=== PATIENT | female | born 1935 | race Caucasian/White ===

== ENCOUNTER 2016-07-09 15:28 | Outpatient (CLI) | payer MEDICARE, OTHER | END 2016-07-09 15:29 | disposition home or self-care (01) | DX: I82.811 Embolism and thrombosis of superficial veins of right lower extremity (principal) ==

== ENCOUNTER 2016-07-27 13:46 | Outpatient (CLI) | payer MEDICARE, OTHER | END 2016-07-27 13:47 | disposition home or self-care (01) | DX: I48.91 Unspecified atrial fibrillation (principal); Z79.01 Long term (current) use of anticoagulants; Z51.81 Encounter for therapeutic drug level monitoring; I82.401 Acute embolism and thrombosis of unspecified deep veins of right lower extremity ==

== ENCOUNTER 2016-07-30 10:34 | Outpatient (CLI) | payer MEDICARE, OTHER | END 2016-07-30 10:35 | disposition home or self-care (01) | DX: I48.91 Unspecified atrial fibrillation (principal); Z79.01 Long term (current) use of anticoagulants; Z51.81 Encounter for therapeutic drug level monitoring; I82.401 Acute embolism and thrombosis of unspecified deep veins of right lower extremity ==

== ENCOUNTER 2016-08-10 15:17 | Outpatient (CLI) | payer MEDICARE, OTHER | END 2016-08-10 15:18 | disposition home or self-care (01) | DX: I48.91 Unspecified atrial fibrillation (principal); I82.401 Acute embolism and thrombosis of unspecified deep veins of right lower extremity; Z51.81 Encounter for therapeutic drug level monitoring; Z79.01 Long term (current) use of anticoagulants ==

== ENCOUNTER 2016-08-17 15:30 | Outpatient (CLI) | payer MEDICARE, OTHER | END 2016-08-17 15:31 | disposition home or self-care (01) | LOC: LAB.F 15:30 | PROVIDERS: ATTEND Internal Medicine Cardiovascular Disease | DX: I48.91 Unspecified atrial fibrillation (principal); I82.401 Acute embolism and thrombosis of unspecified deep veins of right lower extremity; Z51.81 Encounter for therapeutic drug level monitoring; Z79.01 Long term (current) use of anticoagulants | CPT/HCPCS: 85610 ==

== ENCOUNTER 2016-09-04 14:20 | Outpatient (CLI) | payer MEDICARE, OTHER | END 2016-09-04 14:21 | disposition home or self-care (01) | LOC: LAB.F 14:20 | PROVIDERS: ATTEND Internal Medicine Cardiovascular Disease | DX: I48.91 Unspecified atrial fibrillation (principal); I82.401 Acute embolism and thrombosis of unspecified deep veins of right lower extremity; Z51.81 Encounter for therapeutic drug level monitoring; Z79.01 Long term (current) use of anticoagulants | CPT/HCPCS: 85610 ==

== ENCOUNTER 2016-10-04 13:42 | Outpatient (CLI) | payer MEDICARE, OTHER | END 2016-10-04 13:43 | disposition home or self-care (01) | LOC: LAB.F 13:42 | PROVIDERS: ATTEND Internal Medicine Cardiovascular Disease | DX: I48.91 Unspecified atrial fibrillation (principal); I82.401 Acute embolism and thrombosis of unspecified deep veins of right lower extremity; Z51.81 Encounter for therapeutic drug level monitoring; Z79.01 Long term (current) use of anticoagulants | CPT/HCPCS: 85610 ==

== ENCOUNTER 2016-10-11 08:00 | Outpatient (CLI) | payer MEDICARE, OTHER | END 2016-10-11 08:01 | LOC: LAB.F 08:00 | PROVIDERS: ATTEND Internal Medicine Cardiovascular Disease | DX: I48.91 Unspecified atrial fibrillation (principal); I82.401 Acute embolism and thrombosis of unspecified deep veins of right lower extremity | CPT/HCPCS: 85610 ==

== ENCOUNTER 2016-10-25 14:20 | Outpatient (CLI) | payer MEDICARE, OTHER | END 2016-10-25 14:21 | disposition home or self-care (01) | LOC: LAB.F 14:20 | PROVIDERS: ATTEND Internal Medicine Cardiovascular Disease | DX: I48.91 Unspecified atrial fibrillation (principal); I82.401 Acute embolism and thrombosis of unspecified deep veins of right lower extremity; Z51.81 Encounter for therapeutic drug level monitoring; Z79.01 Long term (current) use of anticoagulants | CPT/HCPCS: 85610 ==

== ENCOUNTER 2016-11-15 14:09 | Outpatient (CLI) | payer MEDICARE, OTHER | END 2016-11-15 14:10 | disposition home or self-care (01) | LOC: LAB.F 14:09 | PROVIDERS: ATTEND Internal Medicine Cardiovascular Disease | DX: I48.91 Unspecified atrial fibrillation (principal); I82.401 Acute embolism and thrombosis of unspecified deep veins of right lower extremity; Z79.01 Long term (current) use of anticoagulants; Z51.81 Encounter for therapeutic drug level monitoring | CPT/HCPCS: 85610 ==

== ENCOUNTER → 2016-11-29 | Outpatient (CLI) | payer MEDICARE, OTHER | LOC: LAB.F 08:00 | PROVIDERS: ATTEND Internal Medicine Cardiovascular Disease | DX: I48.91 Unspecified atrial fibrillation (principal); I82.401 Acute embolism and thrombosis of unspecified deep veins of right lower extremity; Z51.81 Encounter for therapeutic drug level monitoring; Z79.01 Long term (current) use of anticoagulants | CPT/HCPCS: 85610 ==

== ENCOUNTER 2016-12-13 13:19 | Outpatient (CLI) | payer MEDICARE, OTHER | END 2016-12-13 13:20 | disposition home or self-care (01) | LOC: LAB.F 13:19 | PROVIDERS: ATTEND Internal Medicine Cardiovascular Disease | DX: I48.91 Unspecified atrial fibrillation (principal); I82.401 Acute embolism and thrombosis of unspecified deep veins of right lower extremity; Z79.01 Long term (current) use of anticoagulants; Z51.81 Encounter for therapeutic drug level monitoring | CPT/HCPCS: 85610 ==

== ENCOUNTER 2016-12-27 13:41 | Outpatient (CLI) | payer MEDICARE, OTHER | END 2016-12-27 13:42 | disposition home or self-care (01) | LOC: LAB.F 13:41 | PROVIDERS: ATTEND Internal Medicine Cardiovascular Disease | DX: I48.91 Unspecified atrial fibrillation (principal); Z79.01 Long term (current) use of anticoagulants; I82.401 Acute embolism and thrombosis of unspecified deep veins of right lower extremity; Z51.81 Encounter for therapeutic drug level monitoring | CPT/HCPCS: 85610 ==

== ENCOUNTER 2017-02-14 14:13 | Outpatient (CLI) | payer MEDICARE, OTHER | END 2017-02-14 14:14 | disposition home or self-care (01) | LOC: LAB.F 14:13 | PROVIDERS: ATTEND Internal Medicine Cardiovascular Disease | DX: I48.91 Unspecified atrial fibrillation (principal); Z79.01 Long term (current) use of anticoagulants; Z51.81 Encounter for therapeutic drug level monitoring; I82.401 Acute embolism and thrombosis of unspecified deep veins of right lower extremity | CPT/HCPCS: 85610 ==

== ENCOUNTER 2017-03-18 08:00 | Outpatient (CLI) | payer MEDICARE, OTHER | END 2017-03-18 08:01 | disposition home or self-care (01) | LOC: LAB.F 08:00 | PROVIDERS: ATTEND Internal Medicine Cardiovascular Disease | DX: I48.91 Unspecified atrial fibrillation (principal); I82.401 Acute embolism and thrombosis of unspecified deep veins of right lower extremity; Z79.01 Long term (current) use of anticoagulants; Z51.81 Encounter for therapeutic drug level monitoring | CPT/HCPCS: 85610 ==

== ENCOUNTER 2017-04-18 12:31 | Outpatient (CLI) | payer MEDICARE, OTHER | END 2017-04-18 12:32 | disposition home or self-care (01) | LOC: LAB.F 12:31 | PROVIDERS: ATTEND Internal Medicine Cardiovascular Disease | DX: I48.91 Unspecified atrial fibrillation (principal); Z79.01 Long term (current) use of anticoagulants; Z51.81 Encounter for therapeutic drug level monitoring | CPT/HCPCS: 85610 ==

== ENCOUNTER 2017-06-18 13:27 | Outpatient (CLI) | payer MEDICARE, OTHER | END 2017-06-18 13:28 | disposition home or self-care (01) | LOC: LAB.F 13:27 | PROVIDERS: ATTEND Internal Medicine Cardiovascular Disease | DX: I48.91 Unspecified atrial fibrillation (principal); Z51.81 Encounter for therapeutic drug level monitoring; Z79.01 Long term (current) use of anticoagulants | CPT/HCPCS: 85610 ==

== ENCOUNTER 2017-08-15 11:19 | Outpatient (CLI) | payer MEDICARE, OTHER | END 2017-08-15 11:20 | disposition home or self-care (01) | LOC: LAB.F 11:19 | PROVIDERS: ATTEND Internal Medicine Cardiovascular Disease | DX: I48.91 Unspecified atrial fibrillation (principal); Z51.81 Encounter for therapeutic drug level monitoring; Z79.01 Long term (current) use of anticoagulants | CPT/HCPCS: 85610 ==

== ENCOUNTER 2017-09-13 11:25 | Outpatient (CLI) | payer MEDICARE, OTHER | END 2017-09-13 11:26 | disposition home or self-care (01) | LOC: LAB.F 11:25 | PROVIDERS: ATTEND Internal Medicine Cardiovascular Disease | DX: I48.91 Unspecified atrial fibrillation (principal); Z51.81 Encounter for therapeutic drug level monitoring; Z79.01 Long term (current) use of anticoagulants | CPT/HCPCS: 85610 ==

== ENCOUNTER 2017-10-14 14:25 | Outpatient (CLI) | payer MEDICARE, OTHER | END 2017-10-14 14:26 | disposition home or self-care (01) | LOC: LAB.F 14:25 | PROVIDERS: ATTEND Internal Medicine Cardiovascular Disease | DX: I48.91 Unspecified atrial fibrillation (principal); Z79.01 Long term (current) use of anticoagulants; Z51.81 Encounter for therapeutic drug level monitoring | CPT/HCPCS: 85610 ==

== ENCOUNTER 2017-11-13 14:47 | Outpatient (CLI) | payer MEDICARE, OTHER | END 2017-11-13 14:48 | disposition home or self-care (01) | LOC: LAB.F 14:47 | PROVIDERS: ATTEND Internal Medicine Cardiovascular Disease | DX: I48.91 Unspecified atrial fibrillation (principal); Z79.01 Long term (current) use of anticoagulants; Z51.81 Encounter for therapeutic drug level monitoring | CPT/HCPCS: 85610 ==

== ENCOUNTER 2017-12-16 13:35 | Outpatient (CLI) | payer MEDICARE, OTHER | END 2017-12-16 13:36 | disposition home or self-care (01) | LOC: LAB.F 13:35 | PROVIDERS: ATTEND Internal Medicine Cardiovascular Disease | DX: I48.91 Unspecified atrial fibrillation (principal); Z79.01 Long term (current) use of anticoagulants; Z51.81 Encounter for therapeutic drug level monitoring | CPT/HCPCS: 85610 ==

== ENCOUNTER 2018-01-28 11:55 | Outpatient (CLI) | payer MEDICARE, OTHER | END 2018-01-28 11:56 | disposition home or self-care (01) | LOC: LAB.F 11:55 | PROVIDERS: ATTEND Internal Medicine | DX: I48.91 Unspecified atrial fibrillation (principal); Z51.81 Encounter for therapeutic drug level monitoring; Z79.01 Long term (current) use of anticoagulants | CPT/HCPCS: 85610 ==

== ENCOUNTER 2018-02-11 13:10 | Outpatient (CLI) | payer MEDICARE, OTHER | END 2018-02-11 13:11 | disposition home or self-care (01) | LOC: LAB.F 13:10 | PROVIDERS: ATTEND Internal Medicine Cardiovascular Disease | DX: I48.91 Unspecified atrial fibrillation (principal); Z51.81 Encounter for therapeutic drug level monitoring; Z79.01 Long term (current) use of anticoagulants | CPT/HCPCS: 85610 ==

== ENCOUNTER 2018-02-25 14:17 | Outpatient (CLI) | payer MEDICARE, OTHER | END 2018-02-25 14:18 | disposition home or self-care (01) | LOC: LAB.F 14:17 | PROVIDERS: ATTEND Internal Medicine Cardiovascular Disease | DX: I48.91 Unspecified atrial fibrillation (principal); Z79.01 Long term (current) use of anticoagulants; Z51.81 Encounter for therapeutic drug level monitoring | CPT/HCPCS: 85610 ==

== ENCOUNTER 2018-04-09 14:48 | Outpatient (CLI) | payer MEDICARE, OTHER ==
[2018-04-09 17:55] LABS: CALCIUM 8.9 mg/dL (8.5-10.3); CREATININE 0.8 mg/dL (0.4-1.0)
== END 2018-04-09 14:49 | disposition home or self-care (01) ==
LOC: LAB.F 14:48
PROVIDERS: ATTEND Internal Medicine Cardiovascular Disease
DX: I10 Essential (primary) hypertension (principal); I50.22 Chronic systolic (congestive) heart failure
CPT/HCPCS: 36415; 80048

== ENCOUNTER 2018-04-24 12:00 | Outpatient (CLI) | payer MEDICARE, OTHER | END 2018-04-24 23:59 | disposition home or self-care (01) | LOC: LAB.F 12:00 | PROVIDERS: ATTEND Internal Medicine | DX: I48.91 Unspecified atrial fibrillation (principal); Z79.01 Long term (current) use of anticoagulants; Z51.81 Encounter for therapeutic drug level monitoring | CPT/HCPCS: 85610 ==

== ENCOUNTER 2018-05-27 14:58 | Outpatient (CLI) | payer MEDICARE, OTHER | END 2018-05-27 14:59 | disposition home or self-care (01) | LOC: LAB.F 14:58 | PROVIDERS: ATTEND Internal Medicine Cardiovascular Disease | DX: I48.91 Unspecified atrial fibrillation (principal); Z79.01 Long term (current) use of anticoagulants; Z51.81 Encounter for therapeutic drug level monitoring | CPT/HCPCS: 85610 ==

== ENCOUNTER 2018-06-25 14:15 | Outpatient (CLI) | payer MEDICARE, OTHER | END 2018-06-25 14:16 | disposition home or self-care (01) | LOC: LAB.F 14:15 | PROVIDERS: ATTEND Internal Medicine Cardiovascular Disease | DX: I48.91 Unspecified atrial fibrillation (principal); Z51.81 Encounter for therapeutic drug level monitoring; Z79.01 Long term (current) use of anticoagulants | CPT/HCPCS: 85610 ==

== ENCOUNTER 2018-07-31 12:00 | Outpatient (CLI) | payer MEDICARE, OTHER | END 2018-07-31 23:59 | disposition home or self-care (01) | LOC: LAB.F 12:00 | PROVIDERS: ATTEND Internal Medicine Cardiovascular Disease | DX: I48.91 Unspecified atrial fibrillation (principal); Z51.81 Encounter for therapeutic drug level monitoring; Z79.01 Long term (current) use of anticoagulants | CPT/HCPCS: 85610 ==

== ENCOUNTER 2018-09-04 14:57 | Outpatient (CLI) | payer MEDICARE, OTHER ==
[2018-09-04 17:27] LABS: INR 1.8 (0.8-1.2); PT - PROTHROMBIN TIME 20.4 secs (9.9-12.6)
== END 2018-09-04 14:58 | disposition home or self-care (01) ==
LOC: LAB.F 14:57
PROVIDERS: ATTEND Physician Assistant
DX: Z79.01 Long term (current) use of anticoagulants (principal)
CPT/HCPCS: 36415; 85610

== ENCOUNTER 2018-09-11 11:51 | Outpatient (CLI) | payer MEDICARE, OTHER ==
[2018-09-11 17:38] LABS: INR 1.9 (0.8-1.2); PT - PROTHROMBIN TIME 21.1 secs (9.9-12.6)
== END 2018-09-11 11:52 | disposition home or self-care (01) ==
LOC: LAB.F 11:51
PROVIDERS: ATTEND Physician Assistant
DX: Z79.01 Long term (current) use of anticoagulants (principal)
CPT/HCPCS: 36415; 85610

== ENCOUNTER 2018-09-23 15:22 | Outpatient (CLI) | payer MEDICARE, OTHER | END 2018-09-23 15:23 | disposition home or self-care (01) | LOC: LAB.F 15:22 | PROVIDERS: ATTEND Physician Assistant | DX: I48.91 Unspecified atrial fibrillation (principal) | CPT/HCPCS: 85610 ==

== ENCOUNTER 2018-11-26 15:04 | Outpatient (CLI) | payer MEDICARE, OTHER ==
--- NOTE | 2018-11-26 16:08 | Ultrasound Report ---
Reason: PAIN OF LEFT CALF Procedure Date: 11/26/2018 Accession Number: [id number] / [id number] Procedure: US - Duplex Ext Veins Left CPT Code: FULL RESULT: EXAM: LEFT LOWER EXTREMITY VENOUS ULTRASOUND EXAM DATE: 11/26/2018 03:10 PM. CLINICAL HISTORY: Pain of left calf. COMPARISON: DUPLEX EXT VEINS RIGHT 07/09/2016. DUPLEX EXT VEINS BILATERAL 02/11/2016. TECHNIQUE: Real-time sonographic vascular imaging was performed by the awning finisher through the lower extremity utilizing both color-flow and Doppler spectral analysis. Multiple medical collections representative static images were saved for review. FINDINGS: Common Femoral Vein (CFV): Normal. CFV-GSV Junction: Normal. Profunda Femoral Vein (PFV): Normal. Femoral Vein (FV) Prox: Normal. Femoral Vein (FV) Mid: Normal. Femoral Vein (FV) Dist: Normal. Popliteal Vein: Normal. Posterior Tibial Veins: Normal. Peroneal Veins: Normal. Other: Subcutaneous edema is confirmed in the medial subcutaneous soft tissues. IMPRESSION: Medial lower extremity subcutaneous edema. Otherwise no evidence for deep venous thrombosis. [facility] The call report notification system was initiated by Dr. Reggie Davis at 04:07 PM on 11/26/2018. The above call report findings were discussed with Natalia Rowell by Dr. Reggie Davis at 04:15 PM on 11/26/2018.
== END 2018-11-26 15:05 | disposition home or self-care (01) ==
LOC: DI 15:04
PROVIDERS: ATTEND Nurse Practitioner Family
DX: M79.662 Pain in left lower leg (principal); R60.0 Localized edema

== ENCOUNTER 2018-12-10 13:00 | Outpatient (CLI) | payer MEDICARE, OTHER | END 2018-12-10 13:01 | disposition home or self-care (01) | LOC: LAB.S 13:00 | PROVIDERS: ATTEND Physician Assistant | DX: I48.91 Unspecified atrial fibrillation (principal); Z79.01 Long term (current) use of anticoagulants | CPT/HCPCS: 85610 ==

== ENCOUNTER 2019-01-19 13:49 | Outpatient (CLI) | payer MEDICARE, OTHER | END 2019-01-19 13:50 | disposition home or self-care (01) | LOC: LAB.S 13:49 | PROVIDERS: ATTEND Physician Assistant | DX: Z79.01 Long term (current) use of anticoagulants (principal); I48.91 Unspecified atrial fibrillation | CPT/HCPCS: 85610 ==

== ENCOUNTER 2019-02-05 11:56 | Outpatient (CLI) | payer MEDICARE, OTHER | END 2019-02-05 11:57 | disposition home or self-care (01) | LOC: LAB.S 11:56 | PROVIDERS: ATTEND Physician Assistant | DX: Z79.01 Long term (current) use of anticoagulants (principal); I48.91 Unspecified atrial fibrillation | CPT/HCPCS: 85610 ==

== ENCOUNTER 2019-03-20 13:14 | Outpatient (CLI) | payer MEDICARE, OTHER | END 2019-03-20 13:15 | disposition home or self-care (01) | LOC: LAB.S 13:14 | PROVIDERS: ATTEND Physician Assistant | DX: Z79.01 Long term (current) use of anticoagulants (principal); I48.91 Unspecified atrial fibrillation | CPT/HCPCS: 85610 ==

== ENCOUNTER 2019-04-27 11:38 | Outpatient (CLI) | payer MEDICARE, OTHER | END 2019-04-27 11:39 | disposition home or self-care (01) | LOC: LAB.S 11:38 | PROVIDERS: ATTEND Physician Assistant | DX: Z79.01 Long term (current) use of anticoagulants (principal); I48.91 Unspecified atrial fibrillation | CPT/HCPCS: 85610 ==

== ENCOUNTER 2019-05-27 14:14 | Outpatient (CLI) | payer MEDICARE, OTHER | END 2019-05-27 14:15 | disposition home or self-care (01) | LOC: LAB.S 14:14 | PROVIDERS: ATTEND Physician Assistant | DX: Z79.01 Long term (current) use of anticoagulants (principal); I48.91 Unspecified atrial fibrillation | CPT/HCPCS: 85610 ==

== ENCOUNTER 2019-06-25 14:27 | Outpatient (CLI) | payer MEDICARE, OTHER | END 2019-06-25 14:28 | disposition home or self-care (01) | LOC: LAB.S 14:27 | PROVIDERS: ATTEND Physician Assistant | DX: I48.91 Unspecified atrial fibrillation (principal); Z79.01 Long term (current) use of anticoagulants | CPT/HCPCS: 85610 ==

== ENCOUNTER 2019-08-28 11:38 | Outpatient (CLI) | payer MEDICARE, OTHER | END 2019-08-28 11:39 | disposition home or self-care (01) | LOC: LAB 11:38 | PROVIDERS: ATTEND Physician Assistant | DX: I48.91 Unspecified atrial fibrillation (principal); Z79.01 Long term (current) use of anticoagulants | CPT/HCPCS: 85610 ==

== ENCOUNTER 2019-09-16 12:14 | Outpatient (CLI) | payer MEDICARE, OTHER | END 2019-09-16 12:15 | disposition home or self-care (01) | LOC: LAB.S 12:14 | PROVIDERS: ATTEND Physician Assistant | DX: I48.91 Unspecified atrial fibrillation (principal); Z79.01 Long term (current) use of anticoagulants | CPT/HCPCS: 85610 ==

== ENCOUNTER 2019-10-19 15:41 | Outpatient (CLI) | payer MEDICARE, OTHER | END 2019-10-19 15:42 | disposition home or self-care (01) | LOC: LAB.S 15:41 | PROVIDERS: ATTEND Physician Assistant | DX: I48.91 Unspecified atrial fibrillation (principal); Z79.01 Long term (current) use of anticoagulants | CPT/HCPCS: 85610 ==

== ENCOUNTER 2019-11-04 11:57 | Outpatient (CLI) | payer MEDICARE, OTHER | END 2019-11-04 11:58 | disposition home or self-care (01) | LOC: LAB.S 11:57 | PROVIDERS: ATTEND Physician Assistant | DX: I48.91 Unspecified atrial fibrillation (principal); Z79.01 Long term (current) use of anticoagulants | CPT/HCPCS: 85610 ==

== ENCOUNTER 2019-12-25 11:35 | Outpatient (CLI) | payer MEDICARE, OTHER | END 2019-12-25 11:36 | disposition home or self-care (01) | LOC: LAB.S 11:35 | PROVIDERS: ATTEND Physician Assistant | DX: I48.91 Unspecified atrial fibrillation (principal); Z79.01 Long term (current) use of anticoagulants | CPT/HCPCS: 85610 ==

== ENCOUNTER 2020-01-21 14:11 | Outpatient (CLI) | payer MEDICARE, OTHER | END 2020-01-21 14:12 | disposition home or self-care (01) | LOC: LAB.S 14:11 | PROVIDERS: ATTEND Physician Assistant | DX: I48.91 Unspecified atrial fibrillation (principal); Z79.01 Long term (current) use of anticoagulants | CPT/HCPCS: 85610 ==

== ENCOUNTER 2020-02-02 11:22 | Outpatient (CLI) | payer MEDICARE, OTHER | END 2020-02-02 11:23 | disposition home or self-care (01) | LOC: LAB.S 11:22 | PROVIDERS: ATTEND Physician Assistant | DX: I48.91 Unspecified atrial fibrillation (principal); Z79.01 Long term (current) use of anticoagulants | CPT/HCPCS: 85610 ==

== ENCOUNTER 2020-03-09 12:45 | Outpatient (CLI) | payer MEDICARE, OTHER | END 2020-03-09 12:46 | disposition home or self-care (01) | LOC: LAB.S 12:45 | PROVIDERS: ATTEND Physician Assistant | DX: Z79.01 Long term (current) use of anticoagulants (principal); I48.91 Unspecified atrial fibrillation | CPT/HCPCS: 85610 ==

== ENCOUNTER 2020-03-25 12:25 | Outpatient (CLI) | payer MEDICARE, OTHER | END 2020-03-25 12:26 | disposition home or self-care (01) | LOC: LAB.S 12:25 | PROVIDERS: ATTEND Physician Assistant | DX: Z79.01 Long term (current) use of anticoagulants (principal); I48.91 Unspecified atrial fibrillation | CPT/HCPCS: 85610 ==

== ENCOUNTER 2020-04-28 12:15 | Outpatient (CLI) | payer MEDICARE, OTHER | END 2020-04-28 12:16 | disposition home or self-care (01) | LOC: LAB.S 12:15 | PROVIDERS: ATTEND Physician Assistant | DX: I48.91 Unspecified atrial fibrillation (principal); Z79.01 Long term (current) use of anticoagulants | CPT/HCPCS: 85610 ==

== ENCOUNTER 2020-05-30 11:28 | Outpatient (CLI) | payer MEDICARE, OTHER | END 2020-05-30 11:29 | disposition home or self-care (01) | LOC: LAB.S 11:28 | PROVIDERS: ATTEND Physician Assistant | DX: Z79.01 Long term (current) use of anticoagulants (principal); I48.91 Unspecified atrial fibrillation | CPT/HCPCS: 85610 ==

== ENCOUNTER 2021-04-11 11:54 | Outpatient (CLI) | payer MEDICARE, OTHER | END 2021-04-11 11:55 | disposition home or self-care (01) | LOC: LAB.S 11:54 | PROVIDERS: ATTEND Physician Assistant | DX: Z79.01 Long term (current) use of anticoagulants (principal); I48.91 Unspecified atrial fibrillation | CPT/HCPCS: 36416; 85610 ==

== ENCOUNTER 2021-05-27 11:32 | Emergency (ER) | payer MEDICARE, OTHER ==
--- NOTE | 2021-05-27 11:57 | ED Physician Documentation ---
PD HPI HEAD INJURY - Stated complaint Stated Complaint: WRIST PX - Chief complaint Chief Complaint: Trauma Hd/Nk - History obtained from History obtained from: Patient - History of Present Illness Mechanism of head injury: Fell Where head injury occurred: Home Timing - onset: Enter time (1800), Last night Location of injury: Right, Front Quality of pain: Pain Associated symptoms: Other (injury to the right wrist). No: LOC, AMS, Amnesia, Nausea / vomiting, Neck pain, Paresthesias, Seizures, Ear drainage, Nasal drainage Symptoms improve with: Rest Symptoms worsen with: Palpation, Movement Contributing factors: Anticoagulated Similar symptoms before: Has not had sx before Recently seen: Not recently seen - Additional information Additional information: Previously well 85-year-old female on Coumadin with a history of atrial fibrillation and a history of CLL as well as an aortic aneurysm has had a fall in her home last night when she tripped over the leg of a rocking chair. She fell forward striking the right sabianist. She did not have loss of consciousness and she denies any neck pain she denies any dizziness lightheadedness numbness tingling or weakness. She injured her right wrist when this occurred and this is her main complaint. She complains of pain to the dorsal aspect of the wrist with a lot of swelling. She denies any pain to her neck she denies any difficulty with dizziness lightheadedness confusion or nausea associated with her head injury. Review of Systems Constitutional: denies: Fever, Chills, Myalgias Eyes: denies: Decreased vision Ears: denies: Ear pain Nose: denies: Rhinorrhea / runny nose, Congestion Throat: denies: Sore throat Cardiac: denies: Chest pain / pressure, Palpitations Respiratory: denies: Dyspnea, Cough GI: denies: Abdominal Pain, Nausea, Vomiting, Constipation, Diarrhea : denies: Dysuria, Frequency Skin: denies: Rash Musculoskeletal: reports: Extremity pain, Joint pain, Extremity swelling, Joint swelling. denies: Neck pain, Back pain Neurologic: denies: Generalized weakness, Focal weakness, Numbness PD PAST MEDICAL HISTORY - Past Medical History Cardiovascular: Hypertension, Atrial fibrillation, Valve disorder, Other Respiratory: Shortness of breath Endocrine/Autoimmune: None GI: None ARC AND GAS WELDER: None : None HEENT: Glaucoma Psych: None Musculoskeletal: Osteoporosis Derm: None - Past Surgical History Past Surgical History: Yes General: Bowel surgery, Colonoscopy /ARC AND GAS WELDER: Hysterectomy Cardiovascular: Valve replacement HEENT: Cataracts, Detached retina repair - Present Medications Home Medications: Ambulatory Orders Medication Instructions Recorded Confirmed Digoxin 0.125 mg PO DAILY 02/08/13 05/27/21 Furosemide 40 mg PO BID 02/08/13 05/27/21 Metoprolol Succinate 100 mg PO BID 02/11/16 05/27/21 Potassium Chloride [Micro-K] 10 meq PO BID 02/11/16 05/27/21 Warfarin [Coumadin] 5 mg PO DAILY 01/13/18 05/27/21 Losartan Potassium [Cozaar] 100 mg PO DAILY 05/27/21 05/27/21 - Allergies Allergies/Adverse Reactions: Allergies Allergy/AdvReac Type Severity Reaction Status Date / Time No Known Drug Allergies Allergy Verified 05/27/21 11:46 - Social History Does the pt smoke?: No Smoking Status: Never smoker Does the pt drink ETOH?: No Does the pt have substance abuse?: No - Immunizations Immunizations are current?: Yes - POLST Patient has POLST: No PD ED PE NORMAL - Vitals Vital signs reviewed: Yes (hypertensive ) - General General: Alert and oriented X 3, No acute distress, Well developed/nourished, Other (happy go charlie lady in no distress pleasant.) - HEENT HEENT: Other (Nice older lady with ecchymosis to the right timmy-orbital tissues without laceration or evidence of entrapment. The left Pupil is large status post surgery. Right is normally reactive.) - Neck Neck: Supple, no meningeal sign, No bony TTP - Cardiac Cardiac: Other (irregularly irregular rate and rhythm with 2/6 holosystolic murmer. ) - Respiratory Respiratory: No respiratory distress, Clear bilaterally - Abdomen Abdomen: Soft, Non tender - Back Back: No CVA TTP, No spinal TTP - Derm Derm: Normal color, Warm and dry, No rash - Extremities Extremities: Other (There is fracture deformity to the right dorsal wrist with swelling point tenderness and ecchymosis. 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 No significant intracranial abnormality is seen. Age-appropriate brain parenchymal volume loss and chronic small vessel ischemic change can be seen.), EMP read indepedently, See rad report wrist Radiology: Prelim report reviewed (Impression: No displaced fractures are seen on these plain films. If there is snuffbox tenderness (or other clinical concern for a fracture not seen in these pictures) please consider a dedicated CT study for further evaluation. The generalized degenerative changes are seen, which are worst involv), EMP read indepedently, See rad report PD MEDICAL DECISION MAKING - ED course Complexity details: reviewed results, re-evaluated patient, considered differential, d/w patient ED course: [id number] female on Coumadin for atrial fibrillation on her home last night tripping and she has injured her forehead with some ecchymosis in the periorbital tissues. She has no evidence of intracranial hemorrhage on CT examination of the head. She also has injured her right wrist and is unable to open a door even with the splint on. 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 She is placed into a volar splint I have asked her to follow-up with orthopedics. Departure - Departure Disposition: 01 Home, Self Care Clinical Impression: Concussion Qualifiers: Encounter type: initial encounter Loss of consciousness presence/duration: without LOC Qualified Code(s): S06.0X0A - Concussion without loss of consciousness, initial encounter Right wrist sprain Qualifiers: Encounter type: initial encounter Qualified Code(s): S63.501A - Unspecified sprain of right wrist, initial encounter Condition: Stable Instructions: ED Concussion, ED Sprain Wrist Follow-Up: Marlen Prescott ARNP [Primary Care Provider] - Justin Villanueva MD [Provider Admit Priv/Credential] - Comments: Erin, today your CT of your head does not show any bleeding. There are abnormalities to the wrist x-ray to suggest a bad sprain and follow up with the orthopedic doctor is recommended. Discharge Date/Time: 05/27/21 13:17
--- NOTE | 2021-05-27 12:22 | CT Report ---
PROCEDURE: HEAD WO INDICATIONS: coumadin, head injury TECHNIQUE: Noncontrast 4.5 mm thick angled axial sections acquired from the foramen magnum to the vertex. For r adiation dose reduction, the following was used: automated exposure control, adjustment of mA and/or kV according to patient size. COMPARISON: None. FINDINGS: Image quality: Excellent. CSF spaces: Basal cisterns are patent. No extra-axial fluid collections. Ventricles are normal in size and shape. Brain: No midline shift. No intracranial masses or hemorrhage. Urrutia-white matter interface is norm al. Age-appropriate brain parenchymal volume loss and chronic small vessel ischemic change can be se en. Mild symmetric calcification can be seen involving the basal ganglia, which is considered to be normal for age. Skull and face: Calvarium and visualized facial bones are intact, without suspicious lesions. Appar ent postoperative change can be seen along the lateral aspect of the right lobe, as on series 7 image 18. Sinuses: Visualized sinuses and mastoids are clear. IMPRESSION: No intracranial hemorrhage is seen. No significant intracranial abnormality is seen. Age-appropriate brain parenchymal volume loss and chronic small vessel ischemic change can be seen. Reviewed by: Quinn Fisher MD on 05/27/2021 11:21 AM [facility] Approved by: Quinn Fisher MD on 05/27/2021 11:21 AM [facility] Station ID: [id number]
--- NOTE | 2021-05-27 12:31 | XRAY Report ---
PROCEDURE: Wrist 4 View RT INDICATIONS: fall pain to the dorsal aspect of wrist. TECHNIQUE: 4 views of the wrist were acquired. COMPARISON: None FINDINGS: Bones: No acute appearing fractures or dislocations. Remote appearing deformity can be seen of the d istal ulna, which is likely related to remote fracture. There is mild widening of the scapholunate in terface. Degenerative changes are seen, which are worst involving the first carpometacarpal joint. No suspicio us bony lesions. Scaphoid view: No scaphoid fractures are seen. Soft tissues: Mild generalized soft tissue swelling is seen. IMPRESSION: No displaced fractures are seen on these plain films. If there is snuffbox tenderness (or other clinical concern for a fracture not seen on these images) p lease consider a dedicated CT study for further evaluation. Generalized degenerative changes are seen, which are worst involving the first carpometacarpal joint. There is mild scapholunate widening. A scapholunate ligament tear is suspected. Reviewed by: Quinn Fisher MD on 05/27/2021 11:29 AM [facility] Approved by: Quinn Fisher MD on 05/27/2021 11:29 AM [facility] Station ID: [id number]
[2021-05-27 13:07] VITALS: BP 145/66
== END 2021-05-27 13:17 | disposition home or self-care (01) ==
LOC: ED 11:32
DX: S06.0X0A Concussion without loss of consciousness, initial encounter (principal); S63.501A Unspecified sprain of right wrist, initial encounter; W01.0XXA Fall on same level from slipping, tripping and stumbling without subsequent striking against object, initial encounter; Y92.009 Unspecified place in unspecified non-institutional (private) residence as the place of occurrence of the external cause; Z79.01 Long term (current) use of anticoagulants; I48.91 Unspecified atrial fibrillation; I10 Essential (primary) hypertension; Z95.2 Presence of prosthetic heart valve
CPT/HCPCS: 29125; 36415; 99282; 99284

== ENCOUNTER 2023-08-12 12:44 | Outpatient (CLI) | payer MEDICARE, OTHER ==
[2023-08-12 14:43] LABS: BASOPHILS % (AUTO) 0.4 %; EOSINOPHILS % (AUTO) 1.1 %; HCT - HEMATOCRIT 35.1 % (37.0-47.0); HGB - HEMOGLOBIN 11.1 g/dL (12.0-16.0); MEAN CORPUSCULAR HEMOGLOBIN 33.2 pg (27.0-31.0); MEAN CORPUSCULAR HGB CONC 31.6 g/dL (32.0-36.0); MEAN CORPUSCULAR VOLUME 105.1 fL (81.0-99.0); MEAN PLATELET VOLUME 10.2 fL (7.9-10.8); MONOCYTES % (AUTO) 5.1 %; NEUTROPHILS % (AUTO) 36.2 %; PLT - PLATELET COUNT 134 10^3/uL (130-450); RED BLOOD COUNT 3.34 10^6/uL (4.20-5.40); RED CELL DISTRIBUTION WIDTH 14.6 % (12.0-15.0); WHITE BLOOD COUNT 9.5 x10^3/uL (4.8-10.8)
[2023-08-12 14:51] LABS: BAND NEUTROPHILS % (MANUAL) 0 %
[2023-08-12 15:04] LABS: ALBUMIN 4.1 g/dL (3.2-5.5); ALBUMIN/GLOBULIN RATIO 1.5 (1.0-2.2); BILIRUBIN,TOTAL 0.7 mg/dL (0.2-1.0); CALCIUM 9.7 mg/dL (8.5-10.3); CREATININE 1.8 mg/dL (0.6-1.3); POTASSIUM 4.2 mmol/L (3.5-4.5); TOTAL PROTEIN 6.8 g/dL (6.4-8.9)
[2023-08-12 17:02] LABS: ABNORMAL LYMPHS % (MANUAL) 13 %; BASOPHILS # (MANUAL) 0.1 10^3/uL (0-0.1); BASOPHILS % (MANUAL) 1 %; EOSINOPHILS # (MANUAL) 0.2 10^3/uL (0-0.7); LYMPHOCYTES # (MANUAL) 5.9 10^3/uL (1.5-3.5); LYMPHOCYTES % (MANUAL) 49 %; MONOCYTES # (MANUAL) 0.2 10^3/uL (0.0-1.0); MYELOCYTES % (MANUAL) 2 %; NEUTROPHILS # (MANUAL) 2.9 10^3/uL (1.5-6.6)
[2023-08-12 17:07] LABS: DIFFERENTIAL COMMENT MANUAL DIFFERENTIAL; PLATELET ESTIMATE, MANUAL NORMAL (130-450,000) (NORMAL); PLATELET MORPHOLOGY NORMAL APPEARANCE (NORMAL)
== END 2023-08-12 12:45 | disposition home or self-care (01) ==
LOC: LAB.S 12:44
PROVIDERS: ATTEND Nurse Practitioner
DX: R60.0 Localized edema (principal)
CPT/HCPCS: 36415; 80053; 83880; 85025

== ENCOUNTER 2023-11-22 16:30 | Outpatient (CLI) | payer MEDICARE, OTHER | END 2023-11-22 16:31 | disposition critical access hospital (66) | LOC: EMS 16:30 | DX: M54.50 Low back pain, unspecified (principal); W18.39XA Other fall on same level, initial encounter; Y93.89 Activity, other specified; Y92.008 Other place in unspecified non-institutional (private) residence as the place of occurrence of the external cause | CPT/HCPCS: A0425; A0427 ==

== ENCOUNTER 2023-11-22 16:54 | Emergency (ER) | payer MEDICARE, OTHER ==
--- NOTE | 2023-11-22 17:01 | ED Physician Documentation ---
History of Present Illness - Stated complaint Stated Complaint: GLF - History obtained from History obtained from: Patient - Additonal information Additional information: Patient is a 88-year-old female presenting to the emergency department from home after a fall at home. Patient was carrying wood outside when she tripped and fell. Patient does not recall hitting her head or losing consciousness however patient is on warfarin. She notes persistent back pain and was unable to get back up. Patient has chronic history of thoracic back pain and wears a brace when doing heavy lifting however patient has no history of lumbar back pain. She notes pain is to her lower back with left sided radiation. She has no numbness or tingling in her legs. She received 50 mcgs of fentanyl prior to arrival. PD PAST MEDICAL HISTORY - Present Medications Home Medications: Ambulatory Orders Medication Instructions Recorded Confirmed Warfarin [Coumadin] 5 mg PO DAILY 01/13/18 11/22/23 Losartan Potassium [Cozaar] 100 mg PO DAILY 05/27/21 11/22/23 carvediloL [Coreg] 25 mg PO DAILY 06/11/22 11/22/23 HYDROcod/ACETAM 5/325 [[place] 5/325] 1 - 2 tab PO Q6H PRN #15 tablet 11/22/23 Torsemide 20 mg PO DAILY 11/22/23 11/22/23 - Allergies Allergies/Adverse Reactions: Allergies Allergy/AdvReac Type Severity Reaction Status Date / Time No Known Drug Allergies Allergy Unverified 11/22/23 17:12 PD ED PE NORMAL - Vitals Vital signs reviewed: Yes - General General: Alert and oriented X 3 - HEENT HEENT: Atraumatic - Neck Neck: C-Spine cleared by NEXUS criteria - Cardiac Cardiac: RRR, Other (Irregular heart rhythm on palpation.) - Respiratory Respiratory: No respiratory distress, Clear bilaterally - Abdomen Abdomen: Normal bowel sounds - Back Back: No CVA TTP, Other (Reproducible thoracic spinous process tenderness and lumbar spinous process tenderness on palpation. No obvious step-off no obvious swelling or bruising appreciated. No rib tenderness on examination.) - Derm Derm: Other - Extremities Extremities: No deformity - Neuro Neuro: Alert and oriented X 3, No motor deficit, No sensory deficit, Other (Patient intact sensation and strength bilaterally lower extremities.) Eye Opening: Spontaneous Motor: Obeys Commands Verbal: Oriented GCS Score: 15 Results - Vitals Vitals: Vital Signs - 24 hr 11/22/23 11/22/23 11/22/23 17:04 19:12 21:35 Temperature 35.6 C L Heart Rate 60 78 83 Respiratory 17 14 21 Rate Blood Pressure 152/77 H 155/71 H 152/94 H O2 Saturation 93 100 96 If not protocol 2 : Oxygen Flow, liters/minute Oxygen O2 Source Nasal cannula - EKG (time done) 1717 EKG releavant findings:: EKG personally interpreted by author of this note. Relevant findings are: Rate: Rate (enter#), Gabino, Tachy, Other Rhythm: Atrial fibrillation Fleming: LAD QRS: Poor R wave progression Ischemia: Normal ST segments Compare to prior EKG: Unchanged from prior EKG, Other (There appears to be T wave inversion in lateral leads and anterior leads. Compared with EKG in 2016 no acute changes.) Computer interpretation: Agree with computer - Labs Labs: Laboratory Tests 11/22/23 11/22/23 11/22/23 17:06 17:06 17:06 WBC 8.0 RBC 3.13 L Hgb 10.2 L Hct 32.4 L MCV 103.5 H MCH 32.6 H MCHC 31.5 L RDW 13.8 Plt Count 116 L MPV 10.0 Neut # (Auto) 3.8 Lymph # (Auto) 3.7 H [place] # (Auto) 0.4 Eos # (Auto) 0.1 Baso # (Auto) 0.0 Absolute Nucleated RBC 0.00 Nucleated RBC % 0.0 PT 24.5 H INR 2.4 H Sodium 137 Potassium 4.6 H Chloride 101 Carbon Dioxide 30 Anion Gap 6.0 BUN 53 H Creatinine 1.6 H Estimated GFR (MDRD) 30 L Glucose 125 H Calcium 9.2 Total Bilirubin 0.6 AST 22 ALT 12 Alkaline Phosphatase 35 L Total Protein 6.2 L Albumin 3.7 Globulin 2.5 Albumin/Globulin Ratio 1.5 - Rads (name of study) CT head Relevant Findings:: EMP independent interpretation of test CT thoracic and lumbar spine Relevant Findings:: EMP independent interpretation of test, Other PD Medical Decision Making - ED course Complexity details: reviewed old records, reviewed results, re-evaluated patient ED course: Patient is an 88-year-old female who presents to the emergency department after a fall at home. Patient tripped after carrying wood when taking down a bunch. Patient denies losing consciousness she denies hitting her head. Patient is on warfarin. 1720: Patient became nauseous and lightheaded. Patient's reading on pulse ox went down to 20 bpm. Reevaluated patient she is feeling much better we will give a small dose of Zofran here in emergency department. Patient also given ice packs to cool her off as she was diaphoretic when she came in concerns for possible heat exhaustion. Patient EKG obtained shortly after shows atrial fibrillation with abnormal ischemia in diffuse leads. This is unchanged from prior EKG in 08/2015. CT of head obtained given patient is on warfarin and concern for fall with patient unable to get up concern for possible injury to head. Additionally lumbar spinous process tenderness on examination and thoracic spinous process tenderness on examination will obtain CT scan of thoracic and lumbar spine. Patient C-spine cleared with NEXUS criteria here in the ED. Basic labs obtained here given patient is on blood thinners and concern for possible head bleed. INR is 2.4 this appears stable with history of atrial fibrillation. Creatinine is 1.6. This is not significantly off patient's baseline. Hemoglobin is 10.1 additionally this is similar to patient's baseline. Patient CT findings here in the emergency department were concerning for lumbar fractures with fracture to transverse process L1-L4 chronic fracture to T12 and unstable fracture to T8 of thoracic process. Patient continues to have no focal neurodeficit. [facility] was called due to significant fractures to spine. Discussed case with Dr. Morrell at [facility] he notes patient as long as she can walk there is no acute intervention needed at this time. Patient's CT spine was returned negative no signs of fracture. Patient able to walk here in emergency department. Patient feels safe to go home at this time. Patient instructed to follow-up with orthopedics as Dr. Morrell recommended in 2 to 3 weeks. She will follow-up with him for spine surgery. She understands and is agreeable with this plan. Patient instructed to watch for numbness tingling or worsening pain in her legs. Or any weakness. Patient agreeable with this plan she has a walker at home does not need one here. Patient able to walk out of emergency department. Departure - Departure Disposition: 01 Home, Self Care Clinical Impression: Thoracic spine fracture, Lumbar transverse process fracture Condition: Fair Instructions: ED Sprain Thoracic Spine Follow-Up: Andrés Morrell MD [Physician No Access] - Prescriptions: HYDROcod/ACETAM 5/325 [[place] 5/325] 1 - 2 tab PO Q6H PRN #15 tablet PRN Reason: Pain Comments: I am prescribing a short course of narcotic pain medication for you. These are potentially dangerous and addictive medications that should be used carefully. These medications may constipate you. Take an jhsr-aho-bgaxpjf stool softener (docusate) twice daily with plenty of water while taking these medications. If you go 24 hours without a bowel movement, take czhl-gjc-hliictw miralax, per package instructions. Do not drink or drive while taking these medications. If you received narcotic or sedating medications while in the emergency department, do not drive for 24 hours. Store this medication in a safe, secure place and out of reach of children. It is a violation of federal law to give or sell this medication to another person or to use in a manner other than prescribed. The ED will not refill narcotic prescriptions, including prescriptions lost or stolen. To dispose of unwanted medications: 1. [facility] provides a drop box for medication in pill form only (no liquids) 8:00 am to 4:30 p.m. Saturday-Saturday in the lobby of the [facility], [address] [place] [address]. Empty pills into ziplock bag before disposal. Call [phone] for information. 2.[employer] is a free service available to all [facility] residents. Go to [email or web address]/[email or web address]/ Note that many narcotic pain relievers also contain Tylenol/acetaminophen. Please ensure that your total dose of acetaminophen from all sources does not exceed 3 g (3000 mg) per day. You were seen here in the emergency department you need to follow-up with orthopedics in the outpatient setting I have given you the phone number in 2 to 3 weeks you need to follow-up. Your symptoms of low back pain were given pain medications please read narcotic pain medication agreement above. Additionally please watch for any numbness tingling weakness loss of sensation to your lower legs this is a sign of worsening fracture and you need to return to admit emergency department immediately.
[2023-11-22 17:14] LABS: BASOPHILS % (AUTO) 0.5 %; EOSINOPHILS # (AUTO) 0.1 10^3/uL (0.0-0.7); EOSINOPHILS % (AUTO) 0.9 %; HCT - HEMATOCRIT 32.4 % (37.0-47.0); HGB - HEMOGLOBIN 10.2 g/dL (12.0-16.0); LYMPHOCYTES # (AUTO) 3.7 10^3/uL (1.5-3.5); LYMPHOCYTES % (AUTO) 45.7 %; MEAN CORPUSCULAR HEMOGLOBIN 32.6 pg (27.0-31.0); MEAN CORPUSCULAR HGB CONC 31.5 g/dL (32.0-36.0); MEAN CORPUSCULAR VOLUME 103.5 fL (81.0-99.0); MONOCYTES # (AUTO) 0.4 10^3/uL (0.0-1.0); NEUTROPHILS # (AUTO) 3.8 10^3/uL (1.5-6.6); NEUTROPHILS % (AUTO) 47.5 %; PLT - PLATELET COUNT 116 10^3/uL (130-450); RED BLOOD COUNT 3.13 10^6/uL (4.20-5.40); RED CELL DISTRIBUTION WIDTH 13.8 % (12.0-15.0)
[2023-11-22 17:27] LABS: ALBUMIN 3.7 g/dL (3.2-5.5); ALBUMIN/GLOBULIN RATIO 1.5 (1.0-2.2); BILIRUBIN,TOTAL 0.6 mg/dL (0.2-1.0); CALCIUM 9.2 mg/dL (8.5-10.3); CREATININE 1.6 mg/dL (0.6-1.3); POTASSIUM 4.6 mmol/L (3.5-4.5); TOTAL PROTEIN 6.2 g/dL (6.4-8.9)
[2023-11-22 17:37] LABS: INR 2.4 (0.8-1.2); PT - PROTHROMBIN TIME 24.5 secs (9.9-12.6)
[2023-11-22] MEDS: MORPHINE 2 MG/ML CARPUJECT IVP STA (18:21)
[2023-11-22] MEDS: ONDANSETRON 4 MG/2 ML VIAL IVP STA (18:21)
--- NOTE | 2023-11-22 18:50 | CT Report ---
PROCEDURE: Head WO INDICATIONS: fall on warfarin TECHNIQUE: Noncontrast 4.5 mm thick angled axial sections acquired from the foramen magnum to the vertex. For r adiation dose reduction, the following was used: automated exposure control, adjustment of mA and/or kV according to patient size. COMPARISON: 05/27/2021 FINDINGS: Image quality: Excellent. CSF spaces: Basal cisterns are patent. No extra-axial fluid collections. Ventricles are normal in size and shape. Brain: No midline shift. No intracranial masses or hemorrhage. Urrutia-white matter interface is norm al. Cerebral cortical atrophy and mild periventricular hypodensity in the white matter, age-appropri ate. Heavy atherosclerotic calcification of the intracranial ICAs. Skull and face: Calvarium and visualized facial bones are intact, without suspicious lesions. Sinuses: Visualized sinuses and mastoids are clear. IMPRESSION: No CT evidence of acute intracranial trauma. No significant soft tissue injury or underlying fracture. Age-appropriate brain changes. Reviewed by: Archana Marrero MD on 11/22/2023 6:49 PM PDT Approved by: Archana Marrero MD on 11/22/2023 6:49 PM PDT Station ID: [id number]
--- NOTE | 2023-11-22 19:23 | CT Report ---
PROCEDURE: Thoracic Spine WO INDICATIONS: thoracic pain after fall TECHNIQUE: Noncontrast 3 mm thick sections acquired through the region of interest in the thoracic spine. Sagit na and coronal reformats were then constructed. For radiation dose reduction, the following was used : automated exposure control, adjustment of mA and/or kV according to patient size. COMPARISON: CTA of the chest 01/10/2018 and FINDINGS: Image quality: Excellent. Bones: There is a diffuse, moderate compression fracture of T8 which appears acute. No significant re tropulsion of fracture fragments into the central canal. There are oblique horizontally oriented frac tures through the facets at this level, best seen on sagittal images 13/39 and 13/. There is a righ t-sided minimally displaced transverse process fracture of L1. There is a severe L1 wedge compression fracture which is chronic. There is diffusely kyphotic curvature of the thoracic spine but no sublux ation of vertebral bodies. Soft tissues: The visible lung crook demonstrate dependent atelectatic changes and right lung base g ranuloma. Minimal paraspinal soft tissue swelling at the fracture level of T8. The heart is diffusely enlarged and there are valvuloplasty changes. There is a descending thoracic aortic stent in place. IMPRESSION: Acute moderate compression fracture of T8 with nondisplaced fractures of posterior elements. This is considered unstable fracture. Chronic, unchanged severe anterior compression fracture of L1. Reviewed by: Archana Marrero MD on 11/22/2023 7:22 PM PDT Approved by: Archana Marrero MD on 11/22/2023 7:22 PM PDT Station ID: [id number]
--- NOTE | 2023-11-22 19:32 | CT Report ---
PROCEDURE: Lumbar Spine WO INDICATIONS: lumbar back pain TECHNIQUE: Noncontrast 3 mm thick sections acquired from the T12 level to the sacrum. Sagittal and coronal refo rmats were constructed. For radiation dose reduction, the following was used: automated exposure co ntrol, adjustment of mA and/or kV according to patient size. COMPARISON: CTA of chest abdomen and pelvis 01/07/2017 FINDINGS: Image quality: Excellent. Bones: Chronic, stable T12 compression fracture and. Moderate dextroscoliosis and with mild rightward subluxation of L3-4 . Trace retrolisthesis L3-4 and L4-5. Severe disc height loss and L3-4 and L4-5 with vacuum phenomenon seen in the left aspect of several disc spaces. No acute vertebral body height loss. There is a mildly displaced transverse process fracture on the right at L1. Moderately displaced weinstein sverse process fractures on the right at L2 and, L3, and minimally at L4. Soft tissues: No retroperitoneal masses or hematomas. Visualized aorta is heavily atherosclerotic a nd tortuous. Upper abdominal aortic stent in place. IMPRESSION: Acute right-sided transverse process fractures from L1 through L4. No acute vertebral body fractures. Reviewed by: Archana Marrero MD on 11/22/2023 7:30 PM PDT Approved by: Archana Marrero MD on 11/22/2023 7:30 PM PDT Station ID: [id number]
--- NOTE | 2023-11-22 21:08 | CT Report ---
PROCEDURE: Cervical Spine WO INDICATIONS: evaluate for fracture of neck. Fall. Pain. TECHNIQUE: Noncontrast 3 mm thick sections acquired from the skull base to the T4 level. Sagittal and coronal r eformats were then constructed. For radiation dose reduction, the following was used: automated exp osure control, adjustment of mA and/or kV according to patient size. COMPARISON: None. FINDINGS: Image quality: Suboptimal due to patient positioning. Bones: No fractures or dislocations. Visualized superior ribs are intact. Mild to moderate multilev el degenerative disc disease and diffuse facet arthrosis. Soft tissues: Prevertebral soft tissues are normal in thickness. No paravertebral hematomas. No ap ical pneumothoraces. IMPRESSION: No acute, displaced fracture or traumatic subluxation. Reviewed by: Caleb Naqvi MD on 11/22/2023 9:06 PM PDT Approved by: Caleb Naqvi MD on 11/22/2023 9:06 PM PDT Station ID: [id number]
[2023-11-22 22:53] VITALS: BP 159/74; O2SAT 98
== END 2023-11-22 22:49 | disposition home or self-care (01) ==
LOC: EDSEX → EDUNIT# → ED 16:54
DX: S32.019A Unspecified fracture of first lumbar vertebra, initial encounter for closed fracture (principal); S32.029A Unspecified fracture of second lumbar vertebra, initial encounter for closed fracture; S32.039A Unspecified fracture of third lumbar vertebra, initial encounter for closed fracture; S32.049A Unspecified fracture of fourth lumbar vertebra, initial encounter for closed fracture; S22.060A Wedge compression fracture of T7-T8 vertebra, initial encounter for closed fracture; W01.0XXA Fall on same level from slipping, tripping and stumbling without subsequent striking against object, initial encounter; Y93.89 Activity, other specified; Y92.008 Other place in unspecified non-institutional (private) residence as the place of occurrence of the external cause; I48.91 Unspecified atrial fibrillation; Z79.01 Long term (current) use of anticoagulants; R42 Dizziness and giddiness; R11.0 Nausea; R61 Generalized hyperhidrosis
CPT/HCPCS: 36415; 80053; 85025; 85610; 93005; 96374; 99284

== ENCOUNTER 2024-03-09 11:49 | Inpatient (IN) ==
--- NOTE | 2024-03-09 13:38 | ED Physician Documentation ---
History of Present Illness Stated complaint Stated Complaint: BILAT LEG SWELLING, REDNESS, PX Chief complaint Chief Complaint: Ext Problem History obtained from History obtained from: Patient and Family History of Present Illness Timing: Prior to arrival Additonal information Additional information: Patient is an 88-year-old female brought in by her friend for worsening leg swelling and pain. Patient is on warfarin for history of atrial fibrillation as well as digoxin and torsemide. Patient is currently on her second course of antibiotics. She believes this is Keflex. She was seen here on the for unilateral right leg swelling ultrasound was negative and she was discharged home with cellulitis. Patient notes that is now spreading to her left leg with significant swelling. She suspects possibly a 10 pound weight gain. She denies any orthopnea associate with her symptoms. She has been compliant with her medications but has not seen any increase. No fevers chills associated with her symptoms. No nausea vomiting numbness or tingling. She has been wrapping her right leg but not her left leg at this time she does not have dressings for her legs. Meds/Allgy Home Medications Ambulatory Orders Medication Instructions Recorded Confirmed warfarin 5 mg tablet (Jantoven) 5 mg PO DAILY 01/13/18 03/09/24 losartan 100 mg tablet (Cozaar) 100 mg PO DAILY 05/27/21 03/09/24 carvedilol 25 mg tablet (Coreg) 25 mg PO BID 06/11/22 03/09/24 torsemide 20 mg tablet 40 mg PO BID 11/22/23 03/09/24 cephalexin 500 mg capsule 500 mg PO TID 7 days #21 caps 02/19/24 03/09/24 digoxin 125 mcg (0.125 mg) tablet 0.125 mg PO DAILY 03/09/24 03/09/24 doxycycline hyclate 100 mg capsule 100 mg PO BID 03/09/24 03/09/24 latanoprost 0.005 % eye drops 1 drp ophthalmic (eye) QPM 03/09/24 03/09/24 spironolactone 25 mg tablet 25 mg PO Q OTHER DAY 03/09/24 03/09/24 Allergies Allergies Allergy/AdvReac Type Severity Reaction Status Date / Time No Known Drug Allergies Allergy Unverified 02/19/24 12:14 [facility] Social History Social History Smoking Status: Never smoker Do you dip or chew tobacco?: No Relationship: Level: Independent Home Mobility Equipment: Cane Do you feel safe in your home environment?: Yes Suffered physical, verbal, emotional, or financial abuse?: No History of Abuse: No POLST Patient has POLST: No Exam Constitutional normal general appearance HENMT normocephalic and head/scalp atraumatic Eyes PERRL and EOMs intact bilaterally Chest inspection of chest normal Respiratory breath sounds equal bilaterally and normal respiratory effort Cardiovascular Systolic murmur on auscultation with no gallop irregular rhythm noted Genitourinary no CVA tenderness Extremities normal to inspection Psychiatry mental status grossly normal and oriented x3 Skin skin color normal Mild redness and warmth to lower legs. No significant lesions no signs of trauma no weeping from wounds. Results Vitals Vitals: Vital Signs - 24 hr 03/09/24 11:55 03/09/24 13:00 03/09/24 15:00 Temperature 37 C Temperature Source Temporal Artery Scan Pulse Rate 69 72 Respiratory Rate 16 16 16 Blood Pressure 99/45 L 117/54 L 110/58 L O2 Saturation 98 96 O2 Source Room air Room air Room air Pain Intensity 1 2 Oxygen O2 Source Room air Labs Labs: Laboratory Tests 03/09/24 13:34 WBC 6.8 RBC 2.93 L Hgb 9.4 L Hct 30.3 L MCV 103.4 H MCH 32.1 H MCHC 31.0 L RDW 14.3 Plt Count 187 MPV 8.9 Neut # (Auto) 4.0 Lymph # (Auto) 2.2 [place] # (Auto) 0.5 Eos # (Auto) 0.0 Baso # (Auto) 0.0 Absolute Nucleated RBC 0.00 Nucleated RBC % 0.0 PT 30.4 H INR 3.0 H Sodium 137 Potassium 4.0 Chloride 95 L Carbon Dioxide 36 H Anion Gap 6.0 BUN 76 H Creatinine 1.7 H Estimated GFR (MDRD) 28 L Glucose 93 Calcium 9.5 Total Bilirubin 0.7 AST 16 ALT 11 Alkaline Phosphatase 39 L Total Creatine Kinase 179 B-Natriuretic Peptide 402 H Total Protein 6.1 L Albumin 3.1 L Globulin 3.0 Albumin/Globulin Ratio 1.0 PD Medical Decision Making ED course ED course: Patient is an 88-year-old female presenting to the emergency department with bilateral leg swelling she was notably having worsening leg swelling on her right leg here about 2 weeks ago this appears to have progressed. She denies any significant orthopnea but has had 10 pound weight gain. She has significant 3+ pitting edema on exam soft blood pressures here in the ED but no tachycardia and no signs of hypoxia. Labs here in the emergency department show no significant leukocytosis she does appear to be anemic which appears to be slowly progressively worsening for over multiple months no acute changes in hemoglobin. CKD stage IV with worsening kidney function compared to labs obtained on 02/18. However does not meet CUBA status. BNP in the 300s chest x-ray shows no significant fluid overload but there is significant cardiomegaly. Discussed case with hospitalist Dr. Jamal Kessler Patient excepted per hospitalist for CHF exasperation and lower leg swelling. Patient would prefer to go home but was agreeable to admission at this time. Discharge Plan Discharge Patient Disposition: [facility] DC/Xfer Condition: Good Clinical Impression: CHF exacerbation Interventions: ED Admission Assessment Last Done: 03/09/24 16:05
[2024-03-09 13:44] LABS: BASOPHILS % (AUTO) 0.4 %; EOSINOPHILS % (AUTO) 0.6 %; HCT - HEMATOCRIT 30.3 % (37.0-47.0); HGB - HEMOGLOBIN 9.4 g/dL (12.0-16.0); LYMPHOCYTES # (AUTO) 2.2 10^3/uL (1.5-3.5); LYMPHOCYTES % (AUTO) 32.3 %; MEAN CORPUSCULAR HEMOGLOBIN 32.1 pg (27.0-31.0); MEAN CORPUSCULAR VOLUME 103.4 fL (81.0-99.0); MEAN PLATELET VOLUME 8.9 fL (7.9-10.8); MONOCYTES # (AUTO) 0.5 10^3/uL (0.0-1.0); MONOCYTES % (AUTO) 6.8 %; NEUTROPHILS % (AUTO) 59.3 %; PLT - PLATELET COUNT 187 10^3/uL (130-450); RED BLOOD COUNT 2.93 10^6/uL (4.20-5.40); RED CELL DISTRIBUTION WIDTH 14.3 % (12.0-15.0); WHITE BLOOD COUNT 6.8 x10^3/uL (4.8-10.8)
[2024-03-09 14:03] LABS: ALBUMIN 3.1 g/dL (3.2-5.5); BILIRUBIN,TOTAL 0.7 mg/dL (0.2-1.0); CALCIUM 9.5 mg/dL (8.5-10.3); CREATININE 1.7 mg/dL (0.6-1.3); TOTAL PROTEIN 6.1 g/dL (6.4-8.9)
--- NOTE | 2024-03-09 14:14 | XRAY Report ---
PROCEDURE: XR Chest 2V INDICATIONS: concern for chf exacerbation TECHNIQUE: 2 views of the chest were acquired. COMPARISON: CT angiogram of chest dated 01/10/2018. FINDINGS: Surgical changes and devices: Median sternotomy wires and prosthetic heart valve are seen. The ascen ding thoracic aortic stent graft is also noted.. Lungs and pleura: No pleural effusions or pneumothorax. There is hyperinflation. No focal infiltrate . Mediastinum: Mediastinal contours appear normal. Heart size is enlarged. Bones and chest wall: No suspicious bony lesions. Overlying soft tissues appear unremarkable. IMPRESSION: COPD and cardiomegaly. No acute cardiopulmonary pathology. Reviewed by: Jonh Chapin MD on 03/09/2024 2:12 PM PST Approved by: Jonh Chapin MD on 03/09/2024 2:12 PM PST Station ID: [id number]
[2024-03-09 14:20] LABS: PT - PROTHROMBIN TIME 30.4 secs (9.9-12.6)
[2024-03-09] MEDS ORDERED: ACETAMINOPHEN 325 MG TABLET PO PRN (15:25)
--- NOTE | 2024-03-09 15:59 | HISTORY & PHYSICAL EXAMINATION ---
Chief Complaint Chief Complaint Chief Complaint: Leg edema, Cellulitis History of Present Illness History of Present Illness HPI Comment/Other: This is a 88-year-old femalewith a past medical hx of atrial fibrillation, rate controlled, on coumadin, chronic bilateral lymph edema, recent multiple vertebral process fracture and cellulitis who presented to ER with a complaint of increased bilateral lower extremity swelling and redness on her left lower extremity. Patient states that she had about a 10 pound weight gain which she contributes to the increased swelling of her left lower extremities. She also mentions that she had been on oral medication of her cellulitis on the left. Patient denies shortness of breath, nausea or vomiting. She states she is still walking with her cane around her house. She states that she is keeping her legs elevated when laying down. Patient states that she is compliant with her medication. She sees a import clerk in [place] for her atrial fibrillation. At times patient is confused, she is a poor historian. 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 UPon review of her chart she was seen by an oncologist in November 2023. Labs indicate slightly elevated BNP of 400, slightly elevated creatinine. On examination patient has 2+ lower extremity pitting edema. Chest x-ray indicates cardiomegaly, no acute cardiopulmonary pathology Patient is DNR Meds/Allgy Home Medications Ambulatory Orders Medication Instructions Recorded Confirmed warfarin 5 mg tablet (Jantoven) 5 mg PO DAILY 01/13/18 03/09/24 losartan 100 mg tablet (Cozaar) 100 mg PO DAILY 05/27/21 03/09/24 carvedilol 25 mg tablet (Coreg) 25 mg PO BID 06/11/22 03/09/24 torsemide 20 mg tablet 40 mg PO BID 11/22/23 03/09/24 cephalexin 500 mg capsule 500 mg PO TID 7 days #21 caps 02/19/24 03/09/24 digoxin 125 mcg (0.125 mg) tablet 0.125 mg PO DAILY 03/09/24 03/09/24 doxycycline hyclate 100 mg capsule 100 mg PO BID 03/09/24 03/09/24 latanoprost 0.005 % eye drops 1 drp ophthalmic (eye) QPM 03/09/24 03/09/24 spironolactone 25 mg tablet 25 mg PO Q OTHER DAY 03/09/24 03/09/24 Allergies Allergies Allergy/AdvReac Type Severity Reaction Status Date / Time No Known Drug Allergies Allergy Unverified 02/19/24 12:14 [facility] Social History Social History Smoking Status: Never smoker Do you dip or chew tobacco?: No Relationship: Do you feel safe in your home environment?: Yes Suffered physical, verbal, emotional, or financial abuse?: No History of Abuse: No POLST Patient has POLST: No Review of Systems Status of ROS: 10 or more systems reviewed and unremarkable except as noted in history and below Exam Constitutional normal general appearance and no apparent distress HENMT normocephalic Eyes PERRL and EOMs intact bilaterally Neck/C-Spine visual inspection normal and trachea midline Lymph Chronic lymphedema noted on bilateral lower extremities Chest inspection of chest normal Respiratory breath sounds equal bilaterally and normal respiratory effort Cardiovascular Atrial fibrillation, Heart rate controlled Gastrointestinal abdomen normal to inspection and abdomen soft to palpation Extremities full ROM 2+ pitting edema bilaterally of the lower extremities, redness of left calf 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 Failed on outpatient p.o. antibiotics. Start clindamycin IV.. (2) Lymphedema: Plan: Patient has chronic bilateral lymphedema. However, Per patient that has Worsened over the last few weeks. Patient States that she has a 10 pound weight gain. On examination patient has a 2+ pitting edema. Patient is on P.o. torsemide At home Elevate patient's legs while laying down. Start albumin Q6 and IV Lasix 40 mg Q8 Monitor urine output. And daily weights (3) Atrial fibrillation: Plan: Heart rate is well-controlled with carvedilol, patient on warfarin. Continue warfarin dosed by pharmacy, continue patient carvedilol. Monitor heart rate. (4) CHF (congestive heart failure), NYHA class I: Plan: Patient has a slightly elevated BNP of 400. She sees a import clerk in [place]. On chest x-ray. Cardiomegaly. Start Lasix, obtain echo. (5) CUBA (acute kidney injury): Plan: Most likely secondary to acute lymphatic congestions based on her worsening of her chronic lymp edema Monitor urine output, avoid nephrotoxic drugs. Start patient on p.o. potassium due to her high dose of Lasix during this hospital stay (6) Hypercoagulability due to atrial fibrillation: Plan: Patient is on 5 mg of warfarin for atrial fibrillation. On admission patient's INR was 3.0. Pharmacy to dose warfarin. Lab Results Lab results reviewed: Yes 03/09/24 13:34 03/09/24 13:34 Diagnostic Imaging Results Diagnostic Imaging Results: positive Final report reviewed EKG Results EKG Interpreted Independently: Yes
--- NOTE | 2024-03-09 16:15 | PHARMACY PROGRESS NOTE ---
Best Possible Medication History Admit Date and Time: 03/09/24 1524 Home Medications Medication Instructions Recorded Confirmed Type warfarin 5 mg tablet (Jantoven) 5 mg PO DAILY 01/13/18 03/09/24 History losartan 100 mg tablet (Cozaar) 100 mg PO DAILY 05/27/21 03/09/24 History carvedilol 25 mg tablet (Coreg) 25 mg PO BID 06/11/22 03/09/24 History torsemide 20 mg tablet 40 mg PO BID 11/22/23 03/09/24 History cephalexin 500 mg capsule 500 mg PO TID 7 days #21 caps 02/19/24 03/09/24 Rx digoxin 125 mcg (0.125 mg) tablet 0.125 mg PO DAILY 03/09/24 03/09/24 History doxycycline hyclate 100 mg capsule 100 mg PO BID 03/09/24 03/09/24 History latanoprost 0.005 % eye drops 1 drp ophthalmic (eye) QPM 03/09/24 03/09/24 History spironolactone 25 mg tablet 25 mg PO Q OTHER DAY 03/09/24 03/09/24 History Processed by: Pharmacy Medications reviewed in ED?: Yes Medication History completed: Yes Patient Interview: Completed Secondary Source(s): Physician records (Called patient's primary care facility for warfarin dosing. last INR check was in December of 2023 and patient was to follow up in 2 weeks per their records. no follow up documented. at the time warfarin dosin.5mg fridays, 5mg all other days) and Insurance records [facility] Statement: As the person ultimately responsible for medication therapy, providers are able to order a medication from an existing home medication list in [facility] via the "Reconcile Routine" prior to Confirmation of that medication by client application support specialist. Such practice is discouraged except when the physician, in their clinical judgment, deems that a medical need exists for a medication without regard to previous use.
[2024-03-09] MEDS: SODIUM CHLORIDE FLUSH 0.9% 10 ML SYRINGE IVP SCH (16:36)
[2024-03-09] MEDS: CLINDAMYCIN 600 MG/50 ML 50 ML IV SCH (16:36)
[2024-03-09] MEDS: SODIUM CHLORIDE FLUSH 0.9% 10 ML SYRINGE IVP PRN (17:03)
[2024-03-09] MEDS: ALBUMIN 25% 12.5 GM/50 ML VIAL IV SCH ×2 (17:03→23:35)
[2024-03-09] MEDS: FUROSEMIDE 40 MG/4 ML VIAL IVP SCH (18:05)
[2024-03-09] MEDS: LATANOPROST 0.005% OPHTH DROPS EACHEYE SCH (21:58)
[2024-03-10 05:50] LABS: BASOPHILS % (AUTO) 0.5 %; EOSINOPHILS # (AUTO) 0.1 10^3/uL (0.0-0.7); EOSINOPHILS % (AUTO) 1.2 %; HCT - HEMATOCRIT 24.5 % (37.0-47.0); HGB - HEMOGLOBIN 7.8 g/dL (12.0-16.0); LYMPHOCYTES # (AUTO) 2.1 10^3/uL (1.5-3.5); LYMPHOCYTES % (AUTO) 36.7 %; MEAN CORPUSCULAR HGB CONC 31.8 g/dL (32.0-36.0); MEAN CORPUSCULAR VOLUME 100.4 fL (81.0-99.0); MONOCYTES # (AUTO) 0.4 10^3/uL (0.0-1.0); MONOCYTES % (AUTO) 6.9 %; NEUTROPHILS # (AUTO) 3.1 10^3/uL (1.5-6.6); NEUTROPHILS % (AUTO) 54.2 %; PLT - PLATELET COUNT 150 10^3/uL (130-450); RED BLOOD COUNT 2.44 10^6/uL (4.20-5.40); RED CELL DISTRIBUTION WIDTH 14.1 % (12.0-15.0); WHITE BLOOD COUNT 5.8 x10^3/uL (4.8-10.8)
[2024-03-10 06:02] LABS: INR 2.8 (0.8-1.2); PT - PROTHROMBIN TIME 28.6 secs (9.9-12.6)
[2024-03-10 06:07] LABS: CALCIUM 8.9 mg/dL (8.5-10.3); CREATININE 1.5 mg/dL (0.6-1.3); POTASSIUM 3.6 mmol/L (3.5-4.5)
[2024-03-10] MEDS: carvediloL 12.5 MG TABLET PO SCH (08:19)
[2024-03-10] MEDS: DIGOXIN 125 MCG TABLET PO SCH (08:19)
--- NOTE | 2024-03-10 12:47 | PROVIDER PROGRESS NOTE ---
Subjective Subjective Subjective: Patient 88-year-old female with history of atrial fibrillation on Coumadin, chronic bilateral lower extremity lymphedema who presents with bilateral lower extremity swelling, as well as redness of her left lower extremity. Today, she is feeling much better. She states her pain in her legs has improved. She states that the redness that was present is also gone. She states she has been urinating a lot. She has no fevers, chills. She lives with her partner at home. She ambulates with a walker. Current Medications Current Medications Current Medications: Current Medications Generic Name Dose Route Start Last Admin Trade Name Freq PRN Reason Stop Dose Admin Acetaminophen 650 mg 03/09/24 15:25 Acetaminophen 325 Mg Tablet PO Q4HR PRN Pain 1 to 4, or Fever Carvedilol 25 mg 03/10/24 09:00 03/10/24 08:19 Carvedilol 12.5 Mg Tablet PO 25 mg DAILY TORIBIO Administration Digoxin 125 mcg 03/10/24 09:00 03/10/24 08:19 Digoxin 125 Mcg Tablet PO 125 mcg DAILY TORIBIO Administration Furosemide 40 mg 03/10/24 14:00 Furosemide 40 Mg/4 Ml Vial IVP 03/11/24 06:01 BIDDIURETIC TORIBIO Clindamycin Phosphate 50 mls @ 100 mls/hr 03/09/24 16:00 03/10/24 06:17 Cleocin 600 Mg/50 Ml IV Infused Q8HR TORIBIO Infusion Latanoprost 1 drops 03/09/24 21:00 03/09/24 21:58 Latanoprost 0.005% Ophth Drops EACHEYE 1 drops QPM TORIBIO Administration Sodium Chloride 10 ml 03/09/24 15:25 03/09/24 18:05 Sodium Chloride Flush 0.9% 10 Ml Syringe IVP 10 ml PRN PRN Administration NEEDED PER PROVIDER ORDERS Sodium Chloride 10 ml 03/09/24 17:00 03/09/24 23:36 Sodium Chloride Flush 0.9% 10 Ml Syringe IVP 10 ml 0100,0900,1700 TORIBIO Administration Objective Vital Signs/Intake & Output Reviewed Vital Signs: Yes Vital Signs: Vital Signs x48h Temp Pulse Pulse Resp BP Pulse Ox 03/10/24 08:00 98.1 F 83 16 122/57 L 94 03/10/24 06:00 97.9 F 70 16 112/51 L 93 Intake & Output: Intake & Output 03/08/24 03/09/24 03/10/24 03/11/24 05:59 05:59 05:59 05:59 Intake Total 640 / 640 460 / 460 Output Total 1200 / 1200 2100 / 2100 Balance -560 / -560 -1640 / -1640 Weight (kg) 59 kg Objective General Appearance: positive No acute distress and Alert; negative Anxious Eyes Bilateral: positive Normal inspection, PERRL and EOMI ENT: positive ENT inspection nml, Pharynx nml and No signs of dehydration Neck: positive Nml inspection, Thyroid nml and No JVD Respiratory: positive Chest non-tender, No respiratory distress and Breath sounds nml; negative Wheezes, Rales or Rhonchi Cardiovascular: positive Regular rate & rhythm, No murmur and No gallop; negative Systolic murmur Abdomen: positive Non-tender, No organomegaly, Nml bowel sounds and No distention; negative Guarding, Hepatomegaly or Splenomegaly Back: positive Nml inspection; negative CVA tenderness (R) or CVA tenderness (L) Skin: positive Warm, Dry and Skin rash (Bilateral lower extremity erythema, L>R; tender to touch) Extremities: positive Non-tender and Full ROM Neurologic/Psychiatric: positive Oriented x3, Motor nml and Mood/affect nml Lab Results 03/10/24 05:25 03/10/24 05:25 Other Labs: Lab Results x24hrs 03/10/24 03/09/24 Range/Units 05:25 13:34 WBC 5.8 6.8 (4.8-10.8) x10^3/uL RBC 2.44 L 2.93 L (4.20-5.40) 10^6/uL Hgb 7.8 L 9.4 L (12.0-16.0) g/dL Hct 24.5 L 30.3 L (37.0-47.0) % MCV 100.4 H 103.4 H (81.0-99.0) fL MCH 32.0 H 32.1 H (27.0-31.0) pg MCHC 31.8 L 31.0 L (32.0-36.0) g/dL RDW 14.1 14.3 (12.0-15.0) % Plt Count 150 187 (130-450) 10^3/uL MPV 9.0 8.9 (7.9-10.8) fL Neut # (Auto) 3.1 4.0 (1.5-6.6) 10^3/uL Lymph # (Auto) 2.1 2.2 (1.5-3.5) 10^3/uL [place] # (Auto) 0.4 0.5 (0.0-1.0) 10^3/uL Eos # (Auto) 0.1 0.0 (0.0-0.7) 10^3/uL Baso # (Auto) 0.0 0.0 (0.0-0.1) 10^3/uL Absolute Nucleated RBC 0.00 0.00 x10^3/uL Nucleated RBC % 0.0 0.0 /100WBC PT 28.6 H 30.4 H (9.9-12.6) secs INR 2.8 H 3.0 H (0.8-1.2) Sodium 137 137 (135-145) mmol/L Potassium 3.6 4.0 (3.5-4.5) mmol/L Chloride 96 L 95 L (101-111) mmol/L Carbon Dioxide 35 H 36 H (21-32) mmol/L Anion Gap 6.0 6.0 (6-13) BUN 74 H 76 H (6-20) mg/dL Creatinine 1.5 H 1.7 H (0.6-1.3) mg/dL Estimated GFR (MDRD) 33 L 28 L (>89) Glucose 90 93 (74-104) mg/dL Calcium 8.9 9.5 (8.5-10.3) mg/dL Total Bilirubin 0.7 (0.2-1.0) mg/dL AST 16 (10-42) IU/L ALT 11 (10-60) IU/L Alkaline Phosphatase 39 L (42-121) IU/L Total Creatine Kinase 179 (30-223) IU/L B-Natriuretic Peptide 402 H (5-100) pg/mL Total Protein 6.1 L (6.4-8.9) g/dL Albumin 3.1 L (3.2-5.5) g/dL Globulin 3.0 (2.1-4.2) g/dL Albumin/Globulin Ratio 1.0 (1.0-2.2) Diagnostic Imaging Diagnostic Imaging Results: positive Final report reviewed Assessment/Plan Problem List (1) Cellulitis: Impression: Patient was on outpatient antibiotics; medication history shows prescription for cephalexin 500 mg 3 times daily, prescribed on 02/18. Apparently, this did not help with her redness and swelling of her left lower extremity. Continue clindamycin inpatient. Will require one more day of IV antibiotics then will discharge home on orals. Qualifiers: Laterality: left Site of cellulitis: extremity Site of cellulitis of extremity: lower extremity Qualified Code(s): L03.116 - Cellulitis of left lower limb (2) Lymphedema: Impression: Patient with 10 pound weight gain despite using oral Lasix at home. Continue IV diuresis. She put out 3.3 L yesterday. Continue IV Lasix 40 mg twice daily. Yesterday, she received this every 8 hours with albumin. Albumin stopped today. (3) Atrial fibrillation: Impression: Continue patient's home Coreg, digoxin. Continue Coumadin. Pharmacy consult for management. Qualifiers: Atrial fibrillation type: unspecified chronic Qualified Code(s): I48.20 - Chronic atrial fibrillation, unspecified (4) CHF (congestive heart failure), NYHA class I: Impression: Continue Lasix. Echo ordered, pending. Qualifiers: Congestive heart failure chronicity: acute on chronic Congestive heart failure type: combined Qualified Code(s): I50.43 - Acute on chronic combined systolic (congestive) and diastolic (congestive) heart failure (5) CUBA (acute kidney injury): Impression: Patient's baseline around 1.1-1.3. Creatinine 1.5 today. Continue IV Lasix, continue to monitor. (6) Hypercoagulability due to atrial fibrillation: Impression: Continue Coumadin dosing by pharmacy. Qualifiers: Atrial fibrillation type: unspecified chronic Qualified Code(s): D68.69 - Other thrombophilia; I48.20 - Chronic atrial fibrillation, unspecified
[2024-03-10] MEDS: FUROSEMIDE 40 MG/4 ML VIAL IVP SCH (14:04)
--- NOTE | 2024-03-10 15:03 | PT Plan of Care ---
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 Admitted with BLE cellulitis and edema. Pt lives in [place] with partner "Yessenia" and reports she is indep at baseline, occasional cane use and climbs full flight of stairs daily. Has walker at home if needed. Upon PT eval, pt is hypotensive but not orthostatic. Denies significant symptoms aside from fatigue. Transfers with CGA and amb w/ FWW and CGA x20' to bathroom. Gait with reduced toe clearance and meir, otherwise fairly normal gait pattern. Pt will benefit from skilled PT in acute setting to improve activity tolerance and increased ambulation distance. When medically clear, PT rec dc home with HHPT/OT and increased assistance from Yessenia. PATIENT/FAMILY GOALS Patient/Family Goals: "Be relieved of the dizziness and neck pain." GOALS Improve sit to stand to:: Independent Improve sit to supine to:: Independent Improve gait ability to:: Ind Advance Assistive Device to:: Front Wheeled Walker Increase distance walked to (in feet):: 100 PLAN Frequency: 1-2x/day Duration: Until goals are met DISCHARGE RECOMMENDATIONS Discharge Location: Previous Living Situation Support/Services Needed: Home Health P.T. DC Equipment Recommended: Front wheeled walker Other Discharge Equipment: has FWW at home Transport Needs at Discharge: Personal vehicle
[2024-03-11 06:15] LABS: BASOPHILS % (AUTO) 0.5 %; EOSINOPHILS # (AUTO) 0.1 10^3/uL (0.0-0.7); EOSINOPHILS % (AUTO) 1.7 %; HCT - HEMATOCRIT 25.8 % (37.0-47.0); HGB - HEMOGLOBIN 8.1 g/dL (12.0-16.0); LYMPHOCYTES # (AUTO) 2.3 10^3/uL (1.5-3.5); MEAN CORPUSCULAR HEMOGLOBIN 32.1 pg (27.0-31.0); MEAN CORPUSCULAR HGB CONC 31.4 g/dL (32.0-36.0); MEAN CORPUSCULAR VOLUME 102.4 fL (81.0-99.0); MONOCYTES # (AUTO) 0.5 10^3/uL (0.0-1.0); MONOCYTES % (AUTO) 7.9 %; NEUTROPHILS # (AUTO) 3.1 10^3/uL (1.5-6.6); NEUTROPHILS % (AUTO) 51.2 %; PLT - PLATELET COUNT 159 10^3/uL (130-450); RED BLOOD COUNT 2.52 10^6/uL (4.20-5.40); RED CELL DISTRIBUTION WIDTH 14.5 % (12.0-15.0); WHITE BLOOD COUNT 6.1 x10^3/uL (4.8-10.8)
[2024-03-11 06:29] LABS: CALCIUM 8.6 mg/dL (8.5-10.3); CREATININE 1.4 mg/dL (0.6-1.3); POTASSIUM 3.5 mmol/L (3.5-4.5)
[2024-03-11 08:18] VITALS: O2SAT 93
--- NOTE | 2024-03-11 09:11 | Discharge Summary ---
"Discharge Summary Admit Date: 03/09/24 Discharge Date: 03/11/24 Discharging Provider: Dr. Godinez Discharge Facility Name: Home with home health DIAGNOSES Admission Diagnoses: Cellulitis Lymphedema Atrial fibrillation Congestive heart failure Acute kidney injury Hypercoagulability due to atrial fibrillation Discharge Diagnoses with Status of Each Condition: Cellulitispatient was on cephalexin 500 mg 3 times a day, prescribed on 02/18. Despite this, she had increased swelling and redness of her left lower extremity. Received clindamycin while she was inpatient. Ultrasound was also done, and it showed no DVTs. Did show some mild nonspecific soft tissue edema. She received 3 days of clindamycin, will send her home with 4 more days of amoxicillin and doxycycline. Chronic lymphedemashe initially received Lasix 3 times daily with albumin. This was switched to IV Lasix twice daily. Decrease in swelling of bilateral lower extremities. Will send her home with 7 days of oral Lasix 40 daily. Advised to follow-up with primary care physician in the outpatient setting. Congestive heart failure, with reduced ejection fractionecho was completed, did show EF of 35 to 40%. Continue Lasix on discharge. Also continue Coreg. Advised to follow-up with her arcade technician, patient demonstrated understanding. Atrial fibrillationcontinue patient's home digoxin and Coumadin. Acute kidney injuryimproved with IV diuresis. Continue oral Lasix. Hypercoagulability due to atrial fibrillationcontinue Coumadin dosing, follow- up outpatient for close monitoring. HPI History of Present Illness: Per Dr. Wagner: This is a 88-year-old femalewith a past medical hx of atrial fibrillation, rate controlled, on coumadin, chronic bilateral lymph edema, recent multiple vertebral process fracture and cellulitis who presented to ER with a complaint of increased bilateral lower extremity swelling and redness on her left lower extremity. Patient states that she had about a 10 pound weight gain which she contributes to the increased swelling of her left lower extremities. She also mentions that she had been on oral medication of her cellulitis on the left. Patient denies shortness of breath, nausea or vomiting. She states she is still walking with her cane around her house. She states that she is keeping her legs elevated when laying down. Patient states that she is compliant with her medication. She sees a arcade technician in [place] for her atrial fibrillation. At times patient is confused, she is a poor historian. 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 UPon review of her chart she was seen by an oncologist in November 2023. Labs indicate slightly elevated BNP of 400, slightly elevated creatinine. On examination patient has 2+ lower extremity pitting edema. Chest x-ray indicates cardiomegaly, no acute cardiopulmonary pathology Patient is DNR CONSULTS | PROCEDURES Consultations: Physical therapy, Occupational Therapy, social work Procedures: Echocardiogram, chest x-ray HOSPITAL COURSE Hospital Course: Patient is a 88-year-old female with a history of congestive heart failure with now reduced ejection fraction of 35 to 40%, chronic lymphedema who presented with lower extremity swelling and redness, left greater than right. Ultrasound was reviewed on admission, which was done in 03/01, and it showed no DVTs. Patient has been compliant with her warfarin, which she takes for atrial fibrillation. She was given a prescription for cephalexin in the outpatient setting, and despite that, she still had some redness in her left lower extremity. As such, she was started on IV clindamycin when admitted here. She was also started on IV Lasix for her increased swelling. Her lower extremity swelling decreased, as well as her redness. She was transitioned to oral Lasix. On discharge, she will complete 4 more days of oral antibiotics to complete a 7-day course. While she was here, physical therapy and Occupational Therapy also saw her, and they recommended home physical therapy. As such, she was deemed stable for discharge home. ALLERGIES Allergies Allergy/AdvReac Type Severity Reaction Status Date / Time No Known Drug Allergies Allergy Unverified 02/19/24 12:14 MEDICATIONS Ambulatory Orders Medication Instructions Recorded Confirmed warfarin 5 mg tablet (Jantoven) 5 mg PO DAILY 01/13/18 03/09/24 losartan 100 mg tablet (Cozaar) 100 mg PO DAILY 05/27/21 03/09/24 carvedilol 25 mg tablet (Coreg) 25 mg PO BID 06/11/22 03/09/24 torsemide 20 mg tablet 40 mg PO BID 11/22/23 03/09/24 digoxin 125 mcg (0.125 mg) tablet 0.125 mg PO DAILY 03/09/24 03/09/24 latanoprost 0.005 % eye drops 1 drp ophthalmic (eye) QPM 12/02/24 12/02/24 spironolactone 25 mg tablet 25 mg PO Q OTHER DAY 03/09/24 03/09/24 amoxicillin 875 mg tablet 875 mg PO BID 4 days #8 tabs 03/11/24 doxycycline hyclate 100 mg capsule 100 mg PO BID 4 days #8 caps 03/11/24 PHYSICAL EXAM AT DISCHARGE General Appearance: positive No acute distress and Alert; negative Anxious Eyes Bilateral: positive Normal inspection, PERRL and EOMI ENT: positive ENT inspection nml, Pharynx nml and No signs of dehydration Neck: positive Nml inspection, Thyroid nml and No JVD Respiratory: positive Chest non-tender, No respiratory distress and Breath sounds nml; negative Wheezes, Rales or Rhonchi Cardiovascular: positive No murmur, No gallop and Irregularly irregular; negative Tachycardia or Diastolic murmur Peripheral Pulses: positive 2+ Abdomen: positive Non-tender, No organomegaly and No distention; negative Guarding, Hepatomegaly or Splenomegaly Back: positive Nml inspection; negative CVA tenderness (R) or CVA tenderness (L) Skin: positive Color nml and Skin rash (decreased erythema of bilateral lower extremities ) Extremities: positive Non-tender, Full ROM and Pedal edema (minimal, trace, improving) Neurologic/Psychiatric: positive Oriented x3 and Mood/affect nml; negative Facial droop or Slurred/abnml speech LABS 03/11/24 05:54 03/11/24 05:54 DIAGNOSTIC IMAGING Diagnostic Imaging Results: Final report reviewed QUALITY (Female Hip Fx Only) Was patient sent home on osteoporosis medication?: No FOLLOW UP Follow Up: Follow up with primary care physician - see if need for more Lasix. TIME SPENT Time Spent in Discharge (Minutes): 30 Discharge Plan Discharge Patient Disposition: 06 Home Health Service Condition: Good Prescriptions: New amoxicillin 875 mg tablet 875 mg PO BID 4 Days Qty: 8 0RF doxycycline hyclate 100 mg capsule 100 mg PO BID 4 Days Qty: 8 0RF Continued warfarin [Jantoven] 5 MG tablet 5 mg PO DAILY Rx Instructions: 2.5mg fridays, 5mg all other days, last INR check in December of 2023 per her primary care facility carvedilol [Coreg] 25 MG tablet 25 mg PO BID torsemide 20 MG tablet 40 mg PO BID Patient Comments: TAKE 1 TABLET BY MOUTH ONCE DAILY (DIURETIC) Rx Instructions: for 15 days starting 02/25 latanoprost 0.005 % drops 1 drp ophthalmic (eye) QPM Patient Comments: INSTILL 1 DROP INTO EACH EYE IN THE EVENING spironolactone 25 mg tablet 25 mg PO Q OTHER DAY Patient Comments: TAKE 1 TABLET BY MOUTH EVERY OTHER DAY. PLEASE COMPLETE THE LABS THAT YOUR PROVIDER HAS ORDERED. digoxin 125 mcg (0.125 mg) tablet 0.125 mg PO DAILY Patient Comments: TAKE 1 TABLET BY MOUTH ONCE DAILY (PLEASE HAVE LABS DONE. THANK YOU!) Held losartan [Cozaar] 100 MG tablet 100 mg PO DAILY Hold Instructions: Resume on 03/18/24. Please hold until you see your PCP and they recheck your kidney levels, and give you the clear to start it again. Discontinued cephalexin 500 mg capsule 500 mg PO TID 7 Days Qty: 21 0RF doxycycline hyclate 100 mg capsule 100 mg PO BID Patient Comments: take 1 capsule by mouth twice a day for 10 days Activity Restrictions: Activity as Tolerated Diet: Cardiac Health Concerns: You came in because you noticed that your legs, especially her left leg was swollen and red. You did see your primary care doctor and were given oral antibiotics. Despite taking these, he still had some redness in that area. We started you on IV antibiotics which he responded well to. Additionally, we gave you a water pill through your IV to get rid of some excessive fluid that builds up due to your chronic lymphedema and your chronic heart failure. Your legs look a lot less swollen now, and you have lost a lot of your water weight since being here. When you get home, please restart your spironolactone and torsemide as prescribed. Additionally, he will need 4 more days of oral antibiotics, which I have sent to your [facility] pharmacy. It is important that you follow-up with your primary care physician as soon as they can fit you in, so they can recheck your INR and make sure it is within the therapeutic range, and so they can recheck your kidney levels, and let you know when it is okay for you to restart your losartan. Continue to elevate your legs when able. Make sure you complete your antibiotic course, even if your legs continue to look better. We are glad you are feeling better, thank you for allowing us to take care of you. Print Language: Chinese Patient Instructions: Cellulitis Dc, Diuretics Dc Follow-up Care: Marlen Prescott ARNP [Primary Care Provider] -"
[2024-03-11] MEDS: WARFARIN 5 MG TABLET PO ONE (10:16)
[2024-03-11] MEDS: FUROSEMIDE 40 MG TABLET PO SCH (10:16)
== END 2024-03-11 12:30 | disposition home health service (06) | DRG 602 ==
LOC: MS2 11:49 → ED 11:49 → MS2 16:00 → SUATTDRO 03-10 10:40
PROVIDERS: ADMIT Internal Medicine; ATTEND Internal Medicine
DX: D68.59 Other primary thrombophilia; I50.9 Heart failure, unspecified; Z79.01 Long term (current) use of anticoagulants; R63.5 Abnormal weight gain; I89.0 Lymphedema, not elsewhere classified; N17.9 Acute kidney failure, unspecified; I48.91 Unspecified atrial fibrillation; I48.20 Chronic atrial fibrillation, unspecified; I50.43 Acute on chronic combined systolic (congestive) and diastolic (congestive) heart failure; L03.116 Cellulitis of left lower limb; Z66 Do not resuscitate

== ENCOUNTER 2024-05-03 02:41 | Inpatient (IN) ==
--- NOTE | 2024-05-03 03:24 | ED Physician Documentation ---
History of Present Illness Stated complaint Stated Complaint: BILAT LEG SWELLING Chief complaint Chief Complaint: Cardiac History obtained from History obtained from: Patient and EMS History of Present Illness Timing: Other (2 months) Additonal information Additional information: Erin Del Rio is an 88-year-old female with lower extremity edema and congestive heart failure that presents to the emergency department today with marked swelling of both lower extremities that has not improved on her current doses of torsemide and spironolactone. She was admitted into the hospital 6 weeks ago with cellulitis and lower extremity edema and she was diuresed with oral and IV Lasix. She is currently taking torsemide, spironolactone, warfarin and carvedilol. Today she was having a hard time getting up off of the commode and fell against her partner. She is elected come to the hospital for evaluation and treatment. Gantt Coma Scale Assess Eye opening: Spontaneous Verbal response: Oriented Motor response: Obeys Commands Total score: 15 Review of Systems The patient denies any fever chills cough or shortness of breath. She does have swelling of her lower extremities and weakness. She has been taken off of her Coumadin 2 days ago. Meds/Allgy Home Medications Ambulatory Orders Medication Instructions Recorded Confirmed carvedilol 25 mg tablet (Coreg) 25 mg PO BID 06/11/22 05/03/24 torsemide 20 mg tablet 40 mg PO BID 11/22/23 05/03/24 digoxin 125 mcg (0.125 mg) tablet 0.125 mg PO DAILY 03/09/24 05/03/24 latanoprost 0.005 % eye drops 1 drp ophthalmic (eye) QPM 03/09/24 05/03/24 spironolactone 25 mg tablet 25 mg PO Q OTHER DAY 03/09/24 05/03/24 calcium carbonate 600 mg PO DAILY 05/03/24 05/03/24 dorzolamide 2 % eye drops 1 drp ophthalmic (eye) BID 05/03/24 05/03/24 multivitamin 1 tab PO DAILY 05/03/24 05/03/24 potassium chloride 10 mEq 10 meq PO DAILY 05/03/24 05/03/24 capsule,extended release Allergies Allergies Allergy/AdvReac Type Severity Reaction Status Date / Time No Known Drug Allergies Allergy Verified 05/03/24 03:21 [facility] Social History Social History Smoking Status: Never smoker Do you dip or chew tobacco?: No Relationship: Level: Independent Home Mobility Equipment: Cane Do you feel safe in your home environment?: Yes Suffered physical, verbal, emotional, or financial abuse?: No History of Abuse: No POLST Patient has POLST: No Exam Exam Pleasant 88-year-old female sitting supine in a gurney without distress blood pressure is 143/67 pulse is 82 respirations 18 and O2 saturation 97%. She does not appear to be struggling for breath. Constitutional normal general appearance and no apparent distress HENMT normocephalic and head/scalp atraumatic Eyes PERRL and EOMs intact bilaterally Respiratory breath sounds equal bilaterally, normal respiratory effort and auscultation abnormal (fine crackles in the right base ) Cardiovascular normal heart rate noted, rhythm abnormal (irregular) and no murmur Gastrointestinal abdomen normal to inspection, abdomen soft to palpation and nontender to palpation Extremities There is swelling to both lower extremities from the toes up to the hip. The swelling is pitting. 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 designer II-XII intact Psychiatry mental status grossly normal, oriented x3, thought process normal, cooperative, affect normal, psychomotor activity normal and memory normal Results Vitals Vitals: Vital Signs - 24 hr 05/03/24 02:51 05/03/24 03:03 05/03/24 04:00 Temperature 36.5 C Temperature Source Temporal Artery Scan Pulse Rate 93 82 Respiratory Rate 18 18 Blood Pressure 143/67 H 143/67 H O2 Saturation 94 97 O2 Source Room air Room air Room air Pain Intensity 0 4 4 05/03/24 04:26 05/03/24 06:51 05/03/24 08:29 Temperature 36.8 C Temperature Source Temporal Artery Scan Pulse Rate 85 85 77 Respiratory Rate 16 24 26 H Blood Pressure 150/85 H 144/54 H 144/54 H O2 Saturation 96 96 96 O2 Source Room air Room air Room air Pain Intensity 0 0 0 Oxygen O2 Source Room air Labs Labs: Laboratory Tests 05/03/24 05/03/24 05/03/24 03:20 04:50 05:03 WBC 10.1 RBC 2.83 L Hgb 9.4 L Hct 29.6 L MCV 104.6 H MCH 33.2 H MCHC 31.8 L RDW 15.6 H Plt Count 119 L MPV 10.3 Neut # (Auto) 7.8 H Lymph # (Auto) 2.1 Wilcox # (Auto) 0.2 Eos # (Auto) 0.0 Baso # (Auto) 0.0 Absolute Nucleated RBC 0.00 Nucleated RBC % 0.0 PT 79.6 H INR 8.4 H* Sodium 134 L Potassium 4.5 Chloride 97 L Carbon Dioxide 30 Anion Gap 7.0 BUN 62 H Creatinine 1.8 H Estimated GFR (MDRD) 27 L Glucose 118 H Calcium 8.8 Magnesium 2.2 Total Bilirubin 0.7 AST 52 H ALT 31 Alkaline Phosphatase 61 Troponin I High Sens 37.8 H* B-Natriuretic Peptide 541 H Total Protein 6.3 L Albumin 3.5 Globulin 2.8 Albumin/Globulin Ratio 1.3 Lipase 45 Urine Color YELLOW Urine Clarity CLEAR Urine pH 6.0 Ur Specific [place] 1.010 Urine Protein NEGATIVE Urine Glucose (UA) NEGATIVE Urine Ketones NEGATIVE Urine Occult Blood NEGATIVE Urine Nitrite NEGATIVE Urine Bilirubin NEGATIVE Urine Urobilinogen 0.2 (NORMAL) Ur Leukocyte Esterase NEGATIVE Ur Microscopic Review NOT INDICATED Urine Culture Comments NOT INDICATED Rads (name of study) chest: Relevant Findings:: Prelim report reviewed (Impression: Mild hazy left basilar atelectasis/infiltrate.) and EMP independent interpretation of test (Large heart aortic graft sternotomy wires does not look like failure possible infiltrate in left base) Procedures IVC sono (time) 0330: Bedside IVC sono: IVC measures (cm) (duplicated IVC each measures 1.73cm and are plethoric), High CVP and Fluid overload PD Medical Decision Making ED course Complexity details: reviewed old records, reviewed results, re-evaluated patient, considered differential and d/w patient Reviewed Lab Results: We reviewed a complete blood count showing a normal white blood cell count of 10.1 thousand hemoglobin and hematocrit were depressed at 9.4 and 29.6 similar to what the patient has had for the past 6 months. Platelets were low at 119,000 she has had platelets low previously in November. Her INR is markedly elevated at 8.4 and she has prior visits with INR under 3. Chemistries show a mildly depressed sodium at 134 BUN is elevated at 62 similar to what she has had previously creatinine elevated at 1.8 similar to prior AST mildly elevated at 52 remainder of the liver functions are normal high-sensitivity troponin mildly elevated at 37.8 and a BNP elevated at 541. These laboratory values are concerning for chronic illness kidney function is poor but has been poor for some time. Her markedly elevated INR is concerning especially when she tells me that she stopped taking this medicine 2 days ago at the insistence of her doctor. She does have a partner who helps her with her medications. She is uncertain why her INR is still high. ED course: 88-year-old female presents to the emergency department with massive swelling of both lower extremities. She has had previous similar presentation with less swelling and with erythema. At that time she was treated for cellulitis and diuresed with intravenous Lasix. She required hospitalization for 2 to 3 days. She is presenting today without evidence of cellulitis and without acute dyspnea. We are initially treating her aggressively with 100 mg of Lasix intravenously. She does have some diuresis associated with this but will likely need further diuresis with excessive fluid present. She feels improved. 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 At shift change beds are not available and there I believe the patient will need inpatient diuresis potentially for an extended period of time. At shift change her care is turned over to Dr. Ciro Calderón anticipating a bed becoming available. Discharge Plan Discharge Patient Disposition: 66 [facility] DC/Xfer Clinical Impression: Edema due to congestive heart failure, Pulmonary infiltrate in left lung on chest x-ray CHF (congestive heart failure) Qualifiers: Heart failure type: unspecified Heart failure chronicity: acute on chronic Qualified Code(s): I50.9 - Heart failure, unspecified Prescriptions: No Action carvedilol [Coreg] 25 MG tablet 25 mg PO BID torsemide 20 MG tablet 40 mg PO BID Patient Comments: TAKE 1 TABLET BY MOUTH ONCE DAILY (DIURETIC) Rx Instructions: for 15 days starting 02/25 latanoprost 0.005 % drops 1 drp ophthalmic (eye) QPM Patient Comments: INSTILL 1 DROP INTO EACH EYE IN THE EVENING spironolactone 25 mg tablet 25 mg PO Q OTHER DAY Patient Comments: TAKE 1 TABLET BY MOUTH EVERY OTHER DAY. PLEASE COMPLETE THE LABS THAT YOUR PROVIDER HAS ORDERED. digoxin 125 mcg (0.125 mg) tablet 0.125 mg PO DAILY Patient Comments: TAKE 1 TABLET BY MOUTH ONCE DAILY (PLEASE HAVE LABS DONE. THANK YOU!) calcium carbonate 600 mg calcium (1,500 mg) tablet 600 mg PO DAILY multivitamin Tablet 1 tab PO DAILY dorzolamide 2 % drops 1 drp ophthalmic (eye) BID Patient Comments: Instill into L eye potassium chloride 10 mEq capsule, extended release 10 meq PO DAILY Print Language: Kyrgyz Stand Alone Forms: PCP List
[2024-05-03 03:36] LABS: BASOPHILS % (AUTO) 0.1 %; HCT - HEMATOCRIT 29.6 % (37.0-47.0); HGB - HEMOGLOBIN 9.4 g/dL (12.0-16.0); LYMPHOCYTES # (AUTO) 2.1 10^3/uL (1.5-3.5); LYMPHOCYTES % (AUTO) 20.6 %; MEAN CORPUSCULAR HEMOGLOBIN 33.2 pg (27.0-31.0); MEAN CORPUSCULAR HGB CONC 31.8 g/dL (32.0-36.0); MEAN CORPUSCULAR VOLUME 104.6 fL (81.0-99.0); MEAN PLATELET VOLUME 10.3 fL (7.9-10.8); MONOCYTES # (AUTO) 0.2 10^3/uL (0.0-1.0); MONOCYTES % (AUTO) 1.5 %; NEUTROPHILS # (AUTO) 7.8 10^3/uL (1.5-6.6); NEUTROPHILS % (AUTO) 77.4 %; PLT - PLATELET COUNT 119 10^3/uL (130-450); RED BLOOD COUNT 2.83 10^6/uL (4.20-5.40); RED CELL DISTRIBUTION WIDTH 15.6 % (12.0-15.0); WHITE BLOOD COUNT 10.1 x10^3/uL (4.8-10.8)
[2024-05-03 03:51] LABS: MAGNESIUM 2.2 mg/dL (1.7-2.3)
[2024-05-03] MEDS: FUROSEMIDE 100 MG/10 ML VIAL IVP STA ×2 (03:52→09:39)
[2024-05-03 03:58] LABS: ALBUMIN 3.5 g/dL (3.2-5.5); ALBUMIN/GLOBULIN RATIO 1.3 (1.0-2.2); BILIRUBIN,TOTAL 0.7 mg/dL (0.2-1.0); CALCIUM 8.8 mg/dL (8.5-10.3); CREATININE 1.8 mg/dL (0.6-1.3); POTASSIUM 4.5 mmol/L (3.5-4.5); TOTAL PROTEIN 6.3 g/dL (6.4-8.9)
[2024-05-03 05:02] LABS: PT - PROTHROMBIN TIME 79.6 secs (9.9-12.6)
[2024-05-03 05:10] LABS: INR 8.4 (0.8-1.2)
[2024-05-03 05:16] LABS: BILIRUBIN,URINE NEGATIVE (NEGATIVE); GLUCOSE, URINE (UA) NEGATIVE (NEGATIVE); KETONES,URINE (UA) NEGATIVE (NEGATIVE); LEUKOCYTE ESTERASE, URINE NEGATIVE (NEGATIVE); NITRITE,URINE NEGATIVE (NEGATIVE); OCCULT BLOOD,URINE NEGATIVE (NEGATIVE); PROTEIN,URINE NEGATIVE (NEGATIVE); UROBILINOGEN,URINE 0.2 (NORMAL) E.U./dL (NORMAL)
[2024-05-03 05:17] LABS: CLARITY,URINE CLEAR (CLEAR)
[2024-05-03 09:51] LABS: MAGNESIUM 2.1 mg/dL (1.7-2.3)
[2024-05-03 09:56] LABS: CALCIUM 8.4 mg/dL (8.5-10.3); CREATININE 1.7 mg/dL (0.6-1.3); POTASSIUM 3.8 mmol/L (3.5-4.5)
--- NOTE | 2024-05-03 11:52 | XRAY Report ---
PROCEDURE: XR Chest 1V INDICATIONS: soa TECHNIQUE: One view of the chest was acquired. COMPARISON: 03/09/2024 FINDINGS: The patient is rotated to the right for this study. Surgical changes and devices: Sternotomy changes are noted. There is a descending thoracic aortic st ent seen. Lungs and pleura: An incomplete inspiratory result is noted, with low lung volumes and crowding of t he vascular markings. Minimal poorly defined opacity can be seen at the left lung base. No large pneu mothorax or large pleural effusion can be seen. Mediastinum: Mediastinal contours appear normal. Heart size is normal. Bones and chest wall: No suspicious bony lesions. Age-appropriate degenerative changes are seen. Overlying soft tissues appear unremarkable. IMPRESSION: Minimal opacity can be seen at the left lung base. Please consider mild atelectasis vers us infiltrate. Low lung volumes noted. Note: No significant discrepancy from the preliminary report. Reviewed by: Quinn Fisher MD on 05/03/2024 10:50 AM [facility] Approved by: Quinn Fisher MD on 05/03/2024 10:50 AM [facility] Station ID: [id number]
--- NOTE | 2024-05-03 14:44 | HISTORY & PHYSICAL EXAMINATION ---
Chief Complaint Chief Complaint Chief Complaint: Bilateral lower extremity edema History of Present Illness History of Present Illness HPI Comment/Other: This is a 88-year-old femalewith a past medical hx of atrial fibrillation, rate controlled, on coumadin, chronic bilateral lymph edema, recent multiple vertebral process fracture and cellulitis who presented to ER with a complaint of increased bilateral lower extremity swelling. Patient states that she had some weight gain which she contributes to the increased swelling of both of her lower extremities. Patient denies shortness of breath, nausea or vomiting. She states she is still walking with her cane around her house. She states that she is keeping her legs elevated when laying down. Patient states that she is compliant with her medication. She sees a steel finisher in [place] for her atrial fibrillation. She sees an oncologist for her CLL. Last visit per chart review she was seen by an oncologist in November 2023. Labs indicate slightly elevated BNP of 547, slightly elevated creatinine 1.7, baseline around 1.5, INR is highly elevated at 8.4 Last Echo in 03/31 indicates HFrEF of 35-40% On examination patient has 2+ lower extremity pitting edema. Chest x-ray indicates cardiomegaly, no acute cardiopulmonary pathology Patient is DNR Meds/Allgy Home Medications Ambulatory Orders Medication Instructions Recorded Confirmed carvedilol 25 mg tablet (Coreg) 25 mg PO BID 06/11/22 05/03/24 torsemide 20 mg tablet 40 mg PO BID 11/22/23 05/03/24 digoxin 125 mcg (0.125 mg) tablet 0.125 mg PO DAILY 03/09/24 05/03/24 latanoprost 0.005 % eye drops 1 drp ophthalmic (eye) QPM 03/09/24 05/03/24 spironolactone 25 mg tablet 25 mg PO Q OTHER DAY 03/09/24 05/03/24 calcium carbonate 600 mg PO DAILY 05/03/24 05/03/24 dorzolamide 2 % eye drops 1 drp ophthalmic (eye) BID 05/03/24 05/03/24 multivitamin 1 tab PO DAILY 05/03/24 05/03/24 potassium chloride 10 mEq 10 meq PO DAILY 05/03/24 05/03/24 capsule,extended release Allergies Allergies Allergy/AdvReac Type Severity Reaction Status Date / Time No Known Drug Allergies Allergy Verified 05/03/24 03:21 [facility] Social History Social History Smoking Status: Never smoker Do you dip or chew tobacco?: No Relationship: Level: Independent Home Mobility Equipment: Cane Do you feel safe in your home environment?: Yes Suffered physical, verbal, emotional, or financial abuse?: No History of Abuse: No POLST Patient has POLST: No Review of Systems Status of ROS: 10 or more systems reviewed and unremarkable except as noted in history and below Exam Constitutional normal general appearance and no apparent distress HENMT normocephalic and head/scalp atraumatic Eyes PERRL and EOMs intact bilaterally Neck/C-Spine visual inspection normal and trachea midline Chest inspection of chest normal and palpation of chest normal Respiratory breath sounds equal bilaterally and normal respiratory effort Cardiovascular Atrial fibrillation, rate controlled Gastrointestinal abdomen normal to inspection and abdomen soft to palpation Extremities normal to inspection 2+ edema bilaterally Neurology staff writer II-XII intact and no focal motor deficit noted Skin skin color normal and no rash Conclusion/Plan Problem List (1) Edema due to congestive heart failure: Plan: Patient has a long history of CHF with reduced EF of 35%. Start patient on Bumex 5 mg twice daily Monitor urine output Strict I's and O's Continue spironolactone (2) Supratherapeutic INR: Plan: Patient is on warfarin for atrial chronic atrial fibrillation today with INR at 8.4. No sign of active bleeding. Hold warfarin, Continue to monitor. (3) Chronic atrial fibrillation: Plan: Continue home medication for rate controlDiltiazem and digoxin. Lab Results 05/03/24 03:20 05/03/24 09:31 Diagnostic Imaging Results Diagnostic Imaging Results: positive Final report reviewed
[2024-05-03] MEDS ORDERED: SPIRONOLACTONE 25 MG TABLET PO SCH (15:00)
--- NOTE | 2024-05-03 15:24 | ED Physician Documentation ---
ED Addendum Addendum Addendum: The patient continued to be comfortable here in the emergency department. Subsequently hospital bed did become available after inpatient discharges. The patient has diuresed approximately 1800 mL of fluid and had been absorbed by pure wick. She is having good saturation and nonlabored breathing. Her feet are still quite edematous and so appear that they would be uncomfortable with walking. I talked with the hospitalist who would come and see the patient here in the ER for evaluation. Diagnosis: 1. Progressive dyspnea 2. Fluid overload/CHF 3. Use severe edema Disposition: The patient is placed in the hospital on the hospitalist team, OBS. Discharge Plan Discharge Patient Disposition: 66 [facility] DC/Xfer Clinical Impression: Edema due to congestive heart failure, Pulmonary infiltrate in left lung on chest x-ray CHF (congestive heart failure) Qualifiers: Heart failure type: unspecified Heart failure chronicity: acute on chronic Qualified Code(s): I50.9 - Heart failure, unspecified
[2024-05-03] MEDS ORDERED: SODIUM CHLORIDE FLUSH 0.9% 10 ML SYRINGE IVP PRN (15:26)
[2024-05-03] MEDS ORDERED: ACETAMINOPHEN 325 MG TABLET PO PRN (15:26)
[2024-05-03] MEDS ORDERED: ONDANSETRON 4 MG/2 ML VIAL IVP PRN (15:26)
--- NOTE | 2024-05-03 15:52 | PHARMACY PROGRESS NOTE ---
Best Possible Medication History Admit Date and Time: 05/03/24 [id number] Home Medications Medication Instructions Recorded Confirmed Type carvedilol 25 mg tablet (Coreg) 25 mg PO BID 06/11/22 05/03/24 History torsemide 20 mg tablet 40 mg PO BID 11/22/23 05/03/24 History digoxin 125 mcg (0.125 mg) tablet 0.125 mg PO DAILY 03/09/24 05/03/24 History latanoprost 0.005 % eye drops 1 drp ophthalmic (eye) QPM 03/09/24 05/03/24 History spironolactone 25 mg tablet 25 mg PO Q OTHER DAY 03/09/24 05/03/24 History calcium carbonate 600 mg PO DAILY 05/03/24 05/03/24 History dorzolamide 2 % eye drops 1 drp ophthalmic (eye) BID 05/03/24 05/03/24 History multivitamin 1 tab PO DAILY 05/03/24 05/03/24 History Processed by: Pharmacy Medications reviewed in ED?: No Medication History completed: Yes Patient Interview: Completed Secondary Source(s): Insurance records [facility] Statement: Pt interview with [facility] insurance records reviewed. As the person ultimately responsible for medication therapy, providers are able to order a medication from an existing home medication list in [facility] via the "Reconcile Routine" prior to Confirmation of that medication by customer support representative. Such practice is discouraged except when the physician, in their clinical judgment, deems that a medical need exists for a medication without regard to previous use.
[2024-05-03] MEDS: SODIUM CHLORIDE FLUSH 0.9% 10 ML SYRINGE IVP SCH (17:44)
[2024-05-03] MEDS: HEPARIN 5,000 UNIT/ML VIAL SUBQ SCH (21:53)
[2024-05-03] MEDS: LATANOPROST 0.005% OPHTH DROPS EACHEYE SCH (21:56)
[2024-05-03] MEDS: BUMETANIDE 1 MG/4 ML VIAL IVP SCH (21:58)
[2024-05-03] MEDS: carvediloL 12.5 MG TABLET PO SCH (22:03)
[2024-05-03] MEDS: DORZOLAMIDE 2% OPHTH DROPS EACHEYE SCH (23:08)
[2024-05-04 06:21] LABS: BASOPHILS % (AUTO) 0.1 %; EOSINOPHILS % (AUTO) 0.2 %; HCT - HEMATOCRIT 25.1 % (37.0-47.0); HGB - HEMOGLOBIN 8.1 g/dL (12.0-16.0); LYMPHOCYTES # (AUTO) 1.8 10^3/uL (1.5-3.5); LYMPHOCYTES % (AUTO) 21.9 %; MEAN CORPUSCULAR HEMOGLOBIN 33.3 pg (27.0-31.0); MEAN CORPUSCULAR HGB CONC 32.3 g/dL (32.0-36.0); MEAN CORPUSCULAR VOLUME 103.3 fL (81.0-99.0); MONOCYTES # (AUTO) 0.4 10^3/uL (0.0-1.0); MONOCYTES % (AUTO) 5.1 %; NEUTROPHILS # (AUTO) 5.9 10^3/uL (1.5-6.6); NEUTROPHILS % (AUTO) 72.3 %; PLT - PLATELET COUNT 96 10^3/uL (130-450); RED BLOOD COUNT 2.43 10^6/uL (4.20-5.40); RED CELL DISTRIBUTION WIDTH 15.6 % (12.0-15.0); WHITE BLOOD COUNT 8.2 x10^3/uL (4.8-10.8)
[2024-05-04 06:36] LABS: CALCIUM 7.8 mg/dL (8.5-10.3); CREATININE 1.5 mg/dL (0.6-1.3); POTASSIUM 3.4 mmol/L (3.5-4.5)
[2024-05-04 08:31] LABS: PT - PROTHROMBIN TIME 63.9 secs (9.9-12.6)
[2024-05-04 08:41] LABS: INR 6.7 (0.8-1.2)
[2024-05-04] MEDS: POTASSIUM CHLORIDE 10 MEQ CAPSULE PO SCH (10:17)
[2024-05-04] MEDS: CALCIUM CARBONATE CHEW 500 MG TABLET PO SCH (10:17)
[2024-05-04] MEDS: MULTIVITAMIN W/MINERALS TABLET PO SCH (10:17)
[2024-05-04] MEDS: DIGOXIN 125 MCG TABLET PO SCH (10:18)
--- NOTE | 2024-05-04 12:18 | PROVIDER PROGRESS NOTE ---
Subjective Prog Note Date Prog Note Date: 05/04/24 Prog Note Time: 12:10 Subjective Subjective: This is a 88-year-old femalewith a past medical hx of atrial fibrillation, rate controlled, on coumadin, chronic bilateral lymph edema, recent multiple vertebral process fracture and cellulitis who presented to ER with a complaint of increased bilateral lower extremity swelling. Patient states that she had some weight gain which she contributes to the increased swelling of both of her lower extremities. Patient denies shortness of breath, nausea or vomiting. She states she is still walking with her cane around her house. She states that she is keeping her legs elevated when laying down. Patient states that she is compliant with her medication. She sees a skull grinder in [place] for her atrial fibrillation. She sees an oncologist for her CLL. Last visit per chart review she was seen by an oncologist in November 2023. Labs indicate slightly elevated BNP of 547, slightly elevated creatinine 1.7, baseline around 1.5, INR is highly elevated at 8.4 Last Echo in 03/31 indicates HFrEF of 35-40% On examination patient has 2+ lower extremity pitting edema. Chest x-ray indicates cardiomegaly, no acute cardiopulmonary pathology Patient is DNR 05/04/2024: Patient feels that her Lower extremity edema has greatly improved. Patient with no complaints. Current Medications Current Medications Current Medications: Current Medications Generic Name Dose Route Start Last Admin Trade Name Freq PRN Reason Stop Dose Admin Acetaminophen 650 mg 05/03/24 15:26 Acetaminophen 325 Mg Tablet PO Q4HR PRN Pain 1 to 4, or Fever Bumetanide 1 mg 05/03/24 21:00 05/04/24 10:17 Bumetanide 1 Mg/4 Ml Vial IVP 1 mg BID TORIBIO Administration Calcium Carbonate/Glycine 500 mg 05/04/24 09:00 05/04/24 10:17 Calcium Carbonate Chew 500 Mg Tablet PO 500 mg DAILY TORIBIO Administration Carvedilol 25 mg 05/03/24 21:00 05/04/24 10:18 Carvedilol 12.5 Mg Tablet PO 25 mg BID TORIBIO Administration Digoxin 125 mcg 05/04/24 09:00 05/04/24 10:18 Digoxin 125 Mcg Tablet PO 125 mcg DAILY TORIBIO Administration Dorzolamide HCl 1 drops 05/03/24 21:00 05/04/24 10:17 Dorzolamide 2% Ophth Drops EACHEYE 1 drops BID TORIBIO Administration Latanoprost 1 drops 05/03/24 21:00 05/03/24 21:56 Latanoprost 0.005% Ophth Drops EACHEYE 1 applic QPM TORIBIO Administration Multivitamins/Minerals 1 tab 05/04/24 08:00 05/04/24 10:17 Multivitamin W/Minerals Tablet PO 1 tab DAILYWM TORIBIO Administration Ondansetron HCl 4 mg 05/03/24 15:26 Ondansetron 4 Mg/2 Ml Vial IVP Q6HR PRN Nausea / Vomiting Potassium Chloride 10 meq 05/04/24 09:00 05/04/24 10:17 Potassium Chloride 10 Meq Capsule PO 10 meq DAILY TORIBIO Administration Sodium Chloride 10 ml 05/03/24 15:26 Sodium Chloride Flush 0.9% 10 Ml Syringe IVP PRN PRN NEEDED PER PROVIDER ORDERS Sodium Chloride 10 ml 05/03/24 17:00 05/04/24 10:17 Sodium Chloride Flush 0.9% 10 Ml Syringe IVP 10 ml 0100,0900,1700 TORIBIO Administration Spironolactone 25 mg 05/03/24 15:00 Spironolactone 25 Mg Tablet PO Q OTHER DAY [facility] Objective Vital Signs/Intake & Output Reviewed Vital Signs: Yes Vital Signs: Vital Signs x48h Temp Pulse Resp BP Pulse Ox 05/04/24 12:01 36.5 C 61 18 104/40 L 97 05/04/24 07:35 36.9 C 73 18 107/55 L 94 05/04/24 04:44 36.8 C 85 18 115/55 L 94 Intake & Output: Intake & Output 05/01/24 05/02/24 05/03/24 05/04/24 23:59 23:59 23:59 23:59 Intake Total 720 / 720 720 / 720 Output Total 850 / 850 150 / 150 Balance -130 / -130 570 / 570 Weight (kg) 68 kg Objective General Appearance: positive No acute distress and Alert Eyes Bilateral: positive Normal inspection and PERRL ENT: positive ENT inspection nml and Pharynx nml Neck: positive Nml inspection and Trachea midline Respiratory: positive Chest non-tender and No respiratory distress Cardiovascular: positive Other (Chronic A-fib on anticoagulation) Abdomen: positive Non-tender and No organomegaly Skin: positive Color nml and No rash Extremities: positive Non-tender and Full ROM Neurologic/Psychiatric: positive Oriented x3 and CN's nml (2-12) Lab Results 05/04/24 05:31 05/04/24 05:31 Other Labs: Lab Results x24hrs 05/04/24 05/04/24 Range/Units 08:08 05:31 WBC 8.2 (4.8-10.8) x10^3/uL RBC 2.43 L (4.20-5.40) 10^6/uL Hgb 8.1 L (12.0-16.0) g/dL Hct 25.1 L (37.0-47.0) % MCV 103.3 H (81.0-99.0) fL MCH 33.3 H (27.0-31.0) pg MCHC 32.3 (32.0-36.0) g/dL RDW 15.6 H (12.0-15.0) % Plt Count 96 L (130-450) 10^3/uL MPV 10.0 (7.9-10.8) fL Neut # (Auto) 5.9 (1.5-6.6) 10^3/uL Lymph # (Auto) 1.8 (1.5-3.5) 10^3/uL [place] # (Auto) 0.4 (0.0-1.0) 10^3/uL Eos # (Auto) 0.0 (0.0-0.7) 10^3/uL Baso # (Auto) 0.0 (0.0-0.1) 10^3/uL Absolute Nucleated RBC 0.00 x10^3/uL Nucleated RBC % 0.0 /100WBC PT 63.9 H (9.9-12.6) secs INR 6.7 H* (0.8-1.2) Sodium 135 (135-145) mmol/L Potassium 3.4 L (3.5-4.5) mmol/L Chloride 99 L (101-111) mmol/L Carbon Dioxide 30 (21-32) mmol/L Anion Gap 6.0 (6-13) BUN 56 H (6-20) mg/dL Creatinine 1.5 H (0.6-1.3) mg/dL Estimated GFR (MDRD) 33 L (>89) Glucose 99 (74-104) mg/dL Calcium 7.8 L (8.5-10.3) mg/dL Troponin I High Sens 46.9 H* (2.3-14.8) ng/L Assessment/Plan Problem List (1) Edema due to congestive heart failure: Impression: Bilateral lower extremity edema has greatly improved. Continue Bumex IV 5 mg twice a day for 1 more day Then changed back to oral medication torsemide. (2) Supratherapeutic INR: Impression: Patient takes warfarin for due to your strong atrial fibrillation. On admission her INR was 8.4 today at 6.4. Pulmonary discussion with patient is not clear how often we will check her INR. Patient would be ideal candidate for a DOAC Should be evaluated by her PCP upon discharge. (3) Chronic atrial fibrillation: Impression: Atrial fibrillation, on anticoagulation Rate controlled with carvedilol. (4) Diastolic heart failure: Impression: 80 the echocardiogram done on 1224 indicates reduced EF of 35%. Continue Spironolactone and IV Bumex. Continue Torsemide Upon discharge. (5) Elevated troponin: Impression: Most likely demand ischemia. Continue to trend
[2024-05-05 05:42] LABS: BASOPHILS % (AUTO) 0.2 %; EOSINOPHILS # (AUTO) 0.1 10^3/uL (0.0-0.7); EOSINOPHILS % (AUTO) 1.1 %; HCT - HEMATOCRIT 25.4 % (37.0-47.0); HGB - HEMOGLOBIN 8.2 g/dL (12.0-16.0); MEAN CORPUSCULAR HEMOGLOBIN 33.9 pg (27.0-31.0); MEAN CORPUSCULAR HGB CONC 32.3 g/dL (32.0-36.0); MEAN PLATELET VOLUME 9.8 fL (7.9-10.8); MONOCYTES # (AUTO) 0.4 10^3/uL (0.0-1.0); MONOCYTES % (AUTO) 6.1 %; NEUTROPHILS # (AUTO) 3.7 10^3/uL (1.5-6.6); NEUTROPHILS % (AUTO) 60.3 %; PLT - PLATELET COUNT 98 10^3/uL (130-450); RED BLOOD COUNT 2.42 10^6/uL (4.20-5.40); RED CELL DISTRIBUTION WIDTH 15.2 % (12.0-15.0); WHITE BLOOD COUNT 6.2 x10^3/uL (4.8-10.8)
[2024-05-05 06:00] LABS: CALCIUM 7.7 mg/dL (8.5-10.3); CREATININE 1.4 mg/dL (0.6-1.3); POTASSIUM 3.7 mmol/L (3.5-4.5)
[2024-05-05 08:22] LABS: PT - PROTHROMBIN TIME 44.2 secs (9.9-12.6)
[2024-05-05 08:30] LABS: INR 4.5 (0.8-1.2)
[2024-05-05] MEDS: BUMETANIDE 1 MG/4 ML VIAL IVP SCH (11:37)
--- NOTE | 2024-05-05 13:55 | PROVIDER PROGRESS NOTE ---
Subjective Subjective Subjective: Patient is doing well overall. She states she has been urinating quite a bit. She feels like her leg swelling has gotten better. She has no pain in her legs. She denies any fevers or chills. She states that she does take her torsemide at home. She is not sure if she missed any doses. She endorses a low-salt diet. She also takes her Coumadin daily. She is unsure why she is on Coumadin and not Xarelto or Eliquis. She did provide me with the name of her chief medical officer, who I have left a message with for clarification. Her INR was supratherapeutic, and she states she was just taking one a day as prescribed. She has not noticed any active bleeding or bruising. Current Medications Current Medications Current Medications: Current Medications Generic Name Dose Route Start Last Admin Trade Name Freq PRN Reason Stop Dose Admin Acetaminophen 650 mg 05/03/24 15:26 Acetaminophen 325 Mg Tablet PO Q4HR PRN Pain 1 to 4, or Fever Bumetanide 1 mg 05/05/24 12:00 05/05/24 11:37 Bumetanide 1 Mg/4 Ml Vial IVP Not Given BID TORIBIO Calcium Carbonate/Glycine 500 mg 05/04/24 09:00 05/05/24 08:22 Calcium Carbonate Chew 500 Mg Tablet PO 500 mg DAILY TORIBIO Administration Carvedilol 25 mg 05/03/24 21:00 05/05/24 08:22 Carvedilol 12.5 Mg Tablet PO 25 mg BID TORIBIO Administration Digoxin 125 mcg 05/04/24 09:00 05/05/24 08:23 Digoxin 125 Mcg Tablet PO 125 mcg DAILY TORIBIO Administration Dorzolamide HCl 1 drops 05/03/24 21:00 05/05/24 08:23 Dorzolamide 2% Ophth Drops EACHEYE 1 drops BID TORIBIO Administration Latanoprost 1 drops 05/03/24 21:00 05/04/24 20:48 Latanoprost 0.005% Ophth Drops EACHEYE 1 applic QPM TORIBIO Administration Multivitamins/Minerals 1 tab 05/04/24 08:00 05/05/24 08:23 Multivitamin W/Minerals Tablet PO 1 tab DAILYWM TORIBIO Administration Ondansetron HCl 4 mg 05/03/24 15:26 Ondansetron 4 Mg/2 Ml Vial IVP Q6HR PRN Nausea / Vomiting Potassium Chloride 10 meq 05/04/24 09:00 05/05/24 08:22 Potassium Chloride 10 Meq Capsule PO 10 meq DAILY TORIBIO Administration Sodium Chloride 10 ml 05/03/24 15:26 Sodium Chloride Flush 0.9% 10 Ml Syringe IVP PRN PRN NEEDED PER PROVIDER ORDERS Sodium Chloride 10 ml 05/03/24 17:00 05/05/24 08:23 Sodium Chloride Flush 0.9% 10 Ml Syringe IVP 10 ml 0100,0900,1700 TORIBIO Administration Spironolactone 25 mg 05/03/24 15:00 Spironolactone 25 Mg Tablet PO Q OTHER DAY TORIBIO Objective Vital Signs/Intake & Output Reviewed Vital Signs: Yes Vital Signs: Vital Signs x48h Temp Pulse Resp BP Pulse Ox 05/05/24 07:50 97.7 F 71 18 128/53 L 95 Intake & Output: Intake & Output 05/02/24 05/03/24 05/04/24 05/05/24 23:59 23:59 23:59 23:59 Intake Total 720 / 720 1550 / 1550 1200 / 1200 Output Total 850 / 850 850 / 850 850 / 850 Balance -130 / -130 700 / 700 350 / 350 Weight (kg) 68 kg Objective General Appearance: positive No acute distress and Alert Eyes Bilateral: positive Normal inspection and PERRL ENT: positive ENT inspection nml and Pharynx nml Neck: positive Nml inspection and Trachea midline Respiratory: positive Chest non-tender and No respiratory distress Cardiovascular: positive No murmur, Irregularly irregular and Other (Chronic A- fib on anticoagulation); negative Tachycardia or Bradycardia Abdomen: positive Non-tender and No organomegaly Skin: positive Color nml and No rash Extremities: positive Non-tender, Full ROM and Pedal edema (trace edema in bilateral lower extremities) Neurologic/Psychiatric: positive Oriented x3 and CN's nml (2-12) Lab Results 05/05/24 05:14 05/05/24 05:14 Other Labs: Lab Results x24hrs 05/05/24 05/05/24 Range/Units 08:12 05:14 WBC 6.2 (4.8-10.8) x10^3/uL RBC 2.42 L (4.20-5.40) 10^6/uL Hgb 8.2 L (12.0-16.0) g/dL Hct 25.4 L (37.0-47.0) % MCV 105.0 H (81.0-99.0) fL MCH 33.9 H (27.0-31.0) pg MCHC 32.3 (32.0-36.0) g/dL RDW 15.2 H (12.0-15.0) % Plt Count 98 L (130-450) 10^3/uL MPV 9.8 (7.9-10.8) fL Neut # (Auto) 3.7 (1.5-6.6) 10^3/uL Lymph # (Auto) 2.0 (1.5-3.5) 10^3/uL [place] # (Auto) 0.4 (0.0-1.0) 10^3/uL Eos # (Auto) 0.1 (0.0-0.7) 10^3/uL Baso # (Auto) 0.0 (0.0-0.1) 10^3/uL Absolute Nucleated RBC 0.00 x10^3/uL Nucleated RBC % 0.0 /100WBC PT 44.2 H (9.9-12.6) secs INR 4.5 H* (0.8-1.2) Sodium 135 (135-145) mmol/L Potassium 3.7 (3.5-4.5) mmol/L Chloride 99 L (101-111) mmol/L Carbon Dioxide 31 (21-32) mmol/L Anion Gap 5.0 L (6-13) BUN 51 H (6-20) mg/dL Creatinine 1.4 H (0.6-1.3) mg/dL Estimated GFR (MDRD) 36 L (>89) Glucose 92 (74-104) mg/dL Calcium 7.7 L (8.5-10.3) mg/dL Diagnostic Imaging Diagnostic Imaging Results: positive Final report reviewed Assessment/Plan Problem List (1) Acute exacerbation of chronic heart failure: Impression: Continue IV Bumex 1 mg twice daily for one more day. Lower extremity edema continues to improve. Will continue home torsemide, 40mg twice daily, starting tomorrow. (2) Supratherapeutic INR: Impression: Patient takes Coumadin for atrial fibrillation. INR admission was 8.4, and it has improved to 4.5 today. Will discuss with cardiology why she is on Coumadin and not a DOAC. (3) Chronic atrial fibrillation: Impression: Patient does appear rate controlled at this time, takes Coreg 25 mg twice daily. Continue this at this time. (4) Elevated troponin: Impression: Troponin elevated, likely demand ischemia in setting of acute heart failure exacerbation. Downtrending. Patient with no active chest pain. (5) CHF (congestive heart failure), NYHA class I: Impression: On last admission, ECHO was completed. It did show moderate global hypokinesis, EF of 35 to 40%. She is on Coreg, renal lactone, torsemide. Would advise starting Jardiance in the outpatient setting. Advised to follow-up with her chief medical officer as well. Qualifiers: Congestive heart failure chronicity: acute on chronic Congestive heart failure type: combined Qualified Code(s): I50.43 - Acute on chronic combined systolic (congestive) and diastolic (congestive) heart failure
[2024-05-06 00:25] VITALS: O2SAT 93
[2024-05-06 05:46] LABS: BASOPHILS % (AUTO) 0.4 %; EOSINOPHILS # (AUTO) 0.1 10^3/uL (0.0-0.7); EOSINOPHILS % (AUTO) 1.8 %; HCT - HEMATOCRIT 26.7 % (37.0-47.0); HGB - HEMOGLOBIN 8.4 g/dL (12.0-16.0); LYMPHOCYTES % (AUTO) 36.4 %; MEAN CORPUSCULAR HEMOGLOBIN 32.9 pg (27.0-31.0); MEAN CORPUSCULAR HGB CONC 31.5 g/dL (32.0-36.0); MEAN CORPUSCULAR VOLUME 104.7 fL (81.0-99.0); MEAN PLATELET VOLUME 9.4 fL (7.9-10.8); MONOCYTES # (AUTO) 0.4 10^3/uL (0.0-1.0); MONOCYTES % (AUTO) 6.6 %; NEUTROPHILS % (AUTO) 54.4 %; PLT - PLATELET COUNT 104 10^3/uL (130-450); RED BLOOD COUNT 2.55 10^6/uL (4.20-5.40); WHITE BLOOD COUNT 5.5 x10^3/uL (4.8-10.8)
[2024-05-06 06:02] LABS: CALCIUM 7.8 mg/dL (8.5-10.3); CREATININE 1.2 mg/dL (0.6-1.3); POTASSIUM 3.8 mmol/L (3.5-4.5)
[2024-05-06 07:54] LABS: INR 2.7 (0.8-1.2); PT - PROTHROMBIN TIME 27.6 secs (9.9-12.6)
[2024-05-06 08:42] VITALS: BP 137/59; TEMP 98.1
--- NOTE | 2024-05-06 09:49 | Discharge Summary ---
"Discharge Summary Admit Date: 05/03/24 Discharge Date: 05/06/24 Discharging Provider: Dr. Radha Godinez Primary Care Provider: [facility] Code Status: Do Not Attempt Resuscitation Discharge Facility Name: Home with Home Health DIAGNOSES Admission Diagnoses: Cellulitis Lymphedema Atrial fibrillation Congestive heart failure Acute kidney injury Hypercoagulability due to atrial fibrillation Discharge Diagnoses with Status of Each Condition: Acute exacerbation of chronic heart failurecompleted IV diuresis with good urine output. Legs with significantly less edema. Continue home torsemide, 40 mg twice daily, starting today. Supratherapeutic INRpatient takes Coumadin for atrial fibrillation. Her pile driver operator was spoken with at the heart clinic in [place]. They stated that she was on Coumadin just for cost reasons. I did speak with [facility], and sent over Xarelto and Eliquis, and they were coming out to about $500 per month. As such, we decided to continue the Coumadin. We will set up a PCP appointment for her in 1 week to check her INR. She usually goes there for INR checks. I advised her to take 2.5 mg every other day, a significantly lower dose than she was previously taken. She was advised to follow-up on her INR in a week, and then continue make adjustments as necessary. Her partner gets Eliquis from [email or web address], and she was advised to follow-up on this route so she did not have to get frequent INR checks anymore. I also told her partner this, and they demonstrated understanding of the above plan. Chronic atrial fibrillationcontinue Coreg, Coumadin. Elevated troponindowntrending, likely demand ischemia in setting of acute heart failure exacerbation. No active chest pain during her whole stay. Congestive heart failurepatient has ejection fraction of 35 to 40%. She is on Coreg, spironolactone, torsemide. Would advise starting Jardiance in the outpatient setting if able. Advised to follow-up with a pile driver operator in the next few weeks as well. Patient demonstrated understanding. HPI History of Present Illness: Per Dr. Wagner: This is a 88-year-old femalewith a past medical hx of atrial fibrillation, rate controlled, on coumadin, chronic bilateral lymph edema, recent multiple vertebral process fracture and cellulitis who presented to ER with a complaint of increased bilateral lower extremity swelling and redness on her left lower extremity. Patient states that she had about a 10 pound weight gain which she contributes to the increased swelling of her left lower extremities. She also mentions that she had been on oral medication of her cellulitis on the left. Patient denies shortness of breath, nausea or vomiting. She states she is still walking with her cane around her house. She states that she is keeping her legs elevated when laying down. Patient states that she is compliant with her medication. She sees a pile driver operator in [place] for her atrial fibrillation. At times patient is confused, she is a poor historian. 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 UPon review of her chart she was seen by an oncologist in November 2023. Labs indicate slightly elevated BNP of 400, slightly elevated creatinine. On examination patient has 2+ lower extremity pitting edema. Chest x-ray indicates cardiomegaly, no acute cardiopulmonary pathology Patient is DNR CONSULTS | PROCEDURES Consultations: Social work Procedures: Chest x-ray/26mild atelectasis. HOSPITAL COURSE Hospital Course: Patient is a 88-year-old female with a history of heart failure with reduced ejection fraction of 35 to 40%, chronic atrial fibrillation on Coumadin due to cost issues, who presented with bilateral lower extremity swelling. She started on IV diuresis with Bumex 1 mg twice daily. She tolerated this well. We will switch her back to her oral torsemide. She was never in respiratory distress, nor did she have any chest pain. While she was here, I did speak with her pile driver operator about switching her from Coumadin to Eliquis or Xarelto. She did have a supratherapeutic INR, and she stated that she had some difficulty with monitoring her INR in the outpatient setting. Her pile driver operator did state it was a cost issue, and it was not covered by her insurance. I spoke with [facility], the pharmacy she uses, and they confirmed that it would be about $500 per month. As such, we will keep her on Coumadin for now. Advised her to do 2.5 mg every other day. I would also advised her to check her INR next week with her primary care physician. She will make any adjustments necessary. I told the above plan to her partner, Yessenia, as well. They both demonstrated understanding. We will resume her home health. Plan is for discharge home with home health. ALLERGIES Allergies Allergy/AdvReac Type Severity Reaction Status Date / Time No Known Drug Allergies Allergy Verified 05/03/24 03:21 MEDICATIONS Ambulatory Orders Medication Instructions Recorded Confirmed carvedilol 25 mg tablet (Coreg) 25 mg PO BID 06/11/22 05/03/24 torsemide 20 mg tablet 40 mg PO BID 11/22/23 05/03/24 digoxin 125 mcg (0.125 mg) tablet 0.125 mg PO DAILY 03/09/24 05/03/24 latanoprost 0.005 % eye drops 1 drp ophthalmic (eye) QPM 03/09/24 05/03/24 spironolactone 25 mg tablet 25 mg PO Q OTHER DAY 03/09/24 05/03/24 calcium carbonate 600 mg PO DAILY 05/03/24 05/03/24 dorzolamide 2 % eye drops 1 drp ophthalmic (eye) BID 05/03/24 05/03/24 multivitamin 1 tab PO DAILY 05/03/24 05/03/24 PHYSICAL EXAM AT DISCHARGE General Appearance: positive No acute distress and Alert; negative Anxious Eyes Bilateral: positive Normal inspection, PERRL and EOMI ENT: positive ENT inspection nml, Pharynx nml and No signs of dehydration Neck: positive Nml inspection, Thyroid nml, No JVD and Trachea midline Respiratory: positive Chest non-tender, No respiratory distress and Breath sounds nml; negative Wheezes, Rales or Rhonchi Cardiovascular: positive Irregularly irregular; negative No murmur, Tachycardia or Bradycardia Peripheral Pulses: positive 2+ Abdomen: positive Non-tender; negative Tenderness, Guarding, Rebound, Hepatomegaly or Splenomegaly Back: positive Nml inspection; negative CVA tenderness (R) or CVA tenderness (L) Skin: positive Color nml, No rash, Warm and Dry Extremities: positive Non-tender and Pedal edema (minimal bilaterally) Neurologic/Psychiatric: positive Oriented x3, Motor nml and Mood/affect nml LABS 05/06/24 05:29 05/06/24 05:29 DIAGNOSTIC IMAGING Diagnostic Imaging Results: Final report reviewed QUALITY (Female Hip Fx Only) Was patient sent home on osteoporosis medication?: No FOLLOW UP Follow Up: Follow-up with primary care physician in 1 week to recheck INR. Follow-up with pile driver operator in 1 to 2 weeks. TIME SPENT Time Spent in Discharge (Minutes): 40 Discharge Plan Discharge Patient Disposition: 06 Home Health Service Condition: Fair Prescriptions: Continued carvedilol [Coreg] 25 MG tablet 25 mg PO BID torsemide 20 MG tablet 40 mg PO BID Patient Comments: TAKE 1 TABLET BY MOUTH ONCE DAILY (DIURETIC) Rx Instructions: for 15 days starting 02/25 latanoprost 0.005 % drops 1 drp ophthalmic (eye) QPM Patient Comments: INSTILL 1 DROP INTO EACH EYE IN THE EVENING spironolactone 25 mg tablet 25 mg PO Q OTHER DAY Patient Comments: TAKE 1 TABLET BY MOUTH EVERY OTHER DAY. PLEASE COMPLETE THE LABS THAT YOUR PROVIDER HAS ORDERED. digoxin 125 mcg (0.125 mg) tablet 0.125 mg PO DAILY Patient Comments: TAKE 1 TABLET BY MOUTH ONCE DAILY (PLEASE HAVE LABS DONE. THANK YOU!) calcium carbonate 600 mg calcium (1,500 mg) tablet 600 mg PO DAILY multivitamin Tablet 1 tab PO DAILY dorzolamide 2 % drops 1 drp ophthalmic (eye) BID Patient Comments: Instill into L eye Activity Restrictions: Activity as Tolerated Diet: Cardiac Health Concerns: You came in because you were having swelling in your legs. We gave you an IV water pill, which helped with the swelling. I will discharge you home back on your normal torsemide 40 mg twice a day. While you you were here, we noticed that your INR was higher than it was supposed to be. I spoke with your pile driver operator about possibly switching you from Coumadin to Xarelto or Eliquis. The pharmacist confirmed that this would be over $500 a month. As such, we will keep you on your Coumadin. I want you to do a lower dose of 2.5 mg of Coumadin (half the tablet) Saturday, Saturday, Saturday, Saturday. I want you to recheck your INR with your primary care office in about a week. We are trying to set up this appointment for you. I would also encourage you to speak with your primary care physician about other avenues to get a medication like Eliquis or Xarelto covered. It will make it much easier for you. Follow-up with your primary care doctor as well as your pile driver operator in the next few weeks. We have made an appointment for you - Keesha Salinas, 05/14 @ 1300 w/1250 check in. Print Language: Cypriot Patient Instructions: Torsemide tablets, Heart Failure Diet Changes, Heart Failure Dc Stand Alone Forms: PCP List"
== END 2024-05-06 14:10 | disposition home health service (06) | DRG 292 ==
LOC: MS2 02:41 → ED 02:41 → MS2 16:29
PROVIDERS: ADMIT Internal Medicine; ATTEND Internal Medicine
DX: R79.1 Abnormal coagulation profile; I50.43 Acute on chronic combined systolic (congestive) and diastolic (congestive) heart failure; I50.9 Heart failure, unspecified; C91.10 Chronic lymphocytic leukemia of B-cell type not having achieved remission; R91.8 Other nonspecific abnormal finding of lung field; Z66 Do not resuscitate; I24.89 Other forms of acute ischemic heart disease; Z79.01 Long term (current) use of anticoagulants; I48.20 Chronic atrial fibrillation, unspecified

== ENCOUNTER 2024-05-24 14:53 | Inpatient (IN) ==
--- NOTE | 2024-05-24 15:00 | ED Physician Documentation ---
History of Present Illness Stated complaint Stated Complaint: WEAKNESS Chief complaint Chief Complaint: Ext Problem History obtained from History obtained from: Patient History of Present Illness Timing: Prior to arrival Additonal information Additional information: Patient is a 88 yo female Presenting to the emergency department with bilateral lower leg swelling generalized weakness. Symptoms have been going on for multiple months. She notes she has been in and out of the hospital secondary to CHF symptoms. She notes she has worsening lower leg swelling. She notes generalized weakness and difficulty walking. She notes she uses torsemide but is noncompliant with it. She is also on spironolactone for history of CHF and is unsure if she has been taking this 1. She has no cough no shortness of breath no chest pain associated with her symptoms. She denies any fevers or chills. She finished antibiotics for history of cellulitis earlier in April. She was last discharged from the hospital on 129. At that time she was found to have an elevated INR secondary to her warfarin use. Patient is unsure if she has been compliant with her INR in the past. She has a history of atrial fibrillation and takes digoxin as well at home. Meds/Allgy Home Medications Ambulatory Orders Medication Instructions Recorded Confirmed carvedilol 25 mg tablet (Coreg) 25 mg PO BID 06/11/22 05/03/24 torsemide 20 mg tablet 40 mg PO BID 11/22/23 05/03/24 digoxin 125 mcg (0.125 mg) tablet 0.125 mg PO DAILY 03/09/24 05/03/24 latanoprost 0.005 % eye drops 1 drp ophthalmic (eye) QPM 03/09/24 05/03/24 spironolactone 25 mg tablet 25 mg PO Q OTHER DAY 03/09/24 05/03/24 calcium carbonate 600 mg PO DAILY 05/03/24 05/03/24 dorzolamide 2 % eye drops 1 drp ophthalmic (eye) BID 05/03/24 05/03/24 multivitamin 1 tab PO DAILY 05/03/24 05/03/24 Allergies Allergies Allergy/AdvReac Type Severity Reaction Status Date / Time No Known Drug Allergies Allergy Verified 05/24/24 15:17 [facility] Medical History Medical History (Updated 05/24/24 @ 19:11 by Veronika Newell PA-C) Lymphedema Family History Family History Other Family history of cerebrovascular accident (CVA) in father Family history of sudden cardiac in mother Social History Social History Smoking Status: Never smoker Second hand tobacco smoke exposure: No Do you dip or chew tobacco?: No Do you vape?: No Relationship: Level: Assisted Home Mobility Equipment: Walker Do you feel safe in your home environment?: Yes Suffered physical, verbal, emotional, or financial abuse?: No History of Abuse: No Substance Use: denies use POLST Patient has POLST: No Exam Constitutional normal general appearance HENMT normocephalic, head/scalp atraumatic and hearing grossly normal bilaterally Eyes PERRL, EOMs intact bilaterally and conjunctivae normal Neck/C-Spine visual inspection normal Lymph no lymphadenopathy noted Chest inspection of chest normal Respiratory breath sounds equal bilaterally, normal respiratory effort and clear to auscultation bilaterally Cardiovascular normal heart rate noted, regular rhythm noted, no gallop and no rub Genitourinary no CVA tenderness Back/Pelvis spine normal to inspection Extremities Significant bilateral lower leg swelling with 4+ pitting edema appreciated. Patient's swelling extends above her knees to bilateral anterior thighs. No significant redness warmth to touch she does have some range of motion intact. Results Vitals Vitals: Vital Signs - 24 hr 05/24/24 14:53 05/24/24 18:43 Temperature 36.7 C Temperature Source Temporal Artery Scan Pulse Rate 47 L 57 L Respiratory Rate 15 18 Blood Pressure 101/47 L 134/45 H O2 Saturation 96 95 O2 Source Room air Room air Pain Intensity 0 0 Oxygen O2 Source Room air Labs Labs: Laboratory Tests 05/24/24 05/24/24 15:09 15:38 WBC 7.9 RBC 2.83 L Hgb 9.1 L Hct 29.4 L MCV 103.9 H MCH 32.2 H MCHC 31.0 L RDW 14.9 Plt Count 171 MPV 9.4 Neut # (Auto) 5.9 Lymph # (Auto) 1.7 [place] # (Auto) 0.2 Eos # (Auto) 0.0 Baso # (Auto) 0.0 Absolute Nucleated RBC 0.00 Nucleated RBC % 0.0 PT 33.7 H INR 3.3 H Sodium 131 L Potassium 4.4 Chloride 94 L Carbon Dioxide 30 Anion Gap 7.0 BUN 70 H Creatinine 2.0 H Estimated GFR (MDRD) 24 L Glucose 126 H Calcium 8.3 L Total Bilirubin 0.8 AST 25 ALT 13 Alkaline Phosphatase 55 Troponin I High Sens 48.4 H* B-Natriuretic Peptide 450 H Total Protein 6.3 L Albumin 2.9 L Globulin 3.4 Albumin/Globulin Ratio 0.9 L PD Medical Decision Making ED course Complexity details: reviewed old records and reviewed results ED course: Patient is an 88-year-old female presenting with significant lower leg swelling. Patient has been seen at our ER multiple times she has significant history of CHF she notes she has been noncompliant with her home medications unsure if she has been taking her diuretics but does admit she has been missing some me dications. She is unsure if she is still on warfarin or not. She has bilateral leg swelling with 4+ pain edema. Patient is slightly hypoxic on arrival to 87%. Patient improved without intervention here to 96% after she rested here in the ED. CBC shows no significant leukocytosis. Mild anemia but could be secondary to fluid overload. BNP elevated in the 450s and chest x-ray consistent with a cute CHF. Patient was given a dose of Bumex here in the ED after her blood pressure stabilized. CMP consistent with significant CUBA GFR in the 20s when her baseline is closer to the 40s. Patient takes torsemide and spironolactone at home but has been noncompliant. She was given a dose of IV Bumex and I did discuss with on-call hospitalist [place] nurse practitioner who is agreeable with admission at this time. Patient will be admitted to [facility] for acute CHF exacerbation. Discharge Plan Discharge Patient Disposition: [facility] DC/Xfer Condition: Stable Clinical Impression: CHF (congestive heart failure) Qualifiers: Heart failure type: unspecified Heart failure chronicity: acute on chronic Qualified Code(s): I50.9 - Heart failure, unspecified Prescriptions: No Action carvedilol [Coreg] 25 MG tablet 25 mg PO BID torsemide 20 MG tablet 40 mg PO BID Patient Comments: TAKE 1 TABLET BY MOUTH ONCE DAILY (DIURETIC) Rx Instructions: for 15 days starting 02/25 latanoprost 0.005 % drops 1 drp ophthalmic (eye) QPM Patient Comments: INSTILL 1 DROP INTO EACH EYE IN THE EVENING spironolactone 25 mg tablet 25 mg PO Q OTHER DAY Patient Comments: TAKE 1 TABLET BY MOUTH EVERY OTHER DAY. PLEASE COMPLETE THE LABS THAT YOUR PROVIDER HAS ORDERED. digoxin 125 mcg (0.125 mg) tablet 0.125 mg PO DAILY Patient Comments: TAKE 1 TABLET BY MOUTH ONCE DAILY (PLEASE HAVE LABS DONE. THANK YOU!) calcium carbonate 600 mg calcium (1,500 mg) tablet 600 mg PO DAILY multivitamin Tablet 1 tab PO DAILY dorzolamide 2 % drops 1 drp ophthalmic (eye) BID Patient Comments: Instill into L eye Print Language: Syriac
[2024-05-24 15:25] LABS: BASOPHILS % (AUTO) 0.3 %; EOSINOPHILS % (AUTO) 0.4 %; HCT - HEMATOCRIT 29.4 % (37.0-47.0); HGB - HEMOGLOBIN 9.1 g/dL (12.0-16.0); LYMPHOCYTES # (AUTO) 1.7 10^3/uL (1.5-3.5); LYMPHOCYTES % (AUTO) 21.2 %; MEAN CORPUSCULAR HEMOGLOBIN 32.2 pg (27.0-31.0); MEAN CORPUSCULAR VOLUME 103.9 fL (81.0-99.0); MEAN PLATELET VOLUME 9.4 fL (7.9-10.8); MONOCYTES # (AUTO) 0.2 10^3/uL (0.0-1.0); MONOCYTES % (AUTO) 2.9 %; NEUTROPHILS # (AUTO) 5.9 10^3/uL (1.5-6.6); NEUTROPHILS % (AUTO) 74.8 %; PLT - PLATELET COUNT 171 10^3/uL (130-450); RED BLOOD COUNT 2.83 10^6/uL (4.20-5.40); RED CELL DISTRIBUTION WIDTH 14.9 % (12.0-15.0); WHITE BLOOD COUNT 7.9 x10^3/uL (4.8-10.8)
[2024-05-24 15:43] LABS: ALBUMIN 2.9 g/dL (3.2-5.5); ALBUMIN/GLOBULIN RATIO 0.9 (1.0-2.2); BILIRUBIN,TOTAL 0.8 mg/dL (0.2-1.0); CALCIUM 8.3 mg/dL (8.5-10.3); POTASSIUM 4.4 mmol/L (3.5-4.5); TOTAL PROTEIN 6.3 g/dL (6.4-8.9)
--- NOTE | 2024-05-24 15:47 | XRAY Report ---
PROCEDURE: XR Chest 1V INDICATIONS: chf TECHNIQUE: One view of the chest was acquired. COMPARISON: 05/03/2024, 03/09/2024 FINDINGS: Surgical changes and devices: Sternotomy changes are noted. A descending thoracic aortic stent can be seen. Lungs and pleura: The lung volumes can be seen, which limit evaluation. There is blunting of the cos tophrenic angles. Generalized interstitial prominence can be seen. No large pneumothorax. Mediastinum: Mediastinal contours appear normal. Heart size is moderately enlarged. Bones and chest wall: No suspicious bony lesions. Age-appropriate degenerative changes are seen. O verlying soft tissues appear unremarkable. IMPRESSION: Moderate cardiomegaly, with interstitial prominence and bilateral pleural effusions. These imaging fi ndings are supportive of the clinical diagnosis of CHF. Postoperative and degenerative changes are seen. Reviewed by: Quinn Fisher MD on 05/24/2024 2:45 PM [place] Approved by: Quinn Fisher MD on 05/24/2024 2:45 PM [facility] Station ID: [id number]
[2024-05-24 15:57] LABS: INR 3.3 (0.8-1.2); PT - PROTHROMBIN TIME 33.7 secs (9.9-12.6)
[2024-05-24] MEDS: BUMETANIDE 1 MG/4 ML VIAL IVP STA (19:10)
--- NOTE | 2024-05-24 19:58 | HISTORY & PHYSICAL EXAMINATION ---
Chief Complaint Chief Complaint Chief Complaint: Generalized weakness History of Present Illness History Obtained From History obtained from: Patient interview History of Present Illness HPI Comment/Other: 88-year-old female H significant for CHF on torsemide and spironolactone at home. She has been in and out of the hospital for the past several months. She has history of medication noncompliance, is unsure if she is taking her spironolactone and torsemide. She has had difficulty walking and generalized weakness secondary to fluid overload. In the ER, she was noted to have an CUBA and a new requirement of 2 L O2. Her EGFR was 42 last month, now was 24. Hospitalist was contacted for observation for CHF exacerbation with reduction in kidney function Meds/Allgy Home Medications Ambulatory Orders Medication Instructions Recorded Confirmed carvedilol 25 mg tablet (Coreg) 25 mg PO BID 06/11/22 05/03/24 torsemide 20 mg tablet 40 mg PO BID 11/22/23 05/03/24 digoxin 125 mcg (0.125 mg) tablet 0.125 mg PO DAILY 03/09/24 05/03/24 latanoprost 0.005 % eye drops 1 drp ophthalmic (eye) QPM 03/09/24 05/03/24 spironolactone 25 mg tablet 25 mg PO Q OTHER DAY 03/09/24 05/03/24 calcium carbonate 600 mg PO DAILY 05/03/24 05/03/24 dorzolamide 2 % eye drops 1 drp ophthalmic (eye) BID 05/03/24 05/03/24 multivitamin 1 tab PO DAILY 05/03/24 05/03/24 Allergies Allergies Allergy/AdvReac Type Severity Reaction Status Date / Time No Known Drug Allergies Allergy Verified 05/24/24 15:17 [facility] Medical History Medical History (Updated 05/24/24 @ 20:23 by [place] Gautam DNP) Lymphedema Family History Family History Other Family history of cerebrovascular accident (CVA) in father Family history of sudden cardiac in mother Social History Social History Smoking Status: Never smoker Second hand tobacco smoke exposure: No Do you dip or chew tobacco?: No Do you vape?: No Relationship: Level: Assisted Home Mobility Equipment: Walker Do you feel safe in your home environment?: Yes Suffered physical, verbal, emotional, or financial abuse?: No History of Abuse: No Substance Use: denies use POLST Patient has POLST: No Review of Systems Status of ROS: 10 or more systems reviewed and unremarkable except as noted in history and below Cardiovascular Reports: edema and swelling of feet/ankles; Denies: chest pain, palpitations or shortness of breath with exertion Respiratory Denies: Shortness of breath Exam Constitutional normal general appearance and no apparent distress HENMT normocephalic and head/scalp atraumatic Eyes PERRL Neck/C-Spine visual inspection normal Lymph no lymphadenopathy noted Chest inspection of chest normal Respiratory breath sounds equal bilaterally Cardiovascular normal heart rate noted, regular rhythm noted, murmur noted and edema noted Gastrointestinal abdomen normal to inspection and abdomen soft to palpation Genitourinary no CVA tenderness Back/Pelvis spine normal to inspection Extremities normal to inspection Neurology GCS 15 Psychiatry oriented x3 Skin skin color normal Conclusion/Plan Problem List (1) Acute exacerbation of chronic heart failure: Plan: She meets observation criteria as she has increased oxygen needs and a reduction in her EGFR This exacerbation is likely secondary to medication noncompliance Orders: Intake and output Bumex IV push per ER provider I am restarting her home dose torsemide and spironolactone in the morning Trend troponin (2) Acute kidney injury superimposed on CKD: Plan: Likely secondary to heart failure exacerbation She received a dose of IV Bumex in the ER I have ordered BMP for a.m. Plan Placed in observation Lab Results Lab results reviewed: Yes 05/24/24 15:09 05/24/24 15:09 Core Measures Anticipated LOS I expect patient to be DC'd or transferred within 96 hours.: Yes DVT/VTE - Prophylaxis VTE/DVT Prophylaxis med ordered at admit?: Yes
[2024-05-24] MEDS ORDERED: ONDANSETRON ODT 4 MG TABLET TL PRN (20:59)
[2024-05-24] MEDS ORDERED: ONDANSETRON 4 MG/2 ML VIAL IVP PRN (20:59)
[2024-05-24] MEDS ORDERED: SODIUM CHLORIDE FLUSH 0.9% 10 ML SYRINGE IVP PRN (20:59)
[2024-05-24] MEDS ORDERED: SPIRONOLACTONE 25 MG TABLET PO SCH (20:59)
[2024-05-24] MEDS: carvediloL 12.5 MG TABLET PO SCH (21:26)
[2024-05-25] MEDS: SODIUM CHLORIDE FLUSH 0.9% 10 ML SYRINGE IVP SCH (02:16)
[2024-05-25 04:53] LABS: BASOPHILS % (AUTO) 0.2 %; EOSINOPHILS # (AUTO) 0.1 10^3/uL (0.0-0.7); EOSINOPHILS % (AUTO) 0.8 %; HCT - HEMATOCRIT 27.9 % (37.0-47.0); HGB - HEMOGLOBIN 8.6 g/dL (12.0-16.0); LYMPHOCYTES # (AUTO) 1.1 10^3/uL (1.5-3.5); LYMPHOCYTES % (AUTO) 17.5 %; MEAN CORPUSCULAR HEMOGLOBIN 32.5 pg (27.0-31.0); MEAN CORPUSCULAR HGB CONC 30.8 g/dL (32.0-36.0); MEAN CORPUSCULAR VOLUME 105.3 fL (81.0-99.0); MEAN PLATELET VOLUME 9.3 fL (7.9-10.8); MONOCYTES # (AUTO) 0.4 10^3/uL (0.0-1.0); MONOCYTES % (AUTO) 5.7 %; NEUTROPHILS # (AUTO) 4.6 10^3/uL (1.5-6.6); NEUTROPHILS % (AUTO) 75.1 %; PLT - PLATELET COUNT 158 10^3/uL (130-450); RED BLOOD COUNT 2.65 10^6/uL (4.20-5.40); RED CELL DISTRIBUTION WIDTH 14.7 % (12.0-15.0); WHITE BLOOD COUNT 6.1 x10^3/uL (4.8-10.8)
[2024-05-25 05:14] LABS: CREATININE 1.9 mg/dL (0.6-1.3); POTASSIUM 4.3 mmol/L (3.5-4.5)
--- NOTE | 2024-05-25 08:08 | PROVIDER PROGRESS NOTE ---
Subjective Prog Note Date Prog Note Date: 05/25/24 Prog Note Time: 08:05 Subjective Pt reports feeling: Improved Subjective: Katie is an 88-year-old female here with acute CHF exacerbation and incidental findings of acute kidney injury. She has a history of medication noncompliance and is unsure if she has taken her prescribed medications recently. She noted fluid build up and excessive swelling of both legs prior to coming to ED. She is awake, pleasant, happy to talk, laying on her back with legs elevated. She denies chest pain, difficulty breathing, pain, headache, dizziness, confusion. Now that she has resumed torsemide and spironolactone, she has dropped a lot of water and is feeling great. Her legs are now without pitting edema (previously bilateral 4+ pitting edema on ED arrival). She has a wound on the right stone covered, no oozing or drainage noted. Current Medications Current Medications Current Medications: Current Medications Generic Name Dose Route Start Last Admin Trade Name Freq PRN Reason Stop Dose Admin Acetaminophen 650 mg 05/24/24 20:59 Acetaminophen 325 Mg Tablet PO Q4HR PRN Pain 1 to 4, or Fever Carvedilol 25 mg 05/24/24 21:00 05/24/24 21:26 Carvedilol 12.5 Mg Tablet PO 25 mg BID TORIBIO Administration Digoxin 125 mcg 05/25/24 09:00 Digoxin 125 Mcg Tablet PO DAILY TORIBIO Enoxaparin Sodium 30 mg 05/25/24 09:00 Enoxaparin 30 Mg/0.3 Ml Syringe SUBQ DAILY TORIBIO Multi-Ingredient Ointment 1 applic 05/24/24 22:09 Zinc Oxide 20% Oint 30 Gm Tube TOP PRN PRN Skin Care Ondansetron HCl 4 mg 05/24/24 20:59 Ondansetron Odt 4 Mg Tablet TL Q6HR PRN Nausea / Vomiting Ondansetron HCl 4 mg 05/24/24 20:59 Ondansetron 4 Mg/2 Ml Vial IVP Q6HR PRN Nausea / Vomiting Polyethylene Glycol 17 gm 05/25/24 08:00 Polyethylene Glycol 3350 17 Gm Packet PO DAILY TORIBIO Sodium Chloride 10 ml 05/24/24 20:59 Sodium Chloride Flush 0.9% 10 Ml Syringe IVP PRN PRN NEEDED PER PROVIDER ORDERS Sodium Chloride 10 ml 05/25/24 01:00 05/25/24 02:16 Sodium Chloride Flush 0.9% 10 Ml Syringe IVP Not Given 0100,0900,1700 TORIBIO Spironolactone 25 mg 05/24/24 20:59 Spironolactone 25 Mg Tablet PO Q OTHER DAY TORIBIO Torsemide 40 mg 05/25/24 09:00 Torsemide 20 Mg Tablet PO BID TORIBIO Objective Vital Signs/Intake & Output Reviewed Vital Signs: Yes Vital Signs: Vital Signs x48h Temp Pulse Resp BP Pulse Ox 05/25/24 05:46 36.6 C 71 24 117/59 L 96 05/25/24 00:07 36.8 C 62 24 119/62 95 Intake & Output: Intake & Output 05/22/24 05/23/24 05/24/24 05/25/24 23:59 23:59 23:59 23:59 Intake Total 150 / 150 300 / 300 Output Total 650 / 650 Balance 150 / 150 -350 / -350 Weight (kg) 70.5 kg Objective General Appearance: positive No acute distress (happily laying on her back, speaking with the nurse while getting vitals taken.) and Alert Eyes Bilateral: positive Normal inspection and PERRL ENT: positive No signs of dehydration Neck: positive Nml inspection Respiratory: positive Chest non-tender, No respiratory distress and Breath sounds nml Cardiovascular: positive Regular rate & rhythm Abdomen: positive Non-tender Skin: positive Color nml Extremities: positive Non-tender, Full ROM, Nml appearance and No pedal edema; negative Calf tenderness or Joint swelling Neurologic/Psychiatric: positive Oriented x3, CN's nml (2-12) and Mood/affect nml Lab Results 05/25/24 04:34 05/25/24 04:34 Other Labs: Lab Results x24hrs 05/25/24 05/24/24 05/24/24 Range/Units 04:34 15:38 15:09 WBC 6.1 7.9 (4.8-10.8) x10^3/uL RBC 2.65 L 2.83 L (4.20-5.40) 10^6/uL Hgb 8.6 L 9.1 L (12.0-16.0) g/dL Hct 27.9 L 29.4 L (37.0-47.0) % MCV 105.3 H 103.9 H (81.0-99.0) fL MCH 32.5 H 32.2 H (27.0-31.0) pg MCHC 30.8 L 31.0 L (32.0-36.0) g/dL RDW 14.7 14.9 (12.0-15.0) % Plt Count 158 171 (130-450) 10^3/uL MPV 9.3 9.4 (7.9-10.8) fL Neut # (Auto) 4.6 5.9 (1.5-6.6) 10^3/uL Lymph # (Auto) 1.1 L 1.7 (1.5-3.5) 10^3/uL [place] # (Auto) 0.4 0.2 (0.0-1.0) 10^3/uL Eos # (Auto) 0.1 0.0 (0.0-0.7) 10^3/uL Baso # (Auto) 0.0 0.0 (0.0-0.1) 10^3/uL Absolute Nucleated RBC 0.00 0.00 x10^3/uL Nucleated RBC % 0.0 0.0 /100WBC PT 33.7 H (9.9-12.6) secs INR 3.3 H (0.8-1.2) Sodium 133 L 131 L (135-145) mmol/L Potassium 4.3 4.4 (3.5-4.5) mmol/L Chloride 96 L 94 L (101-111) mmol/L Carbon Dioxide 30 30 (21-32) mmol/L Anion Gap 7.0 7.0 (6-13) BUN 69 H 70 H (6-20) mg/dL Creatinine 1.9 H 2.0 H (0.6-1.3) mg/dL Estimated GFR (MDRD) 25 L 24 L (>89) Glucose 98 126 H (74-104) mg/dL Calcium 8.0 L 8.3 L (8.5-10.3) mg/dL Total Bilirubin 0.8 (0.2-1.0) mg/dL AST 25 (10-42) IU/L ALT 13 (10-60) IU/L Alkaline Phosphatase 55 (42-121) IU/L Troponin I High Sens 48.4 H* (2.3-14.8) ng/L B-Natriuretic Peptide 450 H (5-100) pg/mL Total Protein 6.3 L (6.4-8.9) g/dL Albumin 2.9 L (3.2-5.5) g/dL Globulin 3.4 (2.1-4.2) g/dL Albumin/Globulin Ratio 0.9 L (1.0-2.2) Diagnostic Imaging Diagnostic Imaging Results: positive Final report reviewed ABX Reporting Has patient been on IV antibiotics over the past 48 hours?: No Assessment/Plan Problem List (1) Acute exacerbation of chronic heart failure: Impression: Lower extremity edema has resolved, no pitting edema on exam 0800. She is feeling very well, looking forward to returning home soon. Continue home doses of torsemide, spironolactone for fluid maintenance (2) Acute kidney injury superimposed on CKD: Impression: Last labs done 433 show very slight improvement of electrolytes, BUN, creatinine, and eGFR (was 24, now 25). Will repeat BMP, CBC to check on progress.
[2024-05-25] MEDS: polyethylene glycoL 3350 17 GM PACKET PO SCH (08:38)
[2024-05-25] MEDS: ENOXAPARIN 30 MG/0.3 ML SYRINGE SUBQ SCH (08:38)
[2024-05-25] MEDS: TORSEMIDE 20 MG TABLET PO SCH (08:39)
[2024-05-25] MEDS: DIGOXIN 125 MCG TABLET PO SCH (08:39)
--- NOTE | 2024-05-25 10:23 | Discharge Summary ---
"Discharge Summary Admit Date: 05/24/24 (Observation) Discharging Provider: Lowell Gautam NP Primary Care Provider: TOM Gresham Code Status: Do Not Attempt Resuscitation DIAGNOSES Admission Diagnoses: Acute exacerbation of congestive heart failure with acute kidney injury superimposed on CKD Discharge Diagnoses with Status of Each Condition: Acute exacerbation of congestive heart failure - symptoms of acute exacerbation resolved, no edema Acute kidney injury superimposed on CKD- asymptomatic, labs are trending better. GFR up to 25, BUN to 1.9 Digoxin toxicity - Digoxin level 4.7, per Poison Control, monitoring with repeat digoxin levels, potassium levels, and serial EKGs every 4-6 hours overnight. HPI History of Present Illness: 88-year-old female PMH significant for CHF on torsemide and spironolactone at home. She has been in and out of the hospital for the past several months. She has history of medication noncompliance, is unsure if she is taking her spironolactone and torsemide. She has had difficulty walking and generalized weakness secondary to fluid overload. In the ER, she was noted to have an CUBA and a new requirement of 2 L O2. Her EGFR was 42 last month, now was 24. Hospitalist was contacted for observation for CHF exacerbation with reduction in kidney function Her spouse states that she manages the patient's medications, she takes the exactly as prescribed, and has not missed any doses or taken any extra doses of her medication. CONSULTS | PROCEDURES Procedures: Chest XR - Moderate cardiomegaly, with interstitial prominence and bilateral pleural effusions. These imaging findings are supportive of the clinical diagnosis of CHF. Postoperative and degenerative changes are seen. HOSPITAL COURSE Hospital Course: Patient was brought into hospital and placed in observation. We gave IV Bumex and resumed home medications. We diuresed over 4kg while in observation. Today symptoms have improved and she is able to discharge to home with PCP follow up. Last ECHO done 2 months ago showed 35-40% ejection fraction. No indication for repeat ECHO at this time. We considered changing patient home medications to Jardiance, Entresto, a DOAC, however these are prohibitively expensive for the patient. We will continue current home regime with strict instruction to ensure she takes her medications as prescribed. We considered discharging patient to home at this point, however add-on blood work shows Digoxin toxicity with a level of 4.7. She is asymptomatic without severe bradycardia, visual halos, apnea, or altered mental status. We called Poison Control, who recommended repeat digoxin and potassium levels q4hr, check EKG every 4-6 hours, and to remain in observation overnight. The patient understands and is in agreement. ALLERGIES Allergies Allergy/AdvReac Type Severity Reaction Status Date / Time No Known Drug Allergies Allergy Verified 05/24/24 15:17 MEDICATIONS Ambulatory Orders Medication Instructions Recorded Confirmed carvedilol 25 mg tablet (Coreg) 25 mg PO BID 06/11/22 05/25/24 torsemide 20 mg tablet 20 mg PO DAILY 11/22/23 05/25/24 digoxin 125 mcg (0.125 mg) tablet 0.125 mg PO DAILY 03/09/24 05/25/24 latanoprost 0.005 % eye drops 1 drp ophthalmic (eye) QPM 03/09/24 05/25/24 spironolactone 25 mg tablet 25 mg PO Q OTHER DAY 03/09/24 05/25/24 calcium carbonate 600 mg PO DAILY 05/03/24 05/25/24 dorzolamide 2 % eye drops 1 drp ophthalmic (eye) BID 05/03/24 05/25/24 multivitamin 1 tab PO DAILY 05/03/24 05/25/24 losartan 100 mg tablet 100 mg PO DAILY 05/25/24 05/25/24 warfarin 5 mg tablet See Rx Instructions .Route .COMPLEX 05/25/24 05/25/24 PHYSICAL EXAM AT DISCHARGE General Appearance: positive No acute distress and Alert Eyes Bilateral: positive Normal inspection ENT: positive ENT inspection nml Neck: positive Nml inspection Respiratory: positive Chest non-tender, No respiratory distress and Breath sounds nml Cardiovascular: positive Regular rate & rhythm Abdomen: positive Non-tender Back: positive Nml inspection Skin: positive Color nml Extremities: positive Non-tender, Full ROM and No pedal edema Neurologic/Psychiatric: positive Oriented x3, CN's nml (2-12), Motor nml, Sensation nml and Mood/affect nml LABS 05/25/24 04:34 05/25/24 04:34 DIAGNOSTIC IMAGING Diagnostic Imaging Results: Final report reviewed FOLLOW UP Follow Up: Follow up with primary care provider. TIME SPENT Time Spent in Discharge (Minutes): 25 Discharge Plan Discharge Patient Disposition: 01 Home, Self Care Condition: Stable Medically Cleared Date:: 05/25/24 Prescriptions: New bumetanide 1 mg Tablet 1 mg PO BIDDIURETIC Qty: 60 0RF Continued carvedilol [Coreg] 25 MG tablet 25 mg PO BID latanoprost 0.005 % drops 1 drp ophthalmic (eye) QPM Patient Comments: INSTILL 1 DROP INTO RIGHT EYE IN THE EVENING spironolactone 25 mg tablet 25 mg PO Q OTHER DAY Patient Comments: TAKE 1 TABLET BY MOUTH EVERY OTHER DAY. PLEASE COMPLETE THE LABS THAT YOUR PROVIDER HAS ORDERED. calcium carbonate 600 mg calcium (1,500 mg) tablet 600 mg PO DAILY multivitamin Tablet 1 tab PO DAILY dorzolamide 2 % drops 1 drp ophthalmic (eye) BID Patient Comments: Instill into right eye losartan 100 mg tablet 100 mg PO DAILY Patient Comments: TAKE 1 TABLET BY MOUTH ONCE DAILY warfarin 5 mg tablet See Rx Instructions .ROUTE .COMPLEX Patient Comments: TAKE 1 TABLET BY MOUTH ONCE DAILY ON SAT,,, AND SATURDAY. TAKE 1/2 TABLET BY MOUTH ONCE DAILY ON SAT, , AND SAT OR DIRECTED Rx Instructions: TAKE 1 TABLET BY MOUTH ONCE DAILY ON SAT,,, AND SATURDAY. TAKE 1/2 TABLET BY MOUTH ONCE DAILY ON SAT, WEDS, AND SAT OR DIRECTED Discontinued torsemide 20 MG tablet 20 mg PO DAILY Patient Comments: TAKE 1 TABLET BY MOUTH ONCE DAILY (DIURETIC) Rx Instructions: for 15 days starting 02/25 digoxin 125 mcg (0.125 mg) tablet 0.125 mg PO DAILY Patient Comments: TAKE 1 TABLET BY MOUTH ONCE DAILY (PLEASE HAVE LABS DONE. THANK YOU!) Diet: Low Sodium Health Concerns: You were placed in observation for acute worsening of your congestive heart failure, which led to swelling in your legs and generalized weakness. You were found to also have an acute worsening of your kidney failure seen on lab results. We were able to restart your home medications, which got a lot of the fluid you had accumulated and your swelling has improved. Your lab results are also slowly improving back to your baseline kidney function. It is important to make sure that you take your prescribed medications daily as instructed by your primary care provider to prevent further worsening of your chronic conditions. We found that you have too much Digoxin in your system. We called Poison Control, and their recommendation is . We will get you an injection called Digi-Artemio which will reduce your Digoxin levels. Discharge instructions: 1. We are stopping your Digoxin. Do not start taking this medication until you see your primary care provider. 2. We are replacing your Torsemide with Bumex. Stop taking the Torsemide. Start taking Bumex. . Stay on a low salt diet to decrease the amount of water that is retained. . Weigh yourself daily to check for water retention. If you gain more than 5 pounds, call your primary care provider. . Make appointment to see your primary care provider within the next two weeks. Print Language: Austrian Patient Instructions: Heart Failure Stand Alone Forms: PCP List"
--- NOTE | 2024-05-25 11:12 | PHARMACY PROGRESS NOTE ---
Best Possible Medication History Admit Date and Time: 05/24/241956 Home Medications Medication Instructions Recorded Confirmed Type carvedilol 25 mg tablet (Coreg) 25 mg PO BID 06/11/22 05/25/24 History torsemide 20 mg tablet 20 mg PO DAILY 11/22/23 05/25/24 History digoxin 125 mcg (0.125 mg) tablet 0.125 mg PO DAILY 03/09/24 05/25/24 History latanoprost 0.005 % eye drops 1 drp ophthalmic (eye) QPM 03/09/24 05/25/24 History spironolactone 25 mg tablet 25 mg PO Q OTHER DAY 03/09/24 05/25/24 History calcium carbonate 600 mg PO DAILY 05/03/24 05/25/24 History dorzolamide 2 % eye drops 1 drp ophthalmic (eye) BID 05/03/24 05/25/24 History multivitamin 1 tab PO DAILY 05/03/24 05/25/24 History losartan 100 mg tablet 100 mg PO DAILY 05/25/24 05/25/24 History warfarin 5 mg tablet See Rx Instructions .Route .COMPLEX 05/25/24 05/25/24 History Processed by: Pharmacy Medications reviewed in ED?: No Medication History completed: Yes Patient Interview: Completed Secondary Source(s): Pharmacy records and Insurance records [facility] Statement: As the person ultimately responsible for medication therapy, providers are able to order a medication from an existing home medication list in [facility] via the "Reconcile Routine" prior to Confirmation of that medication by ict support technicians. Such practice is discouraged except when the physician, in their clinical judgment, deems that a medical need exists for a medication without regard to previous use.
[2024-05-25 11:42] LABS: DIGOXIN 4.7 ng/mL
[2024-05-25] MEDS ORDERED: SODIUM CHLORIDE 0.9% IV SCH (12:00)
[2024-05-25] MEDS ORDERED: [UNRECOGNIZED DRUG - OTHER] IV SCH (12:00)
[2024-05-25] MEDS: BUMETANIDE 1 MG TABLET PO SCH (12:47)
--- NOTE | 2024-05-25 13:07 | PROVIDER PROGRESS NOTE ---
<Statement entered by Lowell Gautam DNP - 05/25/24 14:36> Patient was seen and examined by me with a separate encounter after being seen by [employer]LE[employer] student. I reviewed the student's documentation including patient history, physical examination, laboratory, imaging, clinical assessment and treatment plan. I have discussed the management of the patient with the student, and with the patient. Troponin downtrending. Discussed case with poison control, they do not recommend DigiFab. They do recommend continued observation with every 4 potassium and digoxin levels and every 6 EKGs. I have ordered these PT/OT consult for discharge planning Subjective Prog Note Date Prog Note Date: 05/25/24 Prog Note Time: 12:51 Subjective Pt reports feeling: Improved Subjective: Katie is feeling very well today and is pleased with the amount of fluid we have diuresed. She denies chest pain, shortness of breath, difficulty breathing, confusion, headache. Her edema has largely resolved, with no pitting edema on either leg, but some residual edema of upper thighs. Her kidney function has improved with eGFR from 24 to 25, and creatinine from 2.0 to 1.9. There was some confusion while in the ED if she has been taking her home medications as prescribed. Her spouse states that she manages the patient's prescriptions and ensures they are taken daily and as prescribed. She denies any missed or extra doses. She states last home medications were given yesterday morning (05/24/24). No ECHO indicated at this time, her last ECHO was 2 months ago and showed 35-40% ejection fraction. Because her edema has improved so greatly with administration of Bumex, we considered altering the patient's CHF medications to include Jardiance, Entresto, and/or a DOAC, however these medications are prohibitively expensive for the patient. We will stop her Torsemide and switch her to Bumex for home medication due to good response while in observation. We considered discharging the patient home at this point, but ordered a Digoxin level first due to concerns of medication noncompliance. This showed Digoxin toxicity with a critical level of 4.7. Pharmacy does not have Digi-Kai in stock and ordering this or acquiring from another facility would take a full day. We called Poison Control and they recommended no Digi-Kai at this time, but to keep the patient overnight and to get serial Digoxin and potassium levels every 4 hours and serial EKGs every 4-6 hours to monitor for any changes. Orders for these have been placed by [facility]. We will also stop her Digoxin and she has been told not to restart this medication until seeing her cafe server or PCP. Her is concerned that the patient is too unstable to bring home at this time, she expresses great fear that the edema will return and they will have to come back to the hospital. She is pleased to hear that we recommend staying overnight for Digoxin toxicity monitoring. OT to come to evaluate patient mobility today to determine if she is safe to return to home or if a facility should be considered. The patient and her state full understanding, no further questions at this time. They are please with the current plan. Current Medications Current Medications Current Medications: Current Medications Generic Name Dose Route Start Last Admin Trade Name Freq PRN Reason Stop Dose Admin Acetaminophen 650 mg 05/24/24 20:59 Acetaminophen 325 Mg Tablet PO Q4HR PRN Pain 1 to 4, or Fever Bumetanide 1 mg 05/25/24 11:50 05/25/24 12:47 Bumetanide 1 Mg Tablet PO 1 mg BIDDIURETIC TORIBIO Administration Carvedilol 25 mg 05/24/24 21:00 05/25/24 10:56 Carvedilol 12.5 Mg Tablet PO Not Given BID TORIBIO Enoxaparin Sodium 30 mg 05/25/24 09:00 05/25/24 08:38 Enoxaparin 30 Mg/0.3 Ml Syringe SUBQ 30 mg DAILY TORIBIO Administration Digoxin Immune KAI 40 mg/ 50 mls @ 100 mls/hr 05/25/24 12:00 Sodium Chloride IV ONCE TORIBIO Multi-Ingredient Ointment 1 applic 05/24/24 22:09 Zinc Oxide 20% Oint 30 Gm Tube TOP PRN PRN Skin Care Ondansetron HCl 4 mg 05/24/24 20:59 Ondansetron Odt 4 Mg Tablet TL Q6HR PRN Nausea / Vomiting Ondansetron HCl 4 mg 05/24/24 20:59 Ondansetron 4 Mg/2 Ml Vial IVP Q6HR PRN Nausea / Vomiting Polyethylene Glycol 17 gm 05/25/24 08:00 05/25/24 10:48 Polyethylene Glycol 3350 17 Gm Packet PO 17 gm DAILY TORIBIO Administration Sodium Chloride 10 ml 05/24/24 20:59 Sodium Chloride Flush 0.9% 10 Ml Syringe IVP PRN PRN NEEDED PER PROVIDER ORDERS Sodium Chloride 10 ml 05/25/24 01:00 05/25/24 08:39 Sodium Chloride Flush 0.9% 10 Ml Syringe IVP 10 ml 0100,0900,1700 TORIBIO Administration Spironolactone 25 mg 05/24/24 20:59 Spironolactone 25 Mg Tablet PO Q OTHER DAY TORIBIO Objective Vital Signs/Intake & Output Reviewed Vital Signs: Yes Vital Signs: Vital Signs x48h Temp Pulse Resp BP Pulse Ox O2 Flow Rate 05/25/24 08:42 59 L 18 106/49 L 94 05/25/24 08:10 36.3 C L 59 L 19 112/47 L 95 0 05/25/24 05:46 36.6 C 71 24 117/59 L 96 Intake & Output: Intake & Output 05/22/24 05/23/24 05/24/24 05/25/24 23:59 23:59 23:59 23:59 Intake Total 150 / 150 540 / 540 Output Total 650 / 650 Balance 150 / 150 -110 / -110 Weight (kg) 70.5 kg Objective General Appearance: positive No acute distress (pleasant, cooperative, sitting upright in bed eating her lunch) and Alert Eyes Bilateral: positive Normal inspection ENT: positive ENT inspection nml Neck: positive Nml inspection Respiratory: positive No respiratory distress Cardiovascular: positive Regular rate & rhythm Abdomen: positive Non-tender Back: positive Nml inspection and CVA tenderness (R) Skin: positive Color nml Extremities: positive Non-tender, Full ROM, No pedal edema and Other (mild bilateral thigh edema, non-pitting) Neurologic/Psychiatric: positive Oriented x3, CN's nml (2-12), Motor nml, Sensation nml and Mood/affect nml Lab Results 05/25/24 04:34 05/25/24 13:04 Other Labs: Lab Results x24hrs 05/25/24 05/24/24 05/24/24 Range/Units 04:34 15:38 15:09 WBC 6.1 7.9 (4.8-10.8) x10^3/uL RBC 2.65 L 2.83 L (4.20-5.40) 10^6/uL Hgb 8.6 L 9.1 L (12.0-16.0) g/dL Hct 27.9 L 29.4 L (37.0-47.0) % MCV 105.3 H 103.9 H (81.0-99.0) fL MCH 32.5 H 32.2 H (27.0-31.0) pg MCHC 30.8 L 31.0 L (32.0-36.0) g/dL RDW 14.7 14.9 (12.0-15.0) % Plt Count 158 171 (130-450) 10^3/uL MPV 9.3 9.4 (7.9-10.8) fL Neut # (Auto) 4.6 5.9 (1.5-6.6) 10^3/uL Lymph # (Auto) 1.1 L 1.7 (1.5-3.5) 10^3/uL Wilkinson # (Auto) 0.4 0.2 (0.0-1.0) 10^3/uL Eos # (Auto) 0.1 0.0 (0.0-0.7) 10^3/uL Baso # (Auto) 0.0 0.0 (0.0-0.1) 10^3/uL Absolute Nucleated RBC 0.00 0.00 x10^3/uL Nucleated RBC % 0.0 0.0 /100WBC PT 33.7 H (9.9-12.6) secs INR 3.3 H (0.8-1.2) Sodium 133 L 131 L (135-145) mmol/L Potassium 4.3 4.4 (3.5-4.5) mmol/L Chloride 96 L 94 L (101-111) mmol/L Carbon Dioxide 30 30 (21-32) mmol/L Anion Gap 7.0 7.0 (6-13) BUN 69 H 70 H (6-20) mg/dL Creatinine 1.9 H 2.0 H (0.6-1.3) mg/dL Estimated GFR (MDRD) 25 L 24 L (>89) Glucose 98 126 H (74-104) mg/dL Calcium 8.0 L 8.3 L (8.5-10.3) mg/dL Total Bilirubin 0.8 (0.2-1.0) mg/dL AST 25 (10-42) IU/L ALT 13 (10-60) IU/L Alkaline Phosphatase 55 (42-121) IU/L Troponin I High Sens 48.4 H* (2.3-14.8) ng/L B-Natriuretic Peptide 450 H (5-100) pg/mL Total Protein 6.3 L (6.4-8.9) g/dL Albumin 2.9 L (3.2-5.5) g/dL Globulin 3.4 (2.1-4.2) g/dL Albumin/Globulin Ratio 0.9 L (1.0-2.2) Last Dose Date UNKNOWN Last Dose Time UNKNOWN Digoxin 4.7 H* ng/mL ABX Reporting Has patient been on IV antibiotics over the past 48 hours?: No Assessment/Plan Problem List (1) Digoxin toxicity: Impression: Stop digoxin. Considered administering Digi-Kai, however we do not have it in stock and ordering it or acquiring it from another facility will take at least 1 day. Per Poison Control, we will continue monitoring with repeat digoxin and potassium levels q4h, and serial EKGs q6h. Patient will be admitted to inpatient for continued observation. 0435: Digoxin level 4.7 1304: Digoxin level 3.7 Qualifiers: Encounter type: initial encounter Injury intent: accidental or unintentional Qualified Code(s): T46.0X1A - Poisoning by cardiac-stimulant glycosides and drugs of similar action, accidental (unintentional), initial encounter (2) Acute exacerbation of chronic heart failure: Impression: We will continue Bumex and discontinue her home Torsemide. Lower extremity edema has largely resolved, with only mild upper thigh edema remaining. No pitting edema, no loss of ROM. We will trend her high-sensitivity Troponin I to monitor for any change. Currently asymptomatic with no acute concerns for [place]. (3) Acute kidney injury superimposed on CKD: Impression: Kidney function labs are trending toward baseline. We will repeat BMP tomorrow morning.
[2024-05-25 13:23] LABS: POTASSIUM 4.3 mmol/L (3.5-4.5)
[2024-05-25 13:35] LABS: DIGOXIN 3.7 ng/mL
[2024-05-25 17:10] LABS: POTASSIUM 4.3 mmol/L (3.5-4.5)
[2024-05-25 17:12] LABS: DIGOXIN 3.7 ng/mL
[2024-05-25] MEDS ORDERED: CALCIUM CHLORIDE ABBOJECT 1000MG/10 ML SYRINGE IVP ONE (20:58)
[2024-05-25 21:38] LABS: POTASSIUM 4.6 mmol/L (3.5-4.5)
[2024-05-25 21:43] LABS: DIGOXIN 3.1 ng/mL
[2024-05-25] MEDS: CALCIUM CHLORIDE ABBOJECT IVP ONE (22:16)
[2024-05-25] MEDS: SODIUM CHLORIDE 0.9% IVP ONE (22:16)
[2024-05-26 01:36] LABS: DIGOXIN 3.4 ng/mL
[2024-05-26 05:19] LABS: BASOPHILS % (AUTO) 0.4 %; EOSINOPHILS % (AUTO) 0.8 %; HCT - HEMATOCRIT 27.9 % (37.0-47.0); HGB - HEMOGLOBIN 8.9 g/dL (12.0-16.0); LYMPHOCYTES # (AUTO) 1.3 10^3/uL (1.5-3.5); LYMPHOCYTES % (AUTO) 25.4 %; MEAN CORPUSCULAR HEMOGLOBIN 32.5 pg (27.0-31.0); MEAN CORPUSCULAR HGB CONC 31.9 g/dL (32.0-36.0); MEAN CORPUSCULAR VOLUME 101.8 fL (81.0-99.0); MEAN PLATELET VOLUME 9.1 fL (7.9-10.8); MONOCYTES # (AUTO) 0.3 10^3/uL (0.0-1.0); MONOCYTES % (AUTO) 6.7 %; NEUTROPHILS # (AUTO) 3.3 10^3/uL (1.5-6.6); NEUTROPHILS % (AUTO) 65.9 %; PLT - PLATELET COUNT 160 10^3/uL (130-450); RED BLOOD COUNT 2.74 10^6/uL (4.20-5.40); RED CELL DISTRIBUTION WIDTH 14.7 % (12.0-15.0)
[2024-05-26 05:33] LABS: CALCIUM 8.3 mg/dL (8.5-10.3); CREATININE 1.6 mg/dL (0.6-1.3); MAGNESIUM 2.2 mg/dL (1.7-2.3); POTASSIUM 4.3 mmol/L (3.5-4.5)
[2024-05-26 05:45] LABS: POTASSIUM 4.4 mmol/L (3.5-4.5)
[2024-05-26 05:48] LABS: DIGOXIN 3.3 ng/mL
[2024-05-26] MEDS: BUMETANIDE 1 MG/4 ML VIAL IVP SCH (08:23)
[2024-05-26 09:10] LABS: POTASSIUM 4.2 mmol/L (3.5-4.5)
[2024-05-26 09:14] LABS: DIGOXIN 3.4 ng/mL
--- NOTE | 2024-05-26 09:31 | PROVIDER PROGRESS NOTE ---
<Statement entered by Lowell Gautam DNP - 05/26/24 16:32> Patient was seen and examined by me with a separate encounter after being seen by HARLEEN student. I reviewed the student's documentation including patient history, physical examination, laboratory, imaging, clinical assessment and treatment plan. I have discussed the management of the patient with the student, and with the patient. There are no changes. Continuing IV Bumex. Creatinine is improving. Recheck BMP in a.m. At this point the dig toxicity has improved, I am discontinuing the EKGs and De- escalating chemistry checks to daily Subjective Prog Note Date Prog Note Date: 05/26/24 Prog Note Time: 09:25 Subjective Pt reports feeling: No change Subjective: 15: Patient is laying on her back in bed, awake and alert, pleasant, conversational, and in good spirits. She reports feeling very well, she slept decently, and ate breakfast this morning. She reports appetite "like a racehorse". She is oriented to self, place, and date. She has no symptomatic concerns, denies chest pain, muscle cramping, headache, confusion, vision changes, coughing, shortness of breath, difficulty breathing, stomach cramping, nausea. She is looking forward to seeing OT/PT today. Current Medications Current Medications Current Medications: Current Medications Generic Name Dose Route Start Last Admin Trade Name Freq PRN Reason Stop Dose Admin Acetaminophen 650 mg 05/24/24 20:59 Acetaminophen 325 Mg Tablet PO Q4HR PRN Pain 1 to 4, or Fever Bumetanide 1 mg 05/26/24 09:00 05/26/24 08:23 Bumetanide 1 Mg/4 Ml Vial IVP 1 mg DAILY TORIBIO Administration Carvedilol 25 mg 05/24/24 21:00 05/26/24 08:23 Carvedilol 12.5 Mg Tablet PO 25 mg BID TORIBIO Administration Enoxaparin Sodium 30 mg 05/25/24 09:00 05/26/24 08:24 Enoxaparin 30 Mg/0.3 Ml Syringe SUBQ 30 mg DAILY TORIBIO Administration Multi-Ingredient Ointment 1 applic 05/24/24 22:09 Zinc Oxide 20% Oint 30 Gm Tube TOP PRN PRN Skin Care Ondansetron HCl 4 mg 05/24/24 20:59 Ondansetron Odt 4 Mg Tablet TL Q6HR PRN Nausea / Vomiting Ondansetron HCl 4 mg 05/24/24 20:59 Ondansetron 4 Mg/2 Ml Vial IVP Q6HR PRN Nausea / Vomiting Polyethylene Glycol 17 gm 05/25/24 08:00 05/26/24 08:24 Polyethylene Glycol 3350 17 Gm Packet PO 17 gm DAILY TORIBIO Administration Sodium Chloride 10 ml 05/24/24 20:59 Sodium Chloride Flush 0.9% 10 Ml Syringe IVP PRN PRN NEEDED PER PROVIDER ORDERS Sodium Chloride 10 ml 05/25/24 01:00 05/26/24 08:23 Sodium Chloride Flush 0.9% 10 Ml Syringe IVP 10 ml 0100,0900,1700 TORIBIO Administration Spironolactone 25 mg 05/24/24 20:59 Spironolactone 25 Mg Tablet PO Q OTHER DAY TORIBIO Objective Vital Signs/Intake & Output Reviewed Vital Signs: Yes Vital Signs: Vital Signs x48h Temp Pulse Pulse Resp BP Pulse Ox 05/26/24 08:40 138/60 H 05/26/24 08:10 36.4 C L 63 24 126/57 L 95 05/26/24 04:51 36.7 C 65 18 124/57 L 96 Intake & Output: Intake & Output 05/23/24 05/24/24 05/25/24 05/26/24 23:59 23:59 23:59 23:59 Intake Total 150 / 150 990 / 990 240 / 240 Output Total 1050 / 1050 600 / 600 Balance 150 / 150 -60 / -60 -360 / -360 Weight (kg) 70.5 kg Objective General Appearance: positive No acute distress (laying in bed, watching TV, alert, pleasant, cooperative. Wants to brush her teeth. ) and Alert Eyes Bilateral: positive Normal inspection, PERRL and EOMI ENT: positive Dry mucous membranes Neck: positive Trachea midline; negative No JVD (Positive JVD) or Stiff neck Respiratory: positive Chest non-tender and No respiratory distress; negative Breath sounds nml (mild decreased breath sounds throughout), Wheezes, Rales or Rhonchi Cardiovascular: positive Irregularly irregular; negative Regular rate & rhythm or Decreased pulse(s) Abdomen: positive Non-tender, No organomegaly and Nml bowel sounds Back: positive Nml inspection Skin: positive Color nml, Warm and Dry Extremities: positive Full ROM, Pedal edema and Other (Bilateral +2 pitting edema of feet and lower legs up to knee, +1 pitting edema above knee bilaterally) Neurologic/Psychiatric: positive Oriented x3, CN's nml (2-12), Motor nml, Sensation nml and Mood/affect nml Lab Results 05/26/24 05:09 05/26/24 12:57 Other Labs: Lab Results x24hrs 05/26/24 05/26/24 05/26/24 Range/Units 08:45 05:09 05:09 WBC 5.0 (4.8-10.8) x10^3/uL RBC 2.74 L (4.20-5.40) 10^6/uL Hgb 8.9 L (12.0-16.0) g/dL Hct 27.9 L (37.0-47.0) % MCV 101.8 H (81.0-99.0) fL MCH 32.5 H (27.0-31.0) pg MCHC 31.9 L (32.0-36.0) g/dL RDW 14.7 (12.0-15.0) % Plt Count 160 (130-450) 10^3/uL MPV 9.1 (7.9-10.8) fL Neut # (Auto) 3.3 (1.5-6.6) 10^3/uL Lymph # (Auto) 1.3 L (1.5-3.5) 10^3/uL [place] # (Auto) 0.3 (0.0-1.0) 10^3/uL Eos # (Auto) 0.0 (0.0-0.7) 10^3/uL Baso # (Auto) 0.0 (0.0-0.1) 10^3/uL Absolute Nucleated RBC 0.00 x10^3/uL Nucleated RBC % 0.0 /100WBC Sodium 132 L (135-145) mmol/L Potassium 4.2 4.4 4.3 (3.5-4.5) mmol/L Chloride 97 L (101-111) mmol/L Carbon Dioxide 30 (21-32) mmol/L Anion Gap 5.0 L (6-13) BUN 65 H (6-20) mg/dL Creatinine 1.6 H (0.6-1.3) mg/dL Estimated GFR (MDRD) 30 L (>89) Glucose 97 (74-104) mg/dL Calcium 8.3 L (8.5-10.3) mg/dL Magnesium 2.2 (1.7-2.3) mg/dL Troponin I High Sens (2.3-14.8) ng/L Last Dose Date 05-25-24 Last Dose Time 0900 Digoxin 3.4 H* 3.3 H* ng/mL 05/26/24 05/25/24 05/25/24 Range/Units 01:04 20:46 16:44 WBC (4.8-10.8) x10^3/uL RBC (4.20-5.40) 10^6/uL Hgb (12.0-16.0) g/dL Hct (37.0-47.0) % MCV (81.0-99.0) fL MCH (27.0-31.0) pg MCHC (32.0-36.0) g/dL RDW (12.0-15.0) % Plt Count (130-450) 10^3/uL MPV (7.9-10.8) fL Neut # (Auto) (1.5-6.6) 10^3/uL Lymph # (Auto) (1.5-3.5) 10^3/uL [place] # (Auto) (0.0-1.0) 10^3/uL Eos # (Auto) (0.0-0.7) 10^3/uL Baso # (Auto) (0.0-0.1) 10^3/uL Absolute Nucleated RBC x10^3/uL Nucleated RBC % /100WBC Sodium (135-145) mmol/L Potassium Cancelled 4.6 H 4.3 (3.5-4.5) mmol/L Chloride (101-111) mmol/L Carbon Dioxide (21-32) mmol/L Anion Gap (6-13) BUN (6-20) mg/dL Creatinine (0.6-1.3) mg/dL Estimated GFR (MDRD) (>89) Glucose (74-104) mg/dL Calcium (8.5-10.3) mg/dL Magnesium (1.7-2.3) mg/dL Troponin I High Sens (2.3-14.8) ng/L Last Dose Date 05-25-24 UNKNOWN 05/25/24 Last Dose Time 0900 UNKNOWN 0900 Digoxin 3.4 H* 3.1 H* 3.7 H* ng/mL 05/25/24 05/25/24 Range/Units 13:04 04:34 WBC (4.8-10.8) x10^3/uL RBC (4.20-5.40) 10^6/uL Hgb (12.0-16.0) g/dL Hct (37.0-47.0) % MCV (81.0-99.0) fL MCH (27.0-31.0) pg MCHC (32.0-36.0) g/dL RDW (12.0-15.0) % Plt Count (130-450) 10^3/uL MPV (7.9-10.8) fL Neut # (Auto) (1.5-6.6) 10^3/uL Lymph # (Auto) (1.5-3.5) 10^3/uL [place] # (Auto) (0.0-1.0) 10^3/uL Eos # (Auto) (0.0-0.7) 10^3/uL Baso # (Auto) (0.0-0.1) 10^3/uL Absolute Nucleated RBC x10^3/uL Nucleated RBC % /100WBC Sodium (135-145) mmol/L Potassium 4.3 (3.5-4.5) mmol/L Chloride (101-111) mmol/L Carbon Dioxide (21-32) mmol/L Anion Gap (6-13) BUN (6-20) mg/dL Creatinine (0.6-1.3) mg/dL Estimated GFR (MDRD) (>89) Glucose (74-104) mg/dL Calcium (8.5-10.3) mg/dL Magnesium (1.7-2.3) mg/dL Troponin I High Sens 38.1 H* (2.3-14.8) ng/L Last Dose Date UNK UNKNOWN Last Dose Time UNK UNKNOWN Digoxin 3.7 H* 4.7 H* ng/mL ABX Reporting Has patient been on IV antibiotics over the past 48 hours?: No Assessment/Plan Problem List (1) Digoxin toxicity: Impression: Remains asymptomatic. Vitals are stable without bradycardia or new arrhythmia. Last Digoxin level taken today 1257 is within normal at 2.9. We will follow up with Poison Control to determine next recommendations. Qualifiers: Encounter type: initial encounter Injury intent: accidental or unintentional Qualified Code(s): T46.0X1A - Poisoning by cardiac-stimulant glycosides and drugs of similar action, accidental (unintentional), initial encounter (2) Acute exacerbation of chronic heart failure: Impression: Acute exacerbation returns after previously good improvement on Bumex. Bilateral LE +2 pitting edema and JVD present on exam. We will continue Bumex for diuresis. (3) Acute kidney injury superimposed on CKD: Impression: Last labs drawn 0509 today show slow improvement toward baseline. GFR up to 30, Creatinine down to 1.6. Will continue Bumex and home medications.
[2024-05-26 13:22] LABS: DIGOXIN 2.9 ng/mL; POTASSIUM 4.1 mmol/L (3.5-4.5)
--- NOTE | 2024-05-26 13:48 | OT Plan of Care ---
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 A&Ox4 however lethargic, willing to participate with therapy. VSS on RA - BP stable ~110/50's. Denied dizziness. Pt performed supine to sit MOD A, sit to stand MIN A, and SPT MIN A using RW - guarded and slow 2/ 2 fatigue. Overall pt presents with decreased activity tolerance, strength, and ADL status. Will benefit from cont OT services during acute stay to progress indp and safety for d/c. Rec d/ c to SNF at this time. Goals - Activities of Daily Living Improve Upper Extremity Modified Independent Dressing to: Improve Lower Extremity Modified Independent Dressing to: Improve Grooming/Hygiene to: Modified Independent Improve Bathing to: Modified Independent Improve Toileting to: Modified Independent Plan Treatment Frequency 1x/day Duration Until discharge -Discharge Recommendations [facility] Support/Services Needed Home Health O.T. Transport Needs at Discharge [facility]
[2024-05-26] MEDS: CALCIUM GLUCONATE IN NS 0.9% 2,000 MG/100 ML BAG IV ONE (13:55)
--- NOTE | 2024-05-26 15:55 | PT Plan of Care ---
PT Inpatient Plan of Care DIAGNOSIS Diagnosis: CHF exacerbation Diagnosis: digoxin toxicity Referring Provider: Lowell Gautam Patient Status: Inpatient CHIEF COMPLAINT Chief Complaint: weakness, fatigue Onset of Chief Complaint: BOTTLE TESTER MEDICAL/SURGICAL HISTORY Medical History (Updated 05/25/24 @ 13:08 by Carol Brown) Lymphedema BALANCE/FUNCTIONAL RESULTS Sitting Balance: Fair Standing Balance: Fair ASSESSMENT Assessment: Pt is a pleasant 88yo F referred for PT eval d/t limited mobility. Pt is known to this PT having been seen for similar during recent admission. This admission with CHF exacerbation, R > L LE cellulitis and edema and digoxin toxicity. Pt lives in [facility] with partner "Yessenia" who is present for majority of PT eval. Pt was indep at baseline, however overall decline in function since Mar 2024 hospitalization. Now requiring FWW and has difficulty with stairs in home; previously climbed stairs daily. Upon PT eval, pt is hypotensive but not orthostatic. Reports significant fatigue and requires increased time to complete all tasks. Transfers with min to modAx2 and limited steps at bedside with FWW and modAx1. Of note during recent hospitalization, pt was previously CGA and able to amb w/ FWW and CGA x20' to bathroom. Pt may benefit from skilled PT in acute setting to improve activity tolerance and increase ambulation distance. When medically clear, PT rec dc to SNF as she is unable to access upstairs level of home and is significantly deconditioned. GOALS Improve supine to sit to:: Contact Guard Improve sit to stand to:: Minimal Assist Improve pivot transfer ability to:: Minimal Assist Improve sit to supine to:: Contact Guard Improve gait ability to:: CGA Advance Assistive Device to:: Front Wheeled Walker Increase distance walked to (in feet):: 50 Improve Sitting Balance to:: Good PLAN Frequency: 1-2x/day Duration: Until goals are met DISCHARGE RECOMMENDATIONS Discharge Location: Assisted Facility DC Equipment Recommended: Front wheeled walker Other Discharge Equipment: has FWW at home Transport Needs at Discharge: Wheelchair van
[2024-05-26 17:18] LABS: DIGOXIN 2.9 ng/mL; POTASSIUM 4.3 mmol/L (3.5-4.5)
[2024-05-26 21:01] LABS: POTASSIUM 4.5 mmol/L (3.5-4.5)
[2024-05-27 00:51] LABS: DIGOXIN 2.6 ng/mL; POTASSIUM 4.4 mmol/L (3.5-4.5)
[2024-05-27 04:58] LABS: BASOPHILS % (AUTO) 0.2 %; EOSINOPHILS # (AUTO) 0.1 10^3/uL (0.0-0.7); HGB - HEMOGLOBIN 8.8 g/dL (12.0-16.0); LYMPHOCYTES # (AUTO) 1.2 10^3/uL (1.5-3.5); LYMPHOCYTES % (AUTO) 24.8 %; MEAN CORPUSCULAR HEMOGLOBIN 32.1 pg (27.0-31.0); MEAN CORPUSCULAR HGB CONC 31.4 g/dL (32.0-36.0); MEAN CORPUSCULAR VOLUME 102.2 fL (81.0-99.0); MEAN PLATELET VOLUME 9.1 fL (7.9-10.8); MONOCYTES # (AUTO) 0.5 10^3/uL (0.0-1.0); MONOCYTES % (AUTO) 9.8 %; NEUTROPHILS # (AUTO) 3.1 10^3/uL (1.5-6.6); NEUTROPHILS % (AUTO) 62.8 %; PLT - PLATELET COUNT 165 10^3/uL (130-450); RED BLOOD COUNT 2.74 10^6/uL (4.20-5.40); RED CELL DISTRIBUTION WIDTH 14.8 % (12.0-15.0)
[2024-05-27 05:13] LABS: DIGOXIN 2.8 ng/mL; POTASSIUM 4.3 mmol/L (3.5-4.5)
[2024-05-27 05:31] LABS: CALCIUM 8.4 mg/dL (8.5-10.3); CREATININE 1.3 mg/dL (0.6-1.3); POTASSIUM 4.3 mmol/L (3.5-4.5)
--- NOTE | 2024-05-27 08:56 | PROVIDER PROGRESS NOTE ---
Subjective Prog Note Date Prog Note Date: 05/27/24 Prog Note Time: 08:53 Subjective Pt reports feeling: No change Subjective: Katie is awake and alert, sitting up in bed after just finishing breakfast. She says the coffee and food are excellent here, she has no complaints. She feels the same, no pain or concerns. She slept well last night. She does note she is about ready to go home, "as soon as they're done with me". She is comfortable but since she has been here a few days now she's about ready to head home. She has no chest pain, shortness of breath, coughing, abdominal discomfort, headache. She does have increased bilateral LE edema, +4 pitting up to both thighs. Skin is warm and dry. Normal ankle ROM. 1400: rounding with Landy Bee PA-C. Patient and her are present in the room, Katie is laying on her back, propped up in bed with both feet elevated. She is good spirits, reports feeling "a little tired". PE negative except for bilateral LE +4 pitting edema. Katie and her are both amenable to going to rehab before going home so that she can get stronger. Her is unable to assist her alone and they agree it is better to do rehab first so she is stronger and will be safer once she is home. No questions or concerns at this time. Current Medications Current Medications Current Medications: Current Medications Generic Name Dose Route Start Last Admin Trade Name Freq PRN Reason Stop Dose Admin Acetaminophen 650 mg 05/24/24 20:59 Acetaminophen 325 Mg Tablet PO Q4HR PRN Pain 1 to 4, or Fever Bumetanide 1 mg 05/26/24 09:00 05/26/24 08:23 Bumetanide 1 Mg/4 Ml Vial IVP 1 mg DAILY TORIBIO Administration Carvedilol 25 mg 05/24/24 21:00 05/27/24 08:19 Carvedilol 12.5 Mg Tablet PO 25 mg BID TORIBIO Administration Enoxaparin Sodium 30 mg 05/25/24 09:00 05/27/24 08:19 Enoxaparin 30 Mg/0.3 Ml Syringe SUBQ 30 mg DAILY TORIBIO Administration Multi-Ingredient Ointment 1 applic 05/24/24 22:09 Zinc Oxide 20% Oint 30 Gm Tube TOP PRN PRN Skin Care Ondansetron HCl 4 mg 05/24/24 20:59 Ondansetron Odt 4 Mg Tablet TL Q6HR PRN Nausea / Vomiting Ondansetron HCl 4 mg 05/24/24 20:59 Ondansetron 4 Mg/2 Ml Vial IVP Q6HR PRN Nausea / Vomiting Polyethylene Glycol 17 gm 05/25/24 08:00 05/27/24 08:19 Polyethylene Glycol 3350 17 Gm Packet PO 17 gm DAILY TORIBIO Administration Sodium Chloride 10 ml 05/24/24 20:59 Sodium Chloride Flush 0.9% 10 Ml Syringe IVP PRN PRN NEEDED PER PROVIDER ORDERS Sodium Chloride 10 ml 05/25/24 01:00 05/27/24 08:19 Sodium Chloride Flush 0.9% 10 Ml Syringe IVP 10 ml 0100,0900,1700 TORIBIO Administration Spironolactone 25 mg 05/24/24 20:59 Spironolactone 25 Mg Tablet PO Q OTHER DAY TORIBIO Objective Vital Signs/Intake & Output Reviewed Vital Signs: Yes Vital Signs: Vital Signs x48h Temp Pulse Resp BP Pulse Ox 05/27/24 07:20 36.5 C 62 16 124/50 L 95 05/27/24 04:13 37.0 C 80 18 117/71 95 Intake & Output: Intake & Output 05/24/24 05/25/24 05/26/24 05/27/24 23:59 23:59 23:59 23:59 Intake Total 150 / 150 990 / 990 938 / 938 Output Total 1050 / 1050 1250 / 1250 350 / 350 Balance 150 / 150 -60 / -60 -312 / -312 -350 / -350 Weight (kg) 70.5 kg 69 kg Objective General Appearance: positive No acute distress and Alert Eyes Bilateral: positive PERRL ENT: positive Dry mucous membranes Neck: positive Nml inspection and Trachea midline; negative No JVD (mild JVD, decreased from yesterday) Respiratory: positive Chest non-tender, No respiratory distress and Breath sounds nml; negative Wheezes, Rales or Rhonchi Cardiovascular: positive Irregularly irregular and JVD present Abdomen: positive Non-tender and Nml bowel sounds Back: positive Nml inspection Skin: positive Color nml Extremities: positive Full ROM, Pedal edema and Other (+4 pitting edema, bilateral LE up to thighs) Neurologic/Psychiatric: positive Oriented x3, CN's nml (2-12), Motor nml, Sensation nml and Mood/affect nml Lab Results 05/27/24 04:38 05/27/24 08:40 Other Labs: Lab Results x24hrs 05/27/24 05/27/24 05/27/24 Range/Units 04:38 04:38 00:26 WBC 5.0 (4.8-10.8) x10^3/uL RBC 2.74 L (4.20-5.40) 10^6/uL Hgb 8.8 L (12.0-16.0) g/dL Hct 28.0 L (37.0-47.0) % MCV 102.2 H (81.0-99.0) fL MCH 32.1 H (27.0-31.0) pg MCHC 31.4 L (32.0-36.0) g/dL RDW 14.8 (12.0-15.0) % Plt Count 165 (130-450) 10^3/uL MPV 9.1 (7.9-10.8) fL Neut # (Auto) 3.1 (1.5-6.6) 10^3/uL Lymph # (Auto) 1.2 L (1.5-3.5) 10^3/uL [place] # (Auto) 0.5 (0.0-1.0) 10^3/uL Eos # (Auto) 0.1 (0.0-0.7) 10^3/uL Baso # (Auto) 0.0 (0.0-0.1) 10^3/uL Absolute Nucleated RBC 0.00 x10^3/uL Nucleated RBC % 0.0 /100WBC Sodium 134 L (135-145) mmol/L Potassium 4.3 4.3 4.4 (3.5-4.5) mmol/L Chloride 98 L (101-111) mmol/L Carbon Dioxide 29 (21-32) mmol/L Anion Gap 7.0 (6-13) BUN 60 H (6-20) mg/dL Creatinine 1.3 (0.6-1.3) mg/dL Estimated GFR (MDRD) 39 L (>89) Glucose 91 (74-104) mg/dL Calcium 8.4 L (8.5-10.3) mg/dL Last Dose Date 05-25-24 05-25-24 Last Dose Time 0900 0900 Digoxin 2.8 2.6 ng/mL 05/26/24 05/26/24 05/26/24 Range/Units 20:39 16:57 12:57 WBC (4.8-10.8) x10^3/uL RBC (4.20-5.40) 10^6/uL Hgb (12.0-16.0) g/dL Hct (37.0-47.0) % MCV (81.0-99.0) fL MCH (27.0-31.0) pg MCHC (32.0-36.0) g/dL RDW (12.0-15.0) % Plt Count (130-450) 10^3/uL MPV (7.9-10.8) fL Neut # (Auto) (1.5-6.6) 10^3/uL Lymph # (Auto) (1.5-3.5) 10^3/uL [place] # (Auto) (0.0-1.0) 10^3/uL Eos # (Auto) (0.0-0.7) 10^3/uL Baso # (Auto) (0.0-0.1) 10^3/uL Absolute Nucleated RBC x10^3/uL Nucleated RBC % /100WBC Sodium (135-145) mmol/L Potassium 4.5 4.3 4.1 (3.5-4.5) mmol/L Chloride (101-111) mmol/L Carbon Dioxide (21-32) mmol/L Anion Gap (6-13) BUN (6-20) mg/dL Creatinine (0.6-1.3) mg/dL Estimated GFR (MDRD) (>89) Glucose (74-104) mg/dL Calcium (8.5-10.3) mg/dL Last Dose Date 05/25/24 05/25/24 UNK Last Dose Time 11:59 11:59 UNK Digoxin 3.0 H* 2.9 2.9 ng/mL 05/26/24 Range/Units 08:45 WBC (4.8-10.8) x10^3/uL RBC (4.20-5.40) 10^6/uL Hgb (12.0-16.0) g/dL Hct (37.0-47.0) % MCV (81.0-99.0) fL MCH (27.0-31.0) pg MCHC (32.0-36.0) g/dL RDW (12.0-15.0) % Plt Count (130-450) 10^3/uL MPV (7.9-10.8) fL Neut # (Auto) (1.5-6.6) 10^3/uL Lymph # (Auto) (1.5-3.5) 10^3/uL [place] # (Auto) (0.0-1.0) 10^3/uL Eos # (Auto) (0.0-0.7) 10^3/uL Baso # (Auto) (0.0-0.1) 10^3/uL Absolute Nucleated RBC x10^3/uL Nucleated RBC % /100WBC Sodium (135-145) mmol/L Potassium 4.2 (3.5-4.5) mmol/L Chloride (101-111) mmol/L Carbon Dioxide (21-32) mmol/L Anion Gap (6-13) BUN (6-20) mg/dL Creatinine (0.6-1.3) mg/dL Estimated GFR (MDRD) (>89) Glucose (74-104) mg/dL Calcium (8.5-10.3) mg/dL Last Dose Date UNK Last Dose Time UNK Digoxin 3.4 H* ng/mL ABX Reporting Has patient been on IV antibiotics over the past 48 hours?: No Assessment/Plan Problem List (1) Digoxin toxicity: Impression: Digoxin level at 2.9 this AM, within normal limits, 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 Electrolytes improved on BMP taken this AM. Per Poison Control recommendation, we will continue checking Digoxin and potassium levels q12hrs. Qualifiers: Encounter type: initial encounter Injury intent: accidental or unintentional Qualified Code(s): T46.0X1A - Poisoning by cardiac-stimulant glycosides and drugs of similar action, accidental (unintentional), initial encounter (2) Acute exacerbation of chronic heart failure: Impression: Continuing pitting edema in both LE. JVD improved from yesterday. No SOB, chest pain, cough. We will continue home medications. (3) Acute kidney injury superimposed on CKD: Impression: Creatinine at 39 and BUN at 60 on BMP taken this AM, returned to baseline kidney function. We will continue Bumex.
[2024-05-27 09:14] LABS: DIGOXIN 2.9 ng/mL; POTASSIUM 4.4 mmol/L (3.5-4.5)
[2024-05-27] MEDS: ZINC OXIDE 20% OINT 30 GM TUBE TOP PRN (10:31)
[2024-05-27 14:06] LABS: B. PARAPERTUSSIS- RESP PCR PAN NOT DETECTED; B. PERTUSSIS- RESP PCR PANEL NOT DETECTED; C. PNEUMONIAE- RESP PCR PANEL NOT DETECTED; CORONAVIRUS 229E-RESP PCR NOT DETECTED; CORONAVIRUS HKU1-RESP PCR NOT DETECTED; CORONAVIRUS NL63-RESP PCR NOT DETECTED; CORONAVIRUS OC43-RESP PCR NOT DETECTED; HUMAN METAPNEUMOVIRUS NOT DETECTED; INFLUENZA A- RESP PCR PANEL NOT DETECTED; INFLUENZA B - RESP PCR PANEL NOT DETECTED; M. PNEUMONIAE- RESP PCR PANEL NOT DETECTED; PARAINFLUENZA VIRUS 1 NOT DETECTED; PARAINFLUENZA VIRUS 2 NOT DETECTED; PARAINFLUENZA VIRUS 4 NOT DETECTED; RHINOVIRUS/ENTEROVIRUS NOT DETECTED; RSV- RESP PCR PANEL NOT DETECTED; SARS-CoV-2 -RESP PCR PANEL NOT DETECTED
[2024-05-27] MEDS: ACETAMINOPHEN 325 MG TABLET PO PRN (16:15)
[2024-05-27] MEDS: BUMETANIDE 1 MG/4 ML VIAL IVP ONE (16:17)
[2024-05-27] MEDS: ALBUMIN 25% 12.5 GM/50 ML VIAL IV STA (16:31)
[2024-05-27] MEDS: MULTIVITAMIN W/MINERALS TABLET PO SCH (16:52)
[2024-05-27] MEDS: LIDOCAINE PATCH 4% TOP SCH (18:45)
[2024-05-27 20:24] LABS: BUN - BLOOD UREA NITROGEN 62 mg/dL (6-20); CALCIUM 8.2 mg/dL (8.5-10.3); CARBON DIOXIDE - CO2 32 mmol/L (21-32); CHLORIDE 97 mmol/L (101-111); CREATININE 1.3 mg/dL (0.6-1.3); DIGOXIN 2.1 ng/mL; GFR - MDRD 39 (>89); GLUCOSE 132 mg/dL (74-104); POTASSIUM 4.2 mmol/L (3.5-4.5); SODIUM 134 mmol/L (135-145)
[2024-05-28 06:01] LABS: BASOPHILS % (AUTO) 0.6 %; EOSINOPHILS # (AUTO) 0.1 10^3/uL (0.0-0.7); EOSINOPHILS % (AUTO) 2.3 %; HGB - HEMOGLOBIN 8.5 g/dL (12.0-16.0); LYMPHOCYTES # (AUTO) 1.3 10^3/uL (1.5-3.5); LYMPHOCYTES % (AUTO) 27.2 %; MEAN CORPUSCULAR HEMOGLOBIN 32.2 pg (27.0-31.0); MEAN CORPUSCULAR HGB CONC 31.5 g/dL (32.0-36.0); MEAN CORPUSCULAR VOLUME 102.3 fL (81.0-99.0); MEAN PLATELET VOLUME 9.5 fL (7.9-10.8); MONOCYTES # (AUTO) 0.4 10^3/uL (0.0-1.0); MONOCYTES % (AUTO) 8.9 %; NEUTROPHILS # (AUTO) 2.9 10^3/uL (1.5-6.6); NEUTROPHILS % (AUTO) 60.4 %; PLT - PLATELET COUNT 155 10^3/uL (130-450); RED BLOOD COUNT 2.64 10^6/uL (4.20-5.40); RED CELL DISTRIBUTION WIDTH 14.8 % (12.0-15.0); WHITE BLOOD COUNT 4.9 x10^3/uL (4.8-10.8)
[2024-05-28 06:21] LABS: CALCIUM 8.1 mg/dL (8.5-10.3); CREATININE 1.2 mg/dL (0.6-1.3); POTASSIUM 4.1 mmol/L (3.5-4.5)
[2024-05-28 06:38] LABS: INR 2.8 (0.8-1.2); PT - PROTHROMBIN TIME 28.8 secs (9.9-12.6)
[2024-05-28 08:22] LABS: BUN - BLOOD UREA NITROGEN 57 mg/dL (6-20); CALCIUM 8.6 mg/dL (8.5-10.3); CARBON DIOXIDE - CO2 32 mmol/L (21-32); CHLORIDE 99 mmol/L (101-111); CREATININE 1.2 mg/dL (0.6-1.3); GFR - MDRD 42 (>89); GLUCOSE 88 mg/dL (74-104); POTASSIUM 4.2 mmol/L (3.5-4.5); SODIUM 136 mmol/L (135-145)
--- NOTE | 2024-05-28 08:56 | PROVIDER PROGRESS NOTE ---
Subjective Prog Note Date Prog Note Date: 05/28/24 Prog Note Time: 08:53 Subjective Pt reports feeling: No change Subjective: Katie is resting comfortable on her back in bed. She states she slept very well and enjoyed her breakfast. She denies chest pain, shortness of breath, wheezing, coughing, abdominal discomfort. Her legs remain extremely swollen, right more than left. Normal ankle ROM bilaterally. She recalls long history of lower extremity lymphedema, she previously wore compression stocking with good improvement. She stopped wearing compression stockings when she retired. Current Medications Current Medications Current Medications: Current Medications Generic Name Dose Route Start Last Admin Trade Name Freq PRN Reason Stop Dose Admin Acetaminophen 650 mg 05/24/24 20:59 05/27/24 16:15 Acetaminophen 325 Mg Tablet PO 650 mg Q4HR PRN Administration Pain 1 to 4, or Fever Bumetanide 1 mg 05/26/24 09:00 05/28/24 08:30 Bumetanide 1 Mg/4 Ml Vial IVP 1 mg DAILY TORIBIO Administration Carvedilol 25 mg 05/24/24 21:00 05/28/24 08:30 Carvedilol 12.5 Mg Tablet PO 25 mg BID TORIBIO Administration Enoxaparin Sodium 30 mg 05/25/24 09:00 05/28/24 08:30 Enoxaparin 30 Mg/0.3 Ml Syringe SUBQ 30 mg DAILY TORIBIO Administration Lidocaine 1 patch 05/27/24 17:40 05/28/24 08:31 Lidocaine Patch 4% TOP 1 patch DAILY TORIBIO Administration Multi-Ingredient Ointment 1 applic 05/24/24 22:09 05/27/24 10:31 Zinc Oxide 20% Oint 30 Gm Tube TOP 1 applic PRN PRN Administration Skin Care Multivitamins/Minerals 1 tab 05/27/24 17:00 05/28/24 08:30 Multivitamin W/Minerals Tablet PO 1 tab DAILYWM TORIBIO Administration Ondansetron HCl 4 mg 05/24/24 20:59 Ondansetron Odt 4 Mg Tablet TL Q6HR PRN Nausea / Vomiting Ondansetron HCl 4 mg 05/24/24 20:59 Ondansetron 4 Mg/2 Ml Vial IVP Q6HR PRN Nausea / Vomiting Polyethylene Glycol 17 gm 05/25/24 08:00 05/28/24 08:31 Polyethylene Glycol 3350 17 Gm Packet PO 17 gm DAILY TORIBIO Administration Sodium Chloride 10 ml 05/24/24 20:59 Sodium Chloride Flush 0.9% 10 Ml Syringe IVP PRN PRN NEEDED PER PROVIDER ORDERS Sodium Chloride 10 ml 05/25/24 01:00 05/28/24 08:32 Sodium Chloride Flush 0.9% 10 Ml Syringe IVP 10 ml 0100,0900,1700 TORIBIO Administration Spironolactone 25 mg 05/24/24 20:59 Spironolactone 25 Mg Tablet PO Q OTHER DAY TORIBIO Objective Vital Signs/Intake & Output Reviewed Vital Signs: Yes Vital Signs: Vital Signs x48h Temp Pulse Pulse Resp BP Pulse Ox O2 Flow Rate 05/28/24 08:05 36.2 C L 72 19 133/56 H 96 0 05/28/24 05:00 36.6 C 84 16 124/75 97 Intake & Output: Intake & Output 05/25/24 05/26/24 05/27/24 05/28/24 23:59 23:59 23:59 23:59 Intake Total 990 / 990 938 / 938 1140 / 1140 200 / 200 Output Total 1050 / 1050 1250 / 1250 1050 / 1050 250 / 250 Balance -60 / -60 -312 / -312 90 / 90 -50 / -50 Weight (kg) 69 kg Objective General Appearance: positive No acute distress and Alert Eyes Bilateral: positive Normal inspection ENT: positive Dry mucous membranes Neck: positive Nml inspection Cardiovascular: positive Irregularly irregular and JVD present Abdomen: positive Non-tender and Nml bowel sounds Skin: positive Color nml Extremities: positive Non-tender, Pedal edema and Other (+4 pitting edema bilateral LE); negative Calf tenderness Neurologic/Psychiatric: positive Oriented x3, CN's nml (2-12), Motor nml, Sensation nml and Mood/affect nml Lab Results 05/28/24 04:54 05/28/24 08:04 Other Labs: Lab Results x24hrs 05/28/24 05/28/24 05/27/24 Range/Units 08:04 04:54 20:05 WBC 4.9 (4.8-10.8) x10^3/uL RBC 2.64 L (4.20-5.40) 10^6/uL Hgb 8.5 L (12.0-16.0) g/dL Hct 27.0 L (37.0-47.0) % MCV 102.3 H (81.0-99.0) fL MCH 32.2 H (27.0-31.0) pg MCHC 31.5 L (32.0-36.0) g/dL RDW 14.8 (12.0-15.0) % Plt Count 155 (130-450) 10^3/uL MPV 9.5 (7.9-10.8) fL Neut # (Auto) 2.9 (1.5-6.6) 10^3/uL Lymph # (Auto) 1.3 L (1.5-3.5) 10^3/uL Lares # (Auto) 0.4 (0.0-1.0) 10^3/uL Eos # (Auto) 0.1 (0.0-0.7) 10^3/uL Baso # (Auto) 0.0 (0.0-0.1) 10^3/uL Absolute Nucleated RBC 0.00 x10^3/uL Nucleated RBC % 0.0 /100WBC PT 28.8 H (9.9-12.6) secs INR 2.8 H (0.8-1.2) Sodium 136 135 134 L (135-145) mmol/L Potassium 4.2 4.1 4.2 (3.5-4.5) mmol/L Chloride 99 L 99 L 97 L (101-111) mmol/L Carbon Dioxide 32 31 32 (21-32) mmol/L Anion Gap 5.0 L 5.0 L 5.0 L (6-13) BUN 57 H 58 H 62 H (6-20) mg/dL Creatinine 1.2 1.2 1.3 (0.6-1.3) mg/dL Estimated GFR (MDRD) 42 L 42 L 39 L (>89) Glucose 88 87 132 H (74-104) mg/dL Calcium 8.6 8.1 L 8.2 L (8.5-10.3) mg/dL Nasal Adenovirus (PCR) Nasal B. parapertussis DNA (PCR) Nasal Coronavir 229E PCR Nasal Coronavir HKU1 PCR Nasal Coronavir NL63 PCR Nasal Coronavir OC43 PCR Nasal Enterovir/Rhinovir PCR Nasal Influenza B PCR Nasal Influenza A PCR Nasal Parainfluen 1 PCR Nasal Parainfluen 2 PCR Nasal Parainfluen 3 PCR Nasal Parainfluen 4 PCR Nasal RSV (PCR) Nasal B.pertussis DNA PCR Nasal C.pneumoniae (PCR) Gene Human Metapneumo PCR Nasal M.pneumoniae (PCR) Nasal SARS-CoV-2 (PCR) Last Dose Date UNKNOWN Last Dose Time UNKNOWN Digoxin 2.0 2.1 ng/mL 05/27/24 05/27/24 Range/Units 13:00 08:40 WBC (4.8-10.8) x10^3/uL RBC (4.20-5.40) 10^6/uL Hgb (12.0-16.0) g/dL Hct (37.0-47.0) % MCV (81.0-99.0) fL MCH (27.0-31.0) pg MCHC (32.0-36.0) g/dL RDW (12.0-15.0) % Plt Count (130-450) 10^3/uL MPV (7.9-10.8) fL Neut # (Auto) (1.5-6.6) 10^3/uL Lymph # (Auto) (1.5-3.5) 10^3/uL Lares # (Auto) (0.0-1.0) 10^3/uL Eos # (Auto) (0.0-0.7) 10^3/uL Baso # (Auto) (0.0-0.1) 10^3/uL Absolute Nucleated RBC x10^3/uL Nucleated RBC % /100WBC PT (9.9-12.6) secs INR (0.8-1.2) Sodium (135-145) mmol/L Potassium 4.4 (3.5-4.5) mmol/L Chloride (101-111) mmol/L Carbon Dioxide (21-32) mmol/L Anion Gap (6-13) BUN (6-20) mg/dL Creatinine (0.6-1.3) mg/dL Estimated GFR (MDRD) (>89) Glucose (74-104) mg/dL Calcium (8.5-10.3) mg/dL Nasal Adenovirus (PCR) NOT DETECTED Nasal B. parapertussis DNA (PCR) NOT DETECTED Nasal Coronavir 229E PCR NOT DETECTED Nasal Coronavir HKU1 PCR NOT DETECTED Nasal Coronavir NL63 PCR NOT DETECTED Nasal Coronavir OC43 PCR NOT DETECTED Nasal Enterovir/Rhinovir PCR NOT DETECTED Nasal Influenza B PCR NOT DETECTED Nasal Influenza A PCR NOT DETECTED Nasal Parainfluen 1 PCR NOT DETECTED Nasal Parainfluen 2 PCR NOT DETECTED Nasal Parainfluen 3 PCR NOT DETECTED Nasal Parainfluen 4 PCR NOT DETECTED Nasal RSV (PCR) NOT DETECTED Nasal B.pertussis DNA PCR NOT DETECTED Nasal C.pneumoniae (PCR) NOT DETECTED Gene Human Metapneumo PCR NOT DETECTED Nasal M.pneumoniae (PCR) NOT DETECTED Nasal SARS-CoV-2 (PCR) NOT DETECTED Last Dose Date UNKNOWN Last Dose Time UNKNOWN Digoxin 2.9 ng/mL ABX Reporting Has patient been on IV antibiotics over the past 48 hours?: No Assessment/Plan Problem List (1) Digoxin toxicity: Impression: Last digoxin level within therapeutic range at 2.0. Plan to discharge to SNF tomorrow. Qualifiers: Encounter type: initial encounter Injury intent: accidental or unintentional Qualified Code(s): T46.0X1A - Poisoning by cardiac-stimulant glycosides and drugs of similar action, accidental (unintentional), initial encounter (2) Acute exacerbation of chronic heart failure: Impression: Continued severe LE pitting edema. We have started KELLEE Hose for lower extremity edema to see if this can help to shift some of the retained fluid. (3) Acute kidney injury superimposed on CKD: Impression: Kidney function at baseline. We will continue daily chemistry checks.
[2024-05-28 20:51] LABS: BUN - BLOOD UREA NITROGEN 55 mg/dL (6-20); CALCIUM 8.2 mg/dL (8.5-10.3); CARBON DIOXIDE - CO2 32 mmol/L (21-32); CHLORIDE 98 mmol/L (101-111); CREATININE 1.3 mg/dL (0.6-1.3); DIGOXIN 1.5 ng/mL; GFR - MDRD 39 (>89); GLUCOSE 127 mg/dL (74-104); SODIUM 137 mmol/L (135-145)
[2024-05-29 06:05] LABS: BASOPHILS % (AUTO) 0.5 %; EOSINOPHILS # (AUTO) 0.1 10^3/uL (0.0-0.7); EOSINOPHILS % (AUTO) 3.2 %; HCT - HEMATOCRIT 26.4 % (37.0-47.0); HGB - HEMOGLOBIN 8.3 g/dL (12.0-16.0); LYMPHOCYTES # (AUTO) 1.2 10^3/uL (1.5-3.5); LYMPHOCYTES % (AUTO) 28.7 %; MEAN CORPUSCULAR HGB CONC 31.4 g/dL (32.0-36.0); MEAN CORPUSCULAR VOLUME 101.9 fL (81.0-99.0); MEAN PLATELET VOLUME 8.9 fL (7.9-10.8); MONOCYTES # (AUTO) 0.3 10^3/uL (0.0-1.0); NEUTROPHILS # (AUTO) 2.4 10^3/uL (1.5-6.6); NEUTROPHILS % (AUTO) 58.6 %; PLT - PLATELET COUNT 154 10^3/uL (130-450); RED BLOOD COUNT 2.59 10^6/uL (4.20-5.40); RED CELL DISTRIBUTION WIDTH 14.7 % (12.0-15.0); WHITE BLOOD COUNT 4.1 x10^3/uL (4.8-10.8)
[2024-05-29 06:25] LABS: CALCIUM 7.9 mg/dL (8.5-10.3); CREATININE 1.2 mg/dL (0.6-1.3)
[2024-05-29 08:44] VITALS: BP 133/59; TEMP 97.5; O2SAT 94
[2024-05-29 09:02] LABS: BUN - BLOOD UREA NITROGEN 50 mg/dL (6-20); CARBON DIOXIDE - CO2 33 mmol/L (21-32); CHLORIDE 100 mmol/L (101-111); CREATININE 1.1 mg/dL (0.6-1.3); DIGOXIN 1.6 ng/mL; GFR - MDRD 47 (>89); GLUCOSE 85 mg/dL (74-104); POTASSIUM 4.1 mmol/L (3.5-4.5); SODIUM 137 mmol/L (135-145)
--- NOTE | 2024-05-29 12:52 | Discharge Summary ---
"Discharge Summary Admit Date: 05/24/24 Discharge Date: 05/29/24 Discharging Provider: Landy Bee PA-C Primary Care Provider: TOM Meyers Code Status: Do Not Attempt Resuscitation DIAGNOSES Discharge Diagnoses with Status of Each Condition: Digoxin toxicity, resolved. This morning's digoxin level was 1.6. Acute exacerbation of congestive heart failure, resolved, patient's diuretic therapy changed. CUBA superimposed on CKD, creatinine back to baseline 1.1 on discharge. GFR is 47. HPI History of Present Illness: 88-year-old female PMH significant for CHF on torsemide and spironolactone at home. She has been in and out of the hospital for the past several months. She has history of medication noncompliance, is unsure if she is taking her spironolactone and torsemide. She has had difficulty walking and generalized weakness secondary to fluid overload. In the ER, she was noted to have an CUBA and a new requirement of 2 L O2. Her EGFR was 42 last month, now was 24. Hospitalist was contacted for observation for CHF exacerbation with reduction in kidney function CONSULTS | PROCEDURES Procedures: Chest x-ray on admission: Moderate cardiomegaly with interstitial prominence and bilateral pleural effusions supporting a diagnosis of CHF. HOSPITAL COURSE Hospital Course: (1) Digoxin toxicity: Last digoxin level within therapeutic range at 1.6. I have recommended that this patient discontinue digoxin until she is able to follow-up with her network specialist. Her network specialist is Dr. Joceline Whitley, [facility]. Qualifiers: Encounter type: initial encounter Injury intent: accidental or unintentional Qualified Code(s): T46.0X1A - Poisoning by cardiac-stimulant glycosides and drugs of similar action, accidental (unintentional), initial encounter (2) Acute exacerbation of chronic heart failure: She has a long history of lower extremity lymphedema. Her diuretic therapy on admission was torsemide 40 mg twice daily. She was given IV Bumex here which assisted in reducing her oxygen requirements from 2 L to room air. We have changed her diuretic therapy to Bumex 1 mg twice daily. Her potassium has remained stable potassium at discharge is 4.1. She is not currently on any potassium supplementation (3) Acute kidney injury superimposed on CKD: .Her creatinine was 2.0 on the date of admission. By hospital day 4 was decreased to 1.3 close to baseline. She is 1.1 on the day of discharge with an EGFR of 47.. ALLERGIES Allergies Allergy/AdvReac Type Severity Reaction Status Date / Time No Known Drug Allergies Allergy Verified 05/24/24 15:17 MEDICATIONS Ambulatory Orders Medication Instructions Recorded Confirmed bumetanide 1 mg tablet 1 mg PO BIDDIURETIC #60 tabs 05/25/24 acetaminophen 325 mg tablet 650 mg (2 x 325 mg) PO Q4HR PRN 05/29/24 Pain 1 to 4, or Fever #90 tabs calcium carbonate 600 mg PO DAILY #30 tabs 05/29/24 05/25/24 carvedilol 25 mg tablet (Coreg) 25 mg PO BID #60 tabs 05/29/24 05/25/24 dorzolamide 2 % eye drops 1 drp ophthalmic (eye) BID #10 mL 05/29/24 05/25/24 latanoprost 0.005 % eye drops 1 drp ophthalmic (eye) QPM #2.5 mL 05/29/24 05/25/24 lidocaine 4 % topical patch 1 patch topical DAILY #30 ea 05/29/24 multivitamin 1 tab PO DAILY #30 tabs 05/29/24 05/25/24 spironolactone 25 mg tablet 25 mg PO Q OTHER DAY #20 tabs 05/29/24 05/25/24 PHYSICAL EXAM AT DISCHARGE Physical Exam Other/Comments: General Appearance: positive No acute distress and Alert Eyes Bilateral: positive Normal inspection ENT: positive Dry mucous membranes Neck: positive Nml inspection Cardiovascular: positive Irregularly irregular and JVD present Abdomen: positive Non-tender and Nml bowel sounds Skin: positive Color nml Extremities: positive Non-tender, Pedal edema and Other (+4 pitting edema bilateral LE); negative Calf tenderness right medial calf wound is clean with very minimal drainage. We have been changing the dressing every other day a with packing and dry dressing. Neurologic/Psychiatric: positive Oriented x3, CN's nml (2-12), Motor nml, Sensation nml and Mood/affect nml LABS 05/29/24 05:40 05/29/24 08:39 FOLLOW UP Follow Up: [employer] [facility] as soon as available PCP when discharged from rehab Daily weights, BMP as appropriate TIME SPENT Time Spent in Discharge (Minutes): 45 Discharge Plan Discharge Patient Disposition: 03 SNF DC/Xfer Condition: Stable Medically Cleared Date:: 05/25/24 Prescriptions: New bumetanide 1 mg Tablet 1 mg PO BIDDIURETIC Qty: 60 0RF acetaminophen 325 mg Tablet 650 mg PO Q4HR PRN (Reason: Pain 1 to 4, or Fever) Qty: 90 0RF lidocaine 4 % Adhesive Patch,Medicated 1 patch topical DAILY Qty: 30 0RF Continued multivitamin Tablet 1 tab PO DAILY Qty: 30 0RF latanoprost 0.005 % drops 1 drp ophthalmic (eye) QPM Qty: 2.5 0RF Patient Comments: INSTILL 1 DROP INTO RIGHT EYE IN THE EVENING carvedilol [Coreg] 25 MG tablet 25 mg PO BID Qty: 60 0RF spironolactone 25 mg tablet 25 mg PO Q OTHER DAY Qty: 20 0RF Patient Comments: TAKE 1 TABLET BY MOUTH EVERY OTHER DAY. PLEASE COMPLETE THE LABS THAT YOUR PROVIDER HAS ORDERED. calcium carbonate 600 mg calcium (1,500 mg) tablet 600 mg PO DAILY Qty: 30 0RF dorzolamide 2 % drops 1 drp ophthalmic (eye) BID Qty: 10 0RF Patient Comments: Instill into right eye Discontinued torsemide 20 MG tablet 20 mg PO DAILY Patient Comments: TAKE 1 TABLET BY MOUTH ONCE DAILY (DIURETIC) Rx Instructions: for 15 days starting 02/25 digoxin 125 mcg (0.125 mg) tablet 0.125 mg PO DAILY Patient Comments: TAKE 1 TABLET BY MOUTH ONCE DAILY (PLEASE HAVE LABS DONE. THANK YOU!) losartan 100 mg tablet 100 mg PO DAILY Patient Comments: TAKE 1 TABLET BY MOUTH ONCE DAILY warfarin 5 mg tablet See Rx Instructions .ROUTE .COMPLEX Patient Comments: TAKE 1 TABLET BY MOUTH ONCE DAILY ON SAT,,, AND SATURDAY. TAKE 1/2 TABLET BY MOUTH ONCE DAILY ON SAT, , AND SAT OR DIRECTED Rx Instructions: TAKE 1 TABLET BY MOUTH ONCE DAILY ON SAT,,, AND SATURDAY. TAKE 1/2 TABLET BY MOUTH ONCE DAILY ON SAT, , AND SAT OR DIRECTED Activity Restrictions: No Restrictions Diet: Low Sodium Health Concerns: You were admitted for acute worsening of your congestive heart failure, which led to swelling in your legs and generalized weakness. You were found to also have an acute worsening of your kidney failure seen on lab results. We were able to restart your home medications, which got a lot of the fluid you had accumulated and your swelling has improved. Your lab results are also slowly improving back to your baseline kidney function. It is important to make sure that you take your prescribed medications daily as instructed by your primary care provider to prevent further worsening of your chronic conditions. We found that you have too much Digoxin in your system. We called Poison Control, and followed their recommendations. Discharge instructions: 1. We are stopping your Digoxin. Do not start taking this medication until you see your primary care provider. 2. We are replacing your Torsemide with Bumex. Stop taking the Torsemide. Start taking Bumex. . Stay on a low salt diet to decrease the amount of water that is retained. . Weigh yourself daily to check for water retention. If you gain more than 5 pounds, call your primary care provider. . Make appointment to see your primary care provider within the next two weeks. You should also follow-up with your network specialist. I would like you to not restart your warfarin until you speak with your heart doctor. I am concerned about your risk of falls and catastrophic bleeding from anticoagulation as recently your INR has been elevated. Print Language: Syriac Patient Instructions: Heart Failure Stand Alone Forms: SNF Discharge"
== END 2024-05-29 14:22 | DRG 292 ==
LOC: MS2 14:53 → ED 14:53 → MS2 20:56
PROVIDERS: ADMIT Nurse Practitioner Acute Care; ATTEND Nurse Practitioner Acute Care
DX: Z91.148 Patient's other noncompliance with medication regimen for other reason; N17.9 Acute kidney failure, unspecified; N18.9 Chronic kidney disease, unspecified; I50.9 Heart failure, unspecified; Z79.899 Other long term (current) drug therapy; I44.4 Left anterior fascicular block; D64.9 Anemia, unspecified; I49.3 Ventricular premature depolarization; R00.1 Bradycardia, unspecified; I48.91 Unspecified atrial fibrillation; T46.0X5A Adverse effect of cardiac-stimulant glycosides and drugs of similar action, initial encounter

== ENCOUNTER 2024-06-15 15:12 | Inpatient (IN) ==
--- NOTE | 2024-06-15 16:00 | ED Physician Documentation ---
History of Present Illness Stated complaint Stated Complaint: SYNCOPE/EDEMA Chief complaint Chief Complaint: Ext Problem History obtained from History obtained from: Patient and EMS Additonal information Additional information: 88-year-old female lives at [facility]. DNR, comfort care. History of CHF. Reportedly has had increasing leg swelling over the past several weeks. Today the staff states that she was less responsive and sleeping more than usual. Patient states that she feels "fine". When asked if she is sleeping more than usual she stated "probably". Denies any chest pain, shortness of breath, cough, fevers, congestion. No nausea or vomiting. No abdominal pain. No diarrhea or constipation. No pain or burning with urination. Denies any falls. No headache, neck or back pain. Rafa Coma Scale Assess Eye opening: Spontaneous Verbal response: Oriented Motor response: Obeys Commands Total score: 15 Review of Systems Constitutional Denies: Fever or Chills Cardiovascular Denies: chest pain or shortness of breath with exertion Respiratory Denies: Shortness of breath or Cough Gastrointestinal Denies: Nausea or Vomiting Meds/Allgy Home Medications Ambulatory Orders Medication Instructions Recorded Confirmed bumetanide 1 mg tablet 1 mg PO BIDDIURETIC #60 tabs 05/25/24 acetaminophen 325 mg tablet 650 mg (2 x 325 mg) PO Q4HR PRN 05/29/24 Pain 1 to 4, or Fever #90 tabs calcium carbonate 600 mg PO DAILY #30 tabs 05/29/24 05/25/24 carvedilol 25 mg tablet (Coreg) 25 mg PO BID #60 tabs 05/29/24 05/25/24 dorzolamide 2 % eye drops 1 drp ophthalmic (eye) BID #10 mL 05/29/24 05/25/24 latanoprost 0.005 % eye drops 1 drp ophthalmic (eye) QPM #2.5 mL 05/29/24 05/25/24 lidocaine 4 % topical patch 1 patch topical DAILY #30 ea 05/29/24 multivitamin 1 tab PO DAILY #30 tabs 05/29/24 05/25/24 spironolactone 25 mg tablet 25 mg PO Q OTHER DAY #20 tabs 05/29/24 05/25/24 Allergies Allergies Allergy/AdvReac Type Severity Reaction Status Date / Time No Known Drug Allergies Allergy Verified 06/15/24 15:16 PFSH Active Problems All Active Problems (Updated 06/15/24 @ 22:36 by Bryan Hogue MD) Acute kidney injury (Acute) Hypotension (Acute) Hyponatremia (Acute) Acute alteration in mental status (Acute) UTI (urinary tract infection) (Acute) Pulmonary edema (Acute) Acute exacerbation of CHF (congestive heart failure) (Acute) Elevated troponin (Acute) Diastolic heart failure (Acute) Chronic atrial fibrillation (Acute) CHF (congestive heart failure) (Acute) Infected hematoma (Acute) Leg swelling (Acute) Healthcare maintenance (Acute) History of endometrial cancer (Acute) History of colon cancer (Acute) Anemia (Acute) Chronic lymphocytic leukemia (Acute) Hypercoagulability due to atrial fibrillation (Acute) CHF (congestive heart failure), NYHA class I (Acute) Atrial fibrillation (Acute) Lymphedema (Acute) Localized swelling of right lower extremity (Acute) Cellulitis (Acute) Pleural effusion (Acute) Intramural aortic hematoma (Acute) Chest pain (Acute) Back pain (Acute) Medical History Medical History (Updated 06/15/24 @ 22:36 by Bryan Hogue MD) Lymphedema Family History Family History Other Family history of cerebrovascular accident (CVA) in father Family history of sudden cardiac in mother Social History Social History Smoking Status: Never smoker Second hand tobacco smoke exposure: No Do you dip or chew tobacco?: No Do you vape?: No Relationship: Level: Assisted Home Mobility Equipment: Cane and Walker Do you feel safe in your home environment?: Yes Suffered physical, verbal, emotional, or financial abuse?: No History of Abuse: No Substance Use: denies use POLST Patient has POLST: No Exam Constitutional normal general appearance and no apparent distress HENMT normocephalic, head/scalp atraumatic and oropharynx normal Eyes PERRL Neck/C-Spine trachea midline Chest inspection of chest normal and palpation of chest normal Respiratory breath sounds equal bilaterally and normal respiratory effort Crackles bilaterally Cardiovascular normal heart rate noted and regular rhythm noted Gastrointestinal abdomen soft to palpation, nontender to palpation and nondistended Extremities Significant bilateral pitting edema. No erythema or signs of infection. Neurology GCS 15 Psychiatry mental status grossly normal and oriented x3 Skin skin color normal and no rash Results Vitals Vitals: Vital Signs - 24 hr 06/15/24 15:16 06/15/24 17:35 Temperature 36.9 C Temperature Source Tympanic Pulse Rate 76 65 Respiratory Rate 20 20 Blood Pressure 104/60 100/47 L O2 Saturation 97 96 O2 Source Room air Room air Pain Intensity 4 0 Oxygen O2 Source Room air Labs Labs: Laboratory Tests 06/15/24 06/15/24 06/15/24 15:56 16:04 18:25 WBC 7.7 RBC 2.55 L Hgb 8.2 L Hct 25.0 L MCV 98.0 MCH 32.2 H MCHC 32.8 RDW 14.9 Plt Count 152 MPV 9.1 Neut # (Auto) 6.7 H Lymph # (Auto) 0.7 L Imperial # (Auto) 0.2 Eos # (Auto) 0.0 Baso # (Auto) 0.0 Absolute Nucleated RBC 0.00 Nucleated RBC % 0.0 Sodium 130 L Potassium 4.3 Chloride 96 L Carbon Dioxide 26 Anion Gap 8.0 BUN 57 H Creatinine 2.0 H Estimated GFR (MDRD) 24 L Glucose 100 Lactic Acid Calcium 8.3 L Total Bilirubin 0.8 AST 16 ALT 13 Alkaline Phosphatase 69 B-Natriuretic Peptide 851 H Total Protein 6.0 L Albumin 2.3 L Globulin 3.7 Albumin/Globulin Ratio 0.6 L Urine Color LIGHT YELLOW Urine Clarity TURBID Urine pH Not Reportable Ur Specific [place] Not Reportable Urine Protein Not Reportable Urine Glucose (UA) Not Reportable Urine Ketones Not Reportable Urine Occult Blood Not Reportable Urine Nitrite Not Reportable Urine Bilirubin Not Reportable Urine Urobilinogen Not Reportable Ur Leukocyte Esterase Urine RBC 6-10 H Urine WBC >25 H Urine WBC Clumps PRESENT Ur Epithelial Cells MOD Renal Tubular H Ur Squamous Epith Cells Urine Bacteria Ur Microscopic Review Urine Culture Comments Nasal Adenovirus (PCR) NOT DETECTED Nasal B. parapertussis DNA (PCR) NOT DETECTED Nasal Coronavir 229E PCR NOT DETECTED Nasal Coronavir HKU1 PCR NOT DETECTED Nasal Coronavir NL63 PCR NOT DETECTED Nasal Coronavir OC43 PCR NOT DETECTED Nasal Enterovir/Rhinovir PCR NOT DETECTED Nasal Influenza B PCR NOT DETECTED Nasal Influenza A PCR NOT DETECTED Nasal Parainfluen 1 PCR NOT DETECTED Nasal Parainfluen 2 PCR NOT DETECTED Nasal Parainfluen 3 PCR NOT DETECTED Nasal Parainfluen 4 PCR NOT DETECTED Nasal RSV (PCR) NOT DETECTED Nasal B.pertussis DNA PCR NOT DETECTED Nasal C.pneumoniae (PCR) NOT DETECTED Gene Human Metapneumo PCR NOT DETECTED Nasal M.pneumoniae (PCR) NOT DETECTED Nasal SARS-CoV-2 (PCR) NOT DETECTED 06/15/24 06/15/24 18:25 20:01 WBC RBC Hgb Hct MCV MCH MCHC RDW Plt Count MPV Neut # (Auto) Lymph # (Auto) Imperial # (Auto) Eos # (Auto) Baso # (Auto) Absolute Nucleated RBC Nucleated RBC % Sodium Potassium Chloride Carbon Dioxide Anion Gap BUN Creatinine Estimated GFR (MDRD) Glucose Lactic Acid 1.0 Calcium Total Bilirubin AST ALT Alkaline Phosphatase B-Natriuretic Peptide Total Protein Albumin Globulin Albumin/Globulin Ratio Urine Color Urine Clarity Urine pH Ur Specific [place] Urine Protein Urine Glucose (UA) Urine Ketones Urine Occult Blood Urine Nitrite Urine Bilirubin Urine Urobilinogen Ur Leukocyte Esterase Urine RBC Urine WBC Urine WBC Clumps Ur Epithelial Cells MOD Transitional H Ur Squamous Epith Cells MANY Squamous H Urine Bacteria Many H Ur Microscopic Review INDICATED Urine Culture Comments NOT INDICATED Nasal Adenovirus (PCR) Nasal B. parapertussis DNA (PCR) Nasal Coronavir 229E PCR Nasal Coronavir HKU1 PCR Nasal Coronavir NL63 PCR Nasal Coronavir OC43 PCR Nasal Enterovir/Rhinovir PCR Nasal Influenza B PCR Nasal Influenza A PCR Nasal Parainfluen 1 PCR Nasal Parainfluen 2 PCR Nasal Parainfluen 3 PCR Nasal Parainfluen 4 PCR Nasal RSV (PCR) Nasal B.pertussis DNA PCR Nasal C.pneumoniae (PCR) Gene Human Metapneumo PCR Nasal M.pneumoniae (PCR) Nasal SARS-CoV-2 (PCR) Rads (name of study) cxr: Relevant Findings:: Final report received PD Medical Decision Making ED course Complexity details: reviewed results, re-evaluated patient, considered differential and d/w patient ED course: Patient found to have a UTI as well as heart failure. Has pulmonary edema, borderline hypoxia, does drop to the mid 80s with any movement. She is more somnolent than usual. Also has a acute kidney injury, creatinine elevated off baseline. Baseline is around 1.2-1.3. Currently at 2.0. Given Bumex IV. Will place the patient observation for CHF exacerbation, UTI, altered mental status and CUBA. Discussed the case with the hospitalist who accepts This document was made in part using voice recognition software. While efforts are made to proofread this document, sound alike and grammatical errors may occur. Discharge Plan Discharge Patient Disposition: ED Place in Observation Condition: Stable Clinical Impression: Acute alteration in mental status, Acute kidney injury Acute exacerbation of CHF (congestive heart failure) Qualifiers: Heart failure type: unspecified Qualified Code(s): I50.9 - Heart failure, unspecified Pulmonary edema Qualifiers: Chronicity: acute Qualified Code(s): J81.0 - Acute pulmonary edema UTI (urinary tract infection) Qualifiers: Urinary tract infection type: acute cystitis Hematuria presence: without hematuria Qualified Code(s): N30.00 - Acute cystitis without hematuria Interventions: ED Admission Assessment Last Done: 06/15/24 20:48
[2024-06-15 16:10] LABS: BASOPHILS % (AUTO) 0.3 %; EOSINOPHILS % (AUTO) 0.1 %; HGB - HEMOGLOBIN 8.2 g/dL (12.0-16.0); LYMPHOCYTES # (AUTO) 0.7 10^3/uL (1.5-3.5); LYMPHOCYTES % (AUTO) 9.5 %; MEAN CORPUSCULAR HEMOGLOBIN 32.2 pg (27.0-31.0); MEAN CORPUSCULAR HGB CONC 32.8 g/dL (32.0-36.0); MEAN PLATELET VOLUME 9.1 fL (7.9-10.8); MONOCYTES # (AUTO) 0.2 10^3/uL (0.0-1.0); NEUTROPHILS # (AUTO) 6.7 10^3/uL (1.5-6.6); NEUTROPHILS % (AUTO) 86.1 %; PLT - PLATELET COUNT 152 10^3/uL (130-450); RED BLOOD COUNT 2.55 10^6/uL (4.20-5.40); RED CELL DISTRIBUTION WIDTH 14.9 % (12.0-15.0); WHITE BLOOD COUNT 7.7 x10^3/uL (4.8-10.8)
--- NOTE | 2024-06-15 16:21 | XRAY Report ---
PROCEDURE: XR Chest 1V INDICATIONS: cough TECHNIQUE: One view of the chest was acquired. COMPARISON: 05/24/2024. FINDINGS: Surgical changes and devices: Midline sternotomy, valvuloplasty, thoracic and a vascular aortic repa ir. Lungs and pleura: Interstitial pulmonary edema. Bilateral pleural effusions and bibasilar atelectasi s. Mediastinum: Mediastinal contours appear normal. Severe cardiomegaly. Bones and chest wall: No suspicious bony lesions. Overlying soft tissues appear unremarkable. IMPRESSION: Congestive heart failure exacerbation. Reviewed by: Mauro Ferrer MD on 06/15/2024 4:20 PM PDT Approved by: Mauro Ferrer MD on 06/15/2024 4:20 PM PDT Station ID: [id number]
[2024-06-15 16:29] LABS: ALBUMIN 2.3 g/dL (3.2-5.5); ALBUMIN/GLOBULIN RATIO 0.6 (1.0-2.2); BILIRUBIN,TOTAL 0.8 mg/dL (0.2-1.0); CALCIUM 8.3 mg/dL (8.5-10.3); POTASSIUM 4.3 mmol/L (3.5-4.5)
[2024-06-15 17:00] LABS: B. PARAPERTUSSIS- RESP PCR PAN NOT DETECTED; B. PERTUSSIS- RESP PCR PANEL NOT DETECTED; C. PNEUMONIAE- RESP PCR PANEL NOT DETECTED; CORONAVIRUS 229E-RESP PCR NOT DETECTED; CORONAVIRUS HKU1-RESP PCR NOT DETECTED; CORONAVIRUS NL63-RESP PCR NOT DETECTED; CORONAVIRUS OC43-RESP PCR NOT DETECTED; HUMAN METAPNEUMOVIRUS NOT DETECTED; INFLUENZA A- RESP PCR PANEL NOT DETECTED; INFLUENZA B - RESP PCR PANEL NOT DETECTED; M. PNEUMONIAE- RESP PCR PANEL NOT DETECTED; PARAINFLUENZA VIRUS 1 NOT DETECTED; PARAINFLUENZA VIRUS 2 NOT DETECTED; PARAINFLUENZA VIRUS 4 NOT DETECTED; RHINOVIRUS/ENTEROVIRUS NOT DETECTED; RSV- RESP PCR PANEL NOT DETECTED; SARS-CoV-2 -RESP PCR PANEL NOT DETECTED
[2024-06-15] MEDS: BUMETANIDE 1 MG/4 ML VIAL IVP STA (17:06)
[2024-06-15 19:09] LABS: CLARITY,URINE TURBID (CLEAR)
[2024-06-15 19:15] LABS: BACTERIA,URINE Many /HPF (None Seen); SQUAMOUS EPITHELIAL CELL,UR MANY Squamous (<= Few); WBC CLUMPS,URINE PRESENT; WBC,URINE >25 /HPF (0-5)
[2024-06-15] MEDS: cefTRIAXone 1 GM VIAL IVP STA (20:00)
[2024-06-15] MEDS: SODIUM CHLORIDE 0.9% 500 ML IV STA (20:01)
--- NOTE | 2024-06-15 20:25 | HISTORY & PHYSICAL EXAMINATION ---
Chief Complaint Chief Complaint Chief Complaint: Leg swelling History of Present Illness Admitted From Admitted From:: [facility] History Obtained From Records Reviewed: last admission History obtained from: Patient History of Present Illness HPI Comment/Other: 88-year-old female known to our service for recent admission for CHF exacerbation presents to the emergency department with complaints of leg swelling. She has a history of CHF and a recent admission for CHF exacerbation and digoxin toxicity with acute kidney injury. She is currently a resident of [facility]. On presentation today she is noted to be 10 kg higher than her discharge weight from the hospital at the last time. She has altered mental status a BNP of 851, a creatinine of 2.0 which is elevated from the level of 1.1 at the time of her discharge from the hospital last time. She complains to me today that she is cold and she is hungry and that she does not feel well. She denies any shortness of breath at this time but notes that her legs are very swollen. She denies any fevers. No fever was noted at her care facility. She was noted to be mildly hypoxic at her care facility with an oxygen saturation of 92%. Meds/Allgy Home Medications Ambulatory Orders Medication Instructions Recorded Confirmed bumetanide 1 mg tablet 1 mg PO BIDDIURETIC #60 tabs 05/25/24 acetaminophen 325 mg tablet 650 mg (2 x 325 mg) PO Q4HR PRN 05/29/24 Pain 1 to 4, or Fever #90 tabs calcium carbonate 600 mg PO DAILY #30 tabs 05/29/24 05/25/24 carvedilol 25 mg tablet (Coreg) 25 mg PO BID #60 tabs 05/29/24 05/25/24 dorzolamide 2 % eye drops 1 drp ophthalmic (eye) BID #10 mL 05/29/24 05/25/24 latanoprost 0.005 % eye drops 1 drp ophthalmic (eye) QPM #2.5 mL 05/29/24 05/25/24 lidocaine 4 % topical patch 1 patch topical DAILY #30 ea 05/29/24 multivitamin 1 tab PO DAILY #30 tabs 05/29/24 05/25/24 spironolactone 25 mg tablet 25 mg PO Q OTHER DAY #20 tabs 05/29/24 05/25/24 Allergies Allergies Allergy/AdvReac Type Severity Reaction Status Date / Time No Known Drug Allergies Allergy Verified 06/15/24 15:16 [facility] Active Problems All Active Problems (Updated 06/15/24 @ 20:50 by MYA Rojas) Hypotension (Acute) Hyponatremia (Acute) Acute alteration in mental status (Acute) UTI (urinary tract infection) (Acute) Pulmonary edema (Acute) Acute exacerbation of CHF (congestive heart failure) (Acute) Elevated troponin (Acute) Diastolic heart failure (Acute) Chronic atrial fibrillation (Acute) CHF (congestive heart failure) (Acute) Infected hematoma (Acute) Leg swelling (Acute) Healthcare maintenance (Acute) History of endometrial cancer (Acute) History of colon cancer (Acute) Anemia (Acute) Chronic lymphocytic leukemia (Acute) Hypercoagulability due to atrial fibrillation (Acute) CHF (congestive heart failure), NYHA class I (Acute) Atrial fibrillation (Acute) Lymphedema (Acute) Localized swelling of right lower extremity (Acute) Cellulitis (Acute) Pleural effusion (Acute) Intramural aortic hematoma (Acute) Chest pain (Acute) Back pain (Acute) Medical History Medical History (Updated 06/15/24 @ 20:50 by MYA Rojas) Lymphedema Family History Family History Other Family history of cerebrovascular accident (CVA) in father Family history of sudden cardiac in mother Social History Social History Smoking Status: Never smoker Second hand tobacco smoke exposure: No Do you dip or chew tobacco?: No Do you vape?: No Relationship: Level: Assisted Home Mobility Equipment: Walker Do you feel safe in your home environment?: Yes Suffered physical, verbal, emotional, or financial abuse?: No History of Abuse: No Substance Use: denies use POLST Patient has POLST: Yes POLST Status: DNR (Comfort focused treatment) Review of Systems Status of ROS: 10 or more systems reviewed and unremarkable except as noted in history and below Constitutional Reports: Fatigue; Denies: Fever Eyes Denies: Vision loss or Eye discomfort Ears, nose, mouth, and throat Denies: Change in hearing Cardiovascular Reports: edema and swelling of feet/ankles; Denies: Irregular heart rate, chest pain or shortness of breath when lying down Respiratory Denies: Cough Gastrointestinal Denies: Abdominal pain Genitourinary Denies: Painful urination Integumentary/Breast Denies: Rash Neurological Denies: General weakness or Focal weakness Endocrine Reports: Fatigue Prior Level of Functionality: Currently at SNF for rehab. Exam Constitutional Elderly female who appears ill.She does not appear dyspneic she is laying calmly in the bed HENMT normocephalic, head/scalp atraumatic, hearing grossly normal bilaterally, external ears normal and oral mucous membranes normal Eyes PERRL, conjunctivae normal and no scleral icterus Neck/C-Spine visual inspection normal and trachea midline Lymph no lymphadenopathy noted and no lymphedema noted (Severe lymphedema bilateral lower extremities.) Chest inspection of chest normal Respiratory breath sounds equal bilaterally, normal respiratory effort and no rales Decreased breath sounds at the bases of her lungs. Cardiovascular normal heart rate noted and no additional abnormal heart sounds irregularly irregular Gastrointestinal abdomen normal to inspection and abdomen soft to palpation Back/Pelvis spine normal to inspection Extremities 3+ pitting edema to the thighs bilaterally Neurology GCS 15 Psychiatry mental status grossly normal, oriented x3, thought process normal and cooperative Skin skin color normal and no rash Conclusion/Plan Problem List (1) Acute exacerbation of CHF (congestive heart failure): Plan: Chest x-ray indicative of CHF exacerbation, also with a BNP of 851. Looking back at her previous values she tends to be in the 400s and 500s. We will diurese her with Bumex 1 mg IV twice daily. We will monitor her renal function. We will monitor her sodium and potassium. I have ordered a BMP for the a.m. She has gotten 1 mg of Bumex in the emergency department approximately 4 hours ago. She will get an additional milligram this evening and then another milligram in approximately 12 hours. Qualifiers: Heart failure type: unspecified Qualified Code(s): I50.9 - Heart failure, unspecified (2) UTI (urinary tract infection): Plan: Urinalysis ordered in the emergency department is equivocal. The sample shows many squamous cells and was not sent for culture due to the degree of contamination. I have asked for repeat urine culture. In the meantime she has been started on treatment with Rocephin as she does have altered mental status. Qualifiers: Hematuria presence: without hematuria Urinary tract infection type: a cute cystitis Qualified Code(s): N30.00 - Acute cystitis without hematuria (3) CUBA (acute kidney injury): Plan: Her baseline creatinine is within normal limits. Labs sent as an outpatient 2 days ago show a rise to 1.6 and today her creatinine is 2.0. All of this in the setting of CHF exacerbation with severe peripheral edema and hyponatremia. Patient will be diuresed and her renal function will be monitored. (4) Hyponatremia: Plan: Hyponatremia 130. Labs checked 2 days ago show the same. I will diuresis patient continue to monitor. I will also place her on 1500 mL of fluid restriction in light of her CHF and hyponatremia. (5) Chronic atrial fibrillation: Plan: Her current outpatient medications for her chronic atrial fibrillation include Eliquis 5 mg p.o. twice daily. She has a history of elevated INR for quite a long time after being off of warfarin. I will check an INR with her a.m. labs. She does not show any other changes in her liver function. Vital signs since presentation in the emergency department are indicative of a normal heart rate. She takes Coreg 25 mg p.o. twice daily at home. (6) Leg swelling: Plan: Severe lower extremity edema. This patient's weight is 10 kg higher than her baseline. Her exam is familiar to me and she definitely shows significant edema as compared to when I last saw her. We will diurese aggressively with Bumex 1 mg IV twice daily. I am also continuing her home dosing of spironolactone 25 mg daily. I will monitor electrolytes daily with a BMP. I have asked nursing staff to place KELLEE hose and SCDs on this patient. I have also asked that they elevate her lower extremities is much as she can tolerate in order to help get the fluid out of her legs. (7) Hypotension: Plan: Differential diagnosis for hypotension includes hypovolemia , sepsis, or heart failure with severely reduced ejection fraction. Her last echocardiogram was on 03/09/2024. At that time there was moderate global global hypokinesis of left ventricular contractility moderate right ventricular enlargement RVSP was 46. At that time she had left ventricular ejection fraction of 35 to 40%. Her systolic blood pressure in the emergency department today has been in the low 100s. Looking back at her previous vital signs she tends to be in the 120s to 130s systolic. Blood pressures recorded at [facility] earlier today are consistent with a trend of today. Will continue to follow her perfusion and consider repetition of echo. Plan Admission to observation status for multiple medical problems. Her hyponatremia is not severe. Her acute kidney injury is is indicated by an approximate doubling of her creatinine. Her edema is severe and very uncomfortable for her. Patient was discussed with Dr. Hogue in the emergency department. She will be admitted to observation status, treated for urinary tract infection aggressively diuresed. She does have a DNR comfort focused POLST but wants antibiotics for urinary tract infection and treatment for her CHF as these are increasing her comfort at this time.I have asked that a new sample of urine be sent for culture as I would want to tile picker and any drug-resistant bacteria but at this time she is being treated with Rocephin. I have spent 78minutes in the care of this patient today. This includes time [id number], review and ordering of diagnostic imaging and laboratory studies and consultation with other providers.. Monitoring the patient's signs symptoms, evaluation of medication effectiveness and patient's response to treatment. Lab Results Lab results reviewed: Yes 06/15/24 16:04 06/15/24 16:04 Core Measures Anticipated LOS I expect patient to be DC'd or transferred within 96 hours.: Yes Issues Hospital Issues and Management Plan: CHF exacerbation and UTI- admit for diuresis and treatment of UTI DVT/VTE - Prophylaxis VTE/DVT Device ordered at admit?: Yes VTE/DVT Prophylaxis med ordered at admit?: Yes
[2024-06-15] MEDS ORDERED: ONDANSETRON ODT 4 MG TABLET TL PRN (21:07)
[2024-06-15] MEDS ORDERED: ACETAMINOPHEN 325 MG TABLET PO PRN (21:07)
[2024-06-15] MEDS: BUMETANIDE 1 MG/4 ML VIAL IVP SCH (21:21)
[2024-06-15] MEDS: carvediloL 12.5 MG TABLET PO SCH (21:59)
[2024-06-15] MEDS: DORZOLAMIDE 2% OPHTH DROPS EACHEYE SCH (22:04)
[2024-06-15] MEDS: LATANOPROST 0.005% OPHTH DROPS EACHEYE SCH (22:05)
[2024-06-15] MEDS: HEPARIN 5,000 UNIT/ML VIAL SUBQ SCH (22:21)
[2024-06-16] MEDS: SODIUM CHLORIDE FLUSH 0.9% 10 ML SYRINGE IVP SCH (00:01)
[2024-06-16 05:39] LABS: BASOPHILS % (AUTO) 0.3 %; EOSINOPHILS % (AUTO) 0.3 %; HCT - HEMATOCRIT 27.2 % (37.0-47.0); HGB - HEMOGLOBIN 8.7 g/dL (12.0-16.0); LYMPHOCYTES # (AUTO) 0.7 10^3/uL (1.5-3.5); LYMPHOCYTES % (AUTO) 8.2 %; MEAN CORPUSCULAR VOLUME 96.8 fL (81.0-99.0); MEAN PLATELET VOLUME 9.5 fL (7.9-10.8); MONOCYTES # (AUTO) 0.2 10^3/uL (0.0-1.0); MONOCYTES % (AUTO) 2.6 %; PLT - PLATELET COUNT 165 10^3/uL (130-450); RED BLOOD COUNT 2.81 10^6/uL (4.20-5.40); RED CELL DISTRIBUTION WIDTH 14.9 % (12.0-15.0)
[2024-06-16 05:43] LABS: INR 2.4 (0.8-1.2); PT - PROTHROMBIN TIME 25.1 secs (9.9-12.6)
[2024-06-16 05:55] LABS: CALCIUM 7.7 mg/dL (8.5-10.3); CREATININE 2.1 mg/dL (0.6-1.3); POTASSIUM 4.1 mmol/L (3.5-4.5)
[2024-06-16] MEDS: CALCIUM CARBONATE CHEW 500 MG TABLET PO SCH (08:36)
[2024-06-16] MEDS: SPIRONOLACTONE 25 MG TABLET PO SCH (08:37)
[2024-06-16] MEDS: APIXABAN 5 MG TABLET PO SCH (08:37)
[2024-06-16] MEDS: LIDOCAINE PATCH 4% TOP SCH (08:38)
--- NOTE | 2024-06-16 12:10 | PROVIDER PROGRESS NOTE ---
Subjective Prog Note Date Prog Note Date: 06/16/24 Subjective Subjective: She is awake and alert today. She thinks her legs are a little better. She is not having any shortness of breath. Current Medications Current Medications Current Medications: Current Medications Generic Name Dose Route Start Last Admin Trade Name Lam PRN Reason Stop Dose Admin Acetaminophen 650 mg 06/15/24 21:07 Acetaminophen 325 Mg Tablet PO Q4HR PRN Pain 1 to 4, or Fever Calcium Carbonate/Glycine 1,500 mg 06/16/24 09:00 06/16/24 08:36 Calcium Carbonate Chew 500 Mg Tablet PO 1,500 mg DAILY TORIBIO Administration Carvedilol 25 mg 06/15/24 21:07 06/16/24 08:36 Carvedilol 12.5 Mg Tablet PO 25 mg BID TORIBIO Administration Ceftriaxone Sodium 1 gm 06/16/24 20:00 Ceftriaxone 1 Gm Vial IVP Q24H TORIBIO Dorzolamide HCl 1 drops 06/15/24 21:07 06/16/24 08:38 Dorzolamide 2% Ophth Drops EACHEYE 1 drops BID TORIBIO Administration Bumetanide 10 mg/ Sodium 250 mls @ 12.5 mls/hr 06/16/24 11:00 Chloride IV .Q20H TORIBIO Protocol 0.5 MG/HR Latanoprost 1 drops 06/15/24 21:07 06/15/24 22:05 Latanoprost 0.005% Ophth Drops EACHEYE Not Given QPM TORIBIO Lidocaine 1 patch 06/16/24 09:00 06/16/24 08:38 Lidocaine Patch 4% TOP Not Given DAILY TORIBIO Ondansetron HCl 4 mg 06/15/24 21:07 Ondansetron Odt 4 Mg Tablet TL Q6HR PRN Nausea / Vomiting Oxycodone HCl 5 mg 06/15/24 21:07 Oxycodone 5 Mg Tablet PO Q4HR PRN Pain 5 to 7 Sodium Chloride 10 ml 06/15/24 21:07 Sodium Chloride Flush 0.9% 10 Ml Syringe IVP PRN PRN NEEDED PER PROVIDER ORDERS Sodium Chloride 10 ml 06/16/24 01:00 06/16/24 08:37 Sodium Chloride Flush 0.9% 10 Ml Syringe IVP 10 ml 0100,0900,1700 TORIBIO Administration Spironolactone 25 mg 06/16/24 09:00 06/16/24 08:37 Spironolactone 25 Mg Tablet PO 25 mg DAILY TORIBIO Administration Objective Vital Signs/Intake & Output Reviewed Vital Signs: Yes Vital Signs: Vital Signs x48h Temp Pulse Resp BP Pulse Ox 06/16/24 08:55 36.8 C 74 20 101/47 L 92 06/16/24 04:55 36.6 C 77 22 108/52 L 93 Intake & Output: Intake & Output 06/13/24 06/15/24 06/15/24 06/16/24 23:59 00:59 23:59 23:59 Intake Total 500 / 500 450 / 450 Output Total 0 / 0 200 / 200 Balance 500 / 500 250 / 250 Weight (kg) 79 kg 79 kg Objective General Appearance: positive No acute distress and Alert Eyes Bilateral: positive Normal inspection ENT: positive ENT inspection nml Neck: positive Nml inspection Respiratory: positive No respiratory distress and Breath sounds nml (decreased at the bases) Cardiovascular: positive Irregularly irregular Abdomen: positive Tenderness Back: positive Nml inspection Skin: positive Color nml Extremities: positive Pedal edema (severe pedal edema that extends up onto her flanks bilaterally) Neurologic/Psychiatric: positive Oriented x3 Lab Results 06/16/24 05:23 06/16/24 05:23 Other Labs: Lab Results x24hrs 06/16/24 06/15/24 06/15/24 Range/Units 05:23 20:01 18:25 WBC 8.0 (4.8-10.8) x10^3/uL RBC 2.81 L (4.20-5.40) 10^6/uL Hgb 8.7 L (12.0-16.0) g/dL Hct 27.2 L (37.0-47.0) % MCV 96.8 (81.0-99.0) fL MCH 31.0 (27.0-31.0) pg MCHC 32.0 (32.0-36.0) g/dL RDW 14.9 (12.0-15.0) % Plt Count 165 (130-450) 10^3/uL MPV 9.5 (7.9-10.8) fL Neut # (Auto) 7.0 H (1.5-6.6) 10^3/uL Lymph # (Auto) 0.7 L (1.5-3.5) 10^3/uL [place] # (Auto) 0.2 (0.0-1.0) 10^3/uL Eos # (Auto) 0.0 (0.0-0.7) 10^3/uL Baso # (Auto) 0.0 (0.0-0.1) 10^3/uL Absolute Nucleated RBC 0.00 x10^3/uL Nucleated RBC % 0.0 /100WBC PT 25.1 H (9.9-12.6) secs INR 2.4 H (0.8-1.2) Sodium 130 L (135-145) mmol/L Potassium 4.1 (3.5-4.5) mmol/L Chloride 97 L (101-111) mmol/L Carbon Dioxide 24 (21-32) mmol/L Anion Gap 9.0 (6-13) BUN 61 H (6-20) mg/dL Creatinine 2.1 H (0.6-1.3) mg/dL Estimated GFR (MDRD) 22 L (>89) Glucose 108 H (74-104) mg/dL Lactic Acid 1.0 (0.5-2.2) mmol/L Calcium 7.7 L (8.5-10.3) mg/dL Total Bilirubin (0.2-1.0) mg/dL AST (10-42) IU/L ALT (10-60) IU/L Alkaline Phosphatase (42-121) IU/L B-Natriuretic Peptide 729 H (5-100) pg/mL Total Protein (6.4-8.9) g/dL Albumin (3.2-5.5) g/dL Globulin (2.1-4.2) g/dL Albumin/Globulin Ratio (1.0-2.2) Urine Color Urine Clarity (CLEAR) Urine pH Ur Specific [place] Urine Protein Urine Glucose (UA) Urine Ketones Urine Occult Blood Urine Nitrite Urine Bilirubin Urine Urobilinogen Ur Leukocyte Esterase (NEGATIVE) Urine RBC (0-5) /HPF Urine WBC (0-5) /HPF Urine WBC Clumps Ur Epithelial Cells MOD Transitional H (<= Few) /HPF Ur Squamous Epith Cells MANY Squamous H (<= Few) Urine Bacteria Many H (None Seen) /HPF Ur Microscopic Review INDICATED Urine Culture Comments NOT INDICATED Nasal Adenovirus (PCR) Nasal B. parapertussis DNA (PCR) Nasal Coronavir 229E PCR Nasal Coronavir HKU1 PCR Nasal Coronavir NL63 PCR Nasal Coronavir OC43 PCR Nasal Enterovir/Rhinovir PCR Nasal Influenza B PCR Nasal Influenza A PCR Nasal Parainfluen 1 PCR Nasal Parainfluen 2 PCR Nasal Parainfluen 3 PCR Nasal Parainfluen 4 PCR Nasal RSV (PCR) Nasal B.pertussis DNA PCR Nasal C.pneumoniae (PCR) Gene Human Metapneumo PCR Nasal M.pneumoniae (PCR) Nasal SARS-CoV-2 (PCR) 06/15/24 06/15/24 06/15/24 Range/Units 18:25 16:04 15:56 WBC 7.7 (4.8-10.8) x10^3/uL RBC 2.55 L (4.20-5.40) 10^6/uL Hgb 8.2 L (12.0-16.0) g/dL Hct 25.0 L (37.0-47.0) % MCV 98.0 (81.0-99.0) fL MCH 32.2 H (27.0-31.0) pg MCHC 32.8 (32.0-36.0) g/dL RDW 14.9 (12.0-15.0) % Plt Count 152 (130-450) 10^3/uL MPV 9.1 (7.9-10.8) fL Neut # (Auto) 6.7 H (1.5-6.6) 10^3/uL Lymph # (Auto) 0.7 L (1.5-3.5) 10^3/uL [place] # (Auto) 0.2 (0.0-1.0) 10^3/uL Eos # (Auto) 0.0 (0.0-0.7) 10^3/uL Baso # (Auto) 0.0 (0.0-0.1) 10^3/uL Absolute Nucleated RBC 0.00 x10^3/uL Nucleated RBC % 0.0 /100WBC PT (9.9-12.6) secs INR (0.8-1.2) Sodium 130 L (135-145) mmol/L Potassium 4.3 (3.5-4.5) mmol/L Chloride 96 L (101-111) mmol/L Carbon Dioxide 26 (21-32) mmol/L Anion Gap 8.0 (6-13) BUN 57 H (6-20) mg/dL Creatinine 2.0 H (0.6-1.3) mg/dL Estimated GFR (MDRD) 24 L (>89) Glucose 100 (74-104) mg/dL Lactic Acid (0.5-2.2) mmol/L Calcium 8.3 L (8.5-10.3) mg/dL Total Bilirubin 0.8 (0.2-1.0) mg/dL AST 16 (10-42) IU/L ALT 13 (10-60) IU/L Alkaline Phosphatase 69 (42-121) IU/L B-Natriuretic Peptide 851 H (5-100) pg/mL Total Protein 6.0 L (6.4-8.9) g/dL Albumin 2.3 L (3.2-5.5) g/dL Globulin 3.7 (2.1-4.2) g/dL Albumin/Globulin Ratio 0.6 L (1.0-2.2) Urine Color LIGHT YELLOW Urine Clarity TURBID (CLEAR) Urine pH Not Reportable Ur Specific [place] Not Reportable Urine Protein Not Reportable Urine Glucose (UA) Not Reportable Urine Ketones Not Reportable Urine Occult Blood Not Reportable Urine Nitrite Not Reportable Urine Bilirubin Not Reportable Urine Urobilinogen Not Reportable Ur Leukocyte Esterase (NEGATIVE) Urine RBC 6-10 H (0-5) /HPF Urine WBC >25 H (0-5) /HPF Urine WBC Clumps PRESENT Ur Epithelial Cells MOD Renal Tubular H (<= Few) /HPF Ur Squamous Epith Cells (<= Few) Urine Bacteria (None Seen) /HPF Ur Microscopic Review Urine Culture Comments Nasal Adenovirus (PCR) NOT DETECTED Nasal B. parapertussis DNA (PCR) NOT DETECTED Nasal Coronavir 229E PCR NOT DETECTED Nasal Coronavir HKU1 PCR NOT DETECTED Nasal Coronavir NL63 PCR NOT DETECTED Nasal Coronavir OC43 PCR NOT DETECTED Nasal Enterovir/Rhinovir PCR NOT DETECTED Nasal Influenza B PCR NOT DETECTED Nasal Influenza A PCR NOT DETECTED Nasal Parainfluen 1 PCR NOT DETECTED Nasal Parainfluen 2 PCR NOT DETECTED Nasal Parainfluen 3 PCR NOT DETECTED Nasal Parainfluen 4 PCR NOT DETECTED Nasal RSV (PCR) NOT DETECTED Nasal B.pertussis DNA PCR NOT DETECTED Nasal C.pneumoniae (PCR) NOT DETECTED Gene Human Metapneumo PCR NOT DETECTED Nasal M.pneumoniae (PCR) NOT DETECTED Nasal SARS-CoV-2 (PCR) NOT DETECTED Assessment/Plan Problem List (1) Acute exacerbation of CHF (congestive heart failure): Impression: Chest x-ray indicative of CHF exacerbation, also with a BNP of 851, slow downtrending to 729. Looking back at her previous values she tends to be in the 400s and 500s. We will diurese her with Bumex 1 mg IV twice daily. We will monitor her renal function (2.0 to 2.1) We will monitor her sodium and potassium (Na is steady overnight at 130, K is 4.3 to 4.1 this AM). I am starting a bumex drip this AM at 0.5mg/hr. I ran that for approx 6 hours and the patient made <200cc of urine, accounting for a bladder scan of 119cc and less than 100cc out in the pure wick. I then stopped the drip and gave her 2mg bumex IVP. I will then observe her UOP further. I am concerned that she is going into anuric renal failure. I called her life partner and spouse, Yessenia and let her know that I was concerned about the situation. The patient has not made urine today despite aggressive administration of diuretic medications. Artificial renal replacement therapy is not within this patient's goals of care. Yessenia understands this. Qualifiers: Heart failure type: unspecified Qualified Code(s): I50.9 - Heart failure, unspecified (2) UTI (urinary tract infection): Impression: Urinalysis ordered in the emergency department is equivocal. The sample shows many squamous cells and was not sent for culture due to the degree of contamination. I have asked for repeat urine culture. In the meantime she has been started on treatment with Rocephin as she does have altered mental status. She was given 1 dose of Rocephin. I have not seen any increase in her white blood cell count. I have not seen any other signs symptoms of sepsis. Therefore I will not continue antibiotic treatment. I do have a urine culture in progress Qualifiers: Hematuria presence: without hematuria Urinary tract infection type: a cute cystitis Qualified Code(s): N30.00 - Acute cystitis without hematuria (3) CUBA (acute kidney injury): Impression: .Her baseline renal status is a creatinine between 1.1 and 1.3. She presents to the emergency department with a creatinine of 2.0. It had been checked 2 days prior in the outpatient environment and was 1.6. Her creatinine is 2.1 this morning. She has almost anuric renal failure at this point. I believe she is now going into anuric renal failure. (4) Hyponatremia: Impression: Hyponatremia 130. Labs checked 2 days ago show the same. Her hyponatremia is unaffected by attempted diuresis. Will continue with fluid restriction. I will also place her on 1500 mL of fluid restriction in light of her CHF and hyponatremia. (5) Chronic atrial fibrillation: Impression: Her current outpatient medications for her chronic atrial fibrillation include Eliquis 5 mg p.o. twice daily. She has a history of elevated INR for quite a long time after being off of warfarin. I will check an INR with her a.m. labs daily. could be related to congestion of flow related to her CHF. Vital signs since presentation in the emergency department are indicative of a normal heart rate. She takes Coreg 25 mg p.o. twice daily at home. I restarted this at the time of admit. I am discontinuing the Eliquis as the patient is effectively anticoagulated with an INR 2.4. (6) Leg swelling: Impression: Severe lower extremity edema. This patient's weight is 10 kg higher than her baseline. Her exam is familiar to me and she definitely shows significant edema as compared to when I last saw her. I have started her on a bumex drip today. I am also continuing her home dosing of spironolactone 25 mg daily. I will monitor electrolytes daily with a BMP. I am concerned that she is going into anuric renal failure. (7) Hypotension: Impression: Differential diagnosis for hypotension includes hypovolemia , sepsis, or heart failure with severely reduced ejection fraction. Her last echocardiogram was on 03/09/2024. At that time there was moderate global global hypokinesis of left ventricular contractility moderate right ventricular enlargement RVSP was 46. At that time she had left ventricular ejection fraction of 35 to 40%. Her systolic blood pressure has been in the low 100s throughout the admission. Looking back at her previous vital signs she tends to be in the 120s to 130s systolic. continue to follow. I have spent 48 minutes in the care of this patient today. This includes time [id number], review and ordering of diagnostic imaging and laboratory studies.. Monitoring the patient's signs symptoms, evaluation of medication effectiveness and patient's response to treatment.
[2024-06-16] MEDS: BUMETANIDE INJ 10 MG in SODIUM CHLORIDE 0.9% 210 ML IV SCH (12:48)
--- NOTE | 2024-06-16 15:04 | OT Plan of Care ---
OT Inpatient POC Diagnosis DIAGNOSIS Diagnosis: CHF exacerbation; CUBA Chief Complaint: weakness, fatigue Onset of Chief Complaint: [employer] MEDICAL/SURGICAL HISTORY Medical History (Updated 06/15/24 @ 22:36 by Bryan Hogue MD) Lymphedema Assessment and Goals ASSESSMENT Assessment: Pt is an 88 y/o female adm from SNF with CHF exacerbation, UTI, altered mental status and CUBA. A&Ox4 however lethargic, willing to participate with therapy. VSS on RA. Denied dizziness. Pt performed supine to sit MOD Ax2, sit to stand MIN A x2, and SPT bed to chair MIN Ax2 using RW - guarded and slow 2/2 fatigue. Overall pt presents with decreased activity tolerance, strength, and ADL status. Will benefit from cont OT services during acute stay to progress indp and safety for d/c. Rec d/c to SNF at this time. -Activities of Daily Living Improve Upper Extremity Dressing to:: Modified Independent Improve Lower Extremity Dressing to:: Modified Independent Improve Grooming/Hygiene to:: Modified Independent Improve Bathing to:: Modified Independent Improve Toileting to:: Modified Independent OT Inpatient Plan PLAN Treatment Frequency: 1x/day Duration: Until discharge -Discharge Recommendations Discharge Location: [facility] Transport Needs at Discharge: [facility]
--- NOTE | 2024-06-16 15:11 | PHARMACY PROGRESS NOTE ---
Best Possible Medication History Admit Date and Time: 06/16/24 1119 Home Medications Medication Instructions Recorded Confirmed Type acetaminophen 325 mg tablet 650 mg (2 x 325 mg) PO Q4HR PRN 05/29/24 06/16/24 Rx Pain 1 to 4, or Fever #90 tabs calcium carbonate 600 mg PO DAILY #30 tabs 05/29/24 06/16/24 Rx carvedilol 25 mg tablet (Coreg) 25 mg PO BID #60 tabs 05/29/24 06/16/24 Rx dorzolamide 2 % eye drops 1 drp ophthalmic (eye) BID #10 mL 05/29/24 06/16/24 Rx latanoprost 0.005 % eye drops 1 drp ophthalmic (eye) QPM #2.5 mL 05/29/24 06/16/24 Rx lidocaine 4 % topical patch 1 patch topical DAILY #30 ea 05/29/24 06/16/24 Rx multivitamin 1 tab PO DAILY #30 tabs 05/29/24 06/16/24 Rx apixaban 5 mg tablet (Eliquis) 5 mg PO BID 06/16/24 06/16/24 History ascorbic acid (vitamin C) 500 mg 1,000 mg PO DAILY 06/16/24 06/16/24 History capsule bumetanide 1 mg tablet 1 mg PO QPM 06/16/24 06/16/24 History bumetanide 1 mg tablet 2 mg PO DAILY 06/16/24 06/16/24 History spironolactone 25 mg tablet 25 mg PO DAILY 06/16/24 06/16/24 History zinc 50 mg capsule 50 mg PO DAILY 06/16/24 06/16/24 History Processed by: Pharmacy Medications reviewed in ED?: No Medication History completed: Yes Patient Interview: Pt unable to participate Secondary Source(s): Facility [facility] as ONLY source ([facility]) [facility] Statement: As the person ultimately responsible for medication therapy, providers are able to order a medication from an existing home medication list in [facility] via the "Reconcile Routine" prior to Confirmation of that medication by support director. Such practice is discouraged except when the physician, in their clinical judgment, deems that a medical need exists for a medication without regard to previous use.
--- NOTE | 2024-06-16 15:39 | PT Plan of Care ---
PT Inpatient Plan of Care DIAGNOSIS Diagnosis: CHF exacerbation; CUBA Referring Provider: Landy Bee Patient Status: Inpatient CHIEF COMPLAINT Chief Complaint: weakness, fatigue Onset of Chief Complaint: [place] MEDICAL/SURGICAL HISTORY Medical History (Updated 06/15/24 @ 22:36 by Bryan Hogue MD) Lymphedema BALANCE/FUNCTIONAL RESULTS Sitting Balance: Fair Standing Balance: Fair ASSESSMENT Assessment: Pt is a pleasant 88yo F referred for PT eval d/t limited mobility. Pt is known to this PT having been seen for similar during recent admission. This admission with CHF exacerbation, BLE edema and SOA. Pt was admitted from SNF where she has been rehabbing s/p recent hospital admit. Prior to SNF placement, pt lived in [facility] with partner "Yessenia" who is present for PT eval. Pt was indep at baseline, however overall decline in function since Mar 2024 hospitalization. Now requiring FWW and has difficulty with stairs in home; previously climbed stairs daily. Upon PT eval, pt is somnolent but A&Ox3-4. Transfers with min to modAx2 and limited steps at bedside with FWW and modAx1. Pt reports she was walking "the hallways" at SNF with FWW and "some assistance", approx distance 100'. Pt may benefit from skilled PT in acute setting to improve activity tolerance and increase ambulation distance. When medically clear, PT rec dc back to SNF as she is unable to access upstairs level of home and is significantly deconditioned. GOALS Improve supine to sit to:: Contact Guard Improve sit to stand to:: Contact Guard Improve pivot transfer ability to:: Contact Guard Improve sit to supine to:: Contact Guard Improve gait ability to:: Min A Advance Assistive Device to:: Front Wheeled Walker Increase distance walked to (in feet):: 30 Improve Sitting Balance to:: Good PLAN Frequency: 1-2x/day Duration: Until goals are met DISCHARGE RECOMMENDATIONS Discharge Location: [facility] Equipment Recommended: Front wheeled walker Other Discharge Equipment: has FWW Transport Needs at Discharge: B[facility]L.S Other: BLS vs [facility] van pending progress.
[2024-06-16] MEDS: BUMETANIDE 1 MG/4 ML VIAL IVP ONE (17:31)
[2024-06-16] MEDS: cefTRIAXone 1 GM VIAL IVP SCH (20:38)
[2024-06-17 06:31] LABS: BASOPHILS % (AUTO) 0.3 %; EOSINOPHILS # (AUTO) 0.1 10^3/uL (0.0-0.7); EOSINOPHILS % (AUTO) 1.4 %; HCT - HEMATOCRIT 26.4 % (37.0-47.0); HGB - HEMOGLOBIN 8.4 g/dL (12.0-16.0); LYMPHOCYTES # (AUTO) 0.7 10^3/uL (1.5-3.5); LYMPHOCYTES % (AUTO) 8.5 %; MEAN CORPUSCULAR HEMOGLOBIN 30.7 pg (27.0-31.0); MEAN CORPUSCULAR HGB CONC 31.8 g/dL (32.0-36.0); MEAN CORPUSCULAR VOLUME 96.4 fL (81.0-99.0); MEAN PLATELET VOLUME 9.4 fL (7.9-10.8); MONOCYTES # (AUTO) 0.3 10^3/uL (0.0-1.0); MONOCYTES % (AUTO) 4.1 %; NEUTROPHILS # (AUTO) 6.8 10^3/uL (1.5-6.6); NEUTROPHILS % (AUTO) 84.9 %; PLT - PLATELET COUNT 150 10^3/uL (130-450); RED BLOOD COUNT 2.74 10^6/uL (4.20-5.40); RED CELL DISTRIBUTION WIDTH 15.1 % (12.0-15.0)
[2024-06-17 06:34] LABS: INR 2.1 (0.8-1.2)
[2024-06-17 06:42] LABS: CALCIUM 7.5 mg/dL (8.5-10.3); CREATININE 2.2 mg/dL (0.6-1.3); POTASSIUM 4.1 mmol/L (3.5-4.5)
[2024-06-17] MEDS: BUMETANIDE 1 MG/4 ML VIAL IVP SCH (14:04)
[2024-06-17] MEDS: ALBUMIN 25% 12.5 GM/50 ML VIAL IV SCH (14:04)
--- NOTE | 2024-06-17 15:37 | PROVIDER PROGRESS NOTE ---
Subjective Prog Note Date Prog Note Date: 06/17/24 Subjective Pt reports feeling: No change Current Medications Current Medications Current Medications: Current Medications Generic Name Dose Route Start Last Admin Trade Name Lam PRN Reason Stop Dose Admin Acetaminophen 650 mg 06/15/24 21:07 Acetaminophen 325 Mg Tablet PO Q4HR PRN Pain 1 to 4, or Fever Bumetanide 1 mg 06/17/24 14:00 06/17/24 14:04 Bumetanide 1 Mg/4 Ml Vial IVP 1 mg BIDDIURETIC TORIBIO Administration Calcium Carbonate/Glycine 1,500 mg 06/16/24 09:00 06/17/24 08:22 Calcium Carbonate Chew 500 Mg Tablet PO 1,500 mg DAILY TORIBIO Administration Carvedilol 25 mg 06/15/24 21:07 06/17/24 08:25 Carvedilol 12.5 Mg Tablet PO Not Given BID TORIBIO Ceftriaxone Sodium 1 gm 06/16/24 20:00 06/16/24 20:38 Ceftriaxone 1 Gm Vial IVP 1 gm Q24H TORIBIO Administration Dorzolamide HCl 1 drops 06/15/24 21:07 06/17/24 08:30 Dorzolamide 2% Ophth Drops EACHEYE 1 drops BID TORIBIO Administration Albumin Human 12.5 gm in 50 mls @ 50 mls/hr 06/17/24 14:00 06/17/24 15:06 Albuminar-25 IV Infused BIDDIURETIC TORIBIO Infusion Latanoprost 1 drops 06/15/24 21:07 06/16/24 20:39 Latanoprost 0.005% Ophth Drops EACHEYE 1 drops QPM TORIBIO Administration Lidocaine 1 patch 06/16/24 09:00 06/17/24 08:25 Lidocaine Patch 4% TOP Not Given DAILY TORIBIO Ondansetron HCl 4 mg 06/15/24 21:07 Ondansetron Odt 4 Mg Tablet TL Q6HR PRN Nausea / Vomiting Oxycodone HCl 5 mg 06/15/24 21:07 Oxycodone 5 Mg Tablet PO Q4HR PRN Pain 5 to 7 Sodium Chloride 10 ml 06/15/24 21:07 Sodium Chloride Flush 0.9% 10 Ml Syringe IVP PRN PRN NEEDED PER PROVIDER ORDERS Sodium Chloride 10 ml 06/16/24 01:00 06/17/24 10:12 Sodium Chloride Flush 0.9% 10 Ml Syringe IVP 10 ml 0100,0900,1700 TORIBIO Administration Spironolactone 25 mg 06/16/24 09:00 06/17/24 08:25 Spironolactone 25 Mg Tablet PO Not Given DAILY TORIBIO Objective Vital Signs/Intake & Output Reviewed Vital Signs: Yes Vital Signs: Vital Signs x48h Temp Pulse Resp BP Pulse Ox 06/17/24 08:27 36.5 C 67 20 107/52 L 90 L Intake & Output: Intake & Output 06/15/24 06/15/24 06/16/24 06/17/24 00:59 23:59 23:59 23:59 Intake Total 500 / 500 1212 / 1212 620 / 620 Output Total 0 / 0 390 / 390 180 / 180 Balance 500 / 500 822 / 822 440 / 440 Weight (kg) 79 kg 79 kg 82 kg Objective General Appearance: positive No acute distress and Alert Eyes Bilateral: positive Normal inspection ENT: positive ENT inspection nml Neck: positive Nml inspection Respiratory: positive No respiratory distress and Breath sounds nml (decreased at the bases) Cardiovascular: positive Irregularly irregular Abdomen: positive Tenderness Back: positive Nml inspection Skin: positive Color nml Extremities: positive Pedal edema (severe pedal edema that extends up onto her flanks bilaterally) Neurologic/Psychiatric: positive Oriented x3 Lab Results 06/17/24 05:40 06/17/24 05:40 Other Labs: Lab Results x24hrs 06/17/24 Range/Units 05:40 WBC 8.0 (4.8-10.8) x10^3/uL RBC 2.74 L (4.20-5.40) 10^6/uL Hgb 8.4 L (12.0-16.0) g/dL Hct 26.4 L (37.0-47.0) % MCV 96.4 (81.0-99.0) fL MCH 30.7 (27.0-31.0) pg MCHC 31.8 L (32.0-36.0) g/dL RDW 15.1 H (12.0-15.0) % Plt Count 150 (130-450) 10^3/uL MPV 9.4 (7.9-10.8) fL Neut # (Auto) 6.8 H (1.5-6.6) 10^3/uL Lymph # (Auto) 0.7 L (1.5-3.5) 10^3/uL [place] # (Auto) 0.3 (0.0-1.0) 10^3/uL Eos # (Auto) 0.1 (0.0-0.7) 10^3/uL Baso # (Auto) 0.0 (0.0-0.1) 10^3/uL Absolute Nucleated RBC 0.00 x10^3/uL Nucleated RBC % 0.0 /100WBC PT 22.0 H (9.9-12.6) secs INR 2.1 H (0.8-1.2) Sodium 129 L (135-145) mmol/L Potassium 4.1 (3.5-4.5) mmol/L Chloride 97 L (101-111) mmol/L Carbon Dioxide 25 (21-32) mmol/L Anion Gap 7.0 (6-13) BUN 69 H (6-20) mg/dL Creatinine 2.2 H (0.6-1.3) mg/dL Estimated GFR (MDRD) 21 L (>89) Glucose 107 H (74-104) mg/dL Calcium 7.5 L (8.5-10.3) mg/dL Assessment/Plan Problem List (1) Acute exacerbation of CHF (congestive heart failure): Impression: Has had poor urine output and slowly worsening kidney function. Discussion was had with family regarding long-term plan. I expressed that given her multiple admissions for heart failure that her overall condition is worsening. We discussed the possibility of dialysis, and family is willing to do that. I told them I would try everything I could to medically optimize her before we discussed transfer for dialysis. I am ordering 1 mg Bumex IV push twice daily in conjunction with albumin to see if this will increase her urine output. Will check BMP in a.m. to monitor for toxicity Qualifiers: Heart failure type: unspecified Qualified Code(s): I50.9 - Heart failure, unspecified (2) UTI (urinary tract infection): Impression: On Rocephin empirically while awaiting urine culture results. First UA was from dirty catch, had to repeat this Qualifiers: Hematuria presence: without hematuria Urinary tract infection type: a cute cystitis Qualified Code(s): N30.00 - Acute cystitis without hematuria (3) CUBA (acute kidney injury): Impression: .Her baseline renal status is a creatinine between 1.1 and 1.3. She presents to the emergency department with a creatinine of 2.0. It had been checked 2 days prior in the outpatient environment and was 1.6. Her creatinine is 2.2 this morning. Her urine output is steadily decreasing. I have ordered Bumex in conjunction with albumin. Will continue to watch daily BMP. No concern for metabolic acidosis or hyperkalemia at this time. If her kidney function continues to worsen, will reach out to nephrology and an outside facility (4) Hyponatremia: Impression: Sodium 129 on a.m. labs. Continue free water restriction and diuresis as described above. Cautious with management of this given CHF exacerbation and concurrent CUBA (5) Chronic atrial fibrillation: Impression: INR chronically elevated. Rate control with 25 mg Coreg p.o. twice daily (6) Leg swelling: Impression: Secondary to CHF. Weight is 10 kg higher than baseline. Diuresis as above. Legs have been Cristian wrapped (7) Hypotension: Impression: Differential diagnosis for hypotension includes hypovolemia , sepsis, or heart failure with severely reduced ejection fraction. Her last echocardiogram was on 03/09/2024. At that time there was moderate global global hypokinesis of left ventricular contractility moderate right ventricular enlargement RVSP was 46. At that time she had left ventricular ejection fraction of 35 to 40%. Her systolic blood pressure has been in the low 100s throughout the admission. Looking back at her previous vital signs she tends to be in the 120s to 130s systolic. continue to follow. 06/17/2024: BP 107/52. Continue current regimen
[2024-06-17] MEDS: SODIUM CHLORIDE FLUSH 0.9% 10 ML SYRINGE IVP PRN (20:42)
[2024-06-18 05:42] LABS: BASOPHILS % (AUTO) 0.2 %; EOSINOPHILS # (AUTO) 0.1 10^3/uL (0.0-0.7); EOSINOPHILS % (AUTO) 0.8 %; HCT - HEMATOCRIT 26.1 % (37.0-47.0); HGB - HEMOGLOBIN 8.5 g/dL (12.0-16.0); LYMPHOCYTES # (AUTO) 0.8 10^3/uL (1.5-3.5); LYMPHOCYTES % (AUTO) 8.8 %; MEAN CORPUSCULAR HEMOGLOBIN 31.4 pg (27.0-31.0); MEAN CORPUSCULAR HGB CONC 32.6 g/dL (32.0-36.0); MEAN CORPUSCULAR VOLUME 96.3 fL (81.0-99.0); MONOCYTES # (AUTO) 0.3 10^3/uL (0.0-1.0); MONOCYTES % (AUTO) 3.8 %; NEUTROPHILS # (AUTO) 7.5 10^3/uL (1.5-6.6); NEUTROPHILS % (AUTO) 85.5 %; PLT - PLATELET COUNT 153 10^3/uL (130-450); RED BLOOD COUNT 2.71 10^6/uL (4.20-5.40); RED CELL DISTRIBUTION WIDTH 15.1 % (12.0-15.0); WHITE BLOOD COUNT 8.8 x10^3/uL (4.8-10.8)
[2024-06-18 05:54] LABS: CALCIUM 7.6 mg/dL (8.5-10.3); CREATININE 2.3 mg/dL (0.6-1.3); POTASSIUM 4.3 mmol/L (3.5-4.5)
[2024-06-18 05:57] LABS: INR 1.9 (0.8-1.2); PT - PROTHROMBIN TIME 19.8 secs (9.9-12.6)
--- NOTE | 2024-06-18 12:15 | PROVIDER PROGRESS NOTE ---
Subjective Prog Note Date Prog Note Date: 06/17/24 Subjective Pt reports feeling: No change Subjective: Patient is doing better today. She has no fevers or chills. She has no shortness of breath. We unwrapped her legs, and she feels that they are less swollen. She is eating and drinking well. Current Medications Current Medications Current Medications: Current Medications Generic Name Dose Route Start Last Admin Trade Name Lam PRN Reason Stop Dose Admin Acetaminophen 650 mg 06/15/24 21:07 Acetaminophen 325 Mg Tablet PO Q4HR PRN Pain 1 to 4, or Fever Calcium Carbonate/Glycine 1,500 mg 06/16/24 09:00 06/18/24 09:48 Calcium Carbonate Chew 500 Mg Tablet PO 1,500 mg DAILY TORIBIO Administration Carvedilol 25 mg 06/15/24 21:07 06/18/24 09:48 Carvedilol 12.5 Mg Tablet PO 25 mg BID TORIBIO Administration Ceftriaxone Sodium 1 gm 06/16/24 20:00 06/17/24 20:38 Ceftriaxone 1 Gm Vial IVP 1 gm Q24H TORIBIO Administration Dorzolamide HCl 1 drops 06/15/24 21:07 06/18/24 09:47 Dorzolamide 2% Ophth Drops EACHEYE 1 drops BID TORIBIO Administration Latanoprost 1 drops 06/15/24 21:07 06/17/24 20:39 Latanoprost 0.005% Ophth Drops EACHEYE 1 drops QPM TORIBIO Administration Lidocaine 1 patch 06/16/24 09:00 06/18/24 09:48 Lidocaine Patch 4% TOP Not Given DAILY TORIBIO Ondansetron HCl 4 mg 06/15/24 21:07 Ondansetron Odt 4 Mg Tablet TL Q6HR PRN Nausea / Vomiting Oxycodone HCl 5 mg 06/15/24 21:07 Oxycodone 5 Mg Tablet PO Q4HR PRN Pain 5 to 7 Sodium Chloride 10 ml 06/15/24 21:07 06/18/24 05:43 Sodium Chloride Flush 0.9% 10 Ml Syringe IVP 10 ml PRN PRN Administration NEEDED PER PROVIDER ORDERS Sodium Chloride 10 ml 06/16/24 01:00 06/18/24 09:48 Sodium Chloride Flush 0.9% 10 Ml Syringe IVP 10 ml 0100,0900,1700 TORIBIO Administration Objective Vital Signs/Intake & Output Reviewed Vital Signs: Yes Vital Signs: Vital Signs x48h Temp Pulse Resp BP Pulse Ox 06/18/24 10:00 97.7 F 57 L 20 109/50 L 96 Intake & Output: Intake & Output 06/15/24 06/16/24 06/17/24 06/18/24 23:59 23:59 23:59 23:59 Intake Total 500 / 500 1212 / 1212 1180 / 1180 190 / 190 Output Total 0 / 0 390 / 390 280 / 280 150 / 150 Balance 500 / 500 822 / 822 900 / 900 40 / 40 Weight (kg) 79 kg 79 kg 82 kg 75.5 kg Objective General Appearance: positive No acute distress and Alert Eyes Bilateral: positive Normal inspection ENT: positive ENT inspection nml Neck: positive Nml inspection Respiratory: positive No respiratory distress and Breath sounds nml (decreased at the bases); negative Wheezes, Rales or Rhonchi Cardiovascular: positive No murmur and Irregularly irregular; negative Systolic murmur or Diastolic murmur Abdomen: positive Non-tender, No organomegaly and Nml bowel sounds; negative Hepatomegaly or Splenomegaly Back: positive Nml inspection Skin: positive Color nml Extremities: positive Pedal edema (improving appearance of edema - now 1+ ) Neurologic/Psychiatric: positive Oriented x3 and Mood/affect nml Lab Results 06/18/24 05:19 06/18/24 05:19 Other Labs: Lab Results x24hrs 06/18/24 Range/Units 05:19 WBC 8.8 (4.8-10.8) x10^3/uL RBC 2.71 L (4.20-5.40) 10^6/uL Hgb 8.5 L (12.0-16.0) g/dL Hct 26.1 L (37.0-47.0) % MCV 96.3 (81.0-99.0) fL MCH 31.4 H (27.0-31.0) pg MCHC 32.6 (32.0-36.0) g/dL RDW 15.1 H (12.0-15.0) % Plt Count 153 (130-450) 10^3/uL MPV 10.0 (7.9-10.8) fL Neut # (Auto) 7.5 H (1.5-6.6) 10^3/uL Lymph # (Auto) 0.8 L (1.5-3.5) 10^3/uL [place] # (Auto) 0.3 (0.0-1.0) 10^3/uL Eos # (Auto) 0.1 (0.0-0.7) 10^3/uL Baso # (Auto) 0.0 (0.0-0.1) 10^3/uL Absolute Nucleated RBC 0.00 x10^3/uL Nucleated RBC % 0.0 /100WBC PT 19.8 H (9.9-12.6) secs INR 1.9 H (0.8-1.2) Sodium 130 L (135-145) mmol/L Potassium 4.3 (3.5-4.5) mmol/L Chloride 98 L (101-111) mmol/L Carbon Dioxide 24 (21-32) mmol/L Anion Gap 8.0 (6-13) BUN 74 H (6-20) mg/dL Creatinine 2.3 H (0.6-1.3) mg/dL Estimated GFR (MDRD) 20 L (>89) Glucose 105 H (74-104) mg/dL Calcium 7.6 L (8.5-10.3) mg/dL Assessment/Plan Problem List (1) Acute exacerbation of CHF (congestive heart failure): Impression: Patient received diuresis over the last few days with improvement of the appearance of her lower extremity pedal edema. Creatinine is slowly worsening. She remains with poor urine output, less than 400 cc/day. Will hold diuretics today, recheck creatinine in a.m. Continue discussions with patient and regarding next steps including possible transfer for dialysis. Qualifiers: Heart failure type: unspecified Qualified Code(s): I50.9 - Heart failure, unspecified (2) UTI (urinary tract infection): Impression: Being treated for urinary tract infection with IV Rocephin, today is day 3. Qualifiers: Hematuria presence: without hematuria Urinary tract infection type: a cute cystitis Qualified Code(s): N30.00 - Acute cystitis without hematuria (3) CUBA (acute kidney injury): Impression: Baseline creatinine is 1.1-1.3. Has steadily increased to 2.3 this morning. Received few days of IV diuresis, in conjunction with albumin. Will hold diuresis at this time. Continue to monitor her creatinine closely. Will reach out to nephrology when next day or so if creatinine continues to worsen, and urine output continues to be in the wake of uric range. (4) Hyponatremia: Impression: Stable. (5) Chronic atrial fibrillation: Impression: Continue Coreg 25 mg twice daily. Will restart Eliquis 2.5 mg twice daily; patient qualifies for low-dose with elevated creatinine, as well as age. (6) Leg swelling: Impression: Secondary to CHF. Patient has lost about 5 kg of water weight since being here.
[2024-06-18] MEDS: APIXABAN 2.5 MG TABLET PO SCH (20:15)
[2024-06-19 05:38] LABS: BASOPHILS % (AUTO) 0.4 %; EOSINOPHILS # (AUTO) 0.1 10^3/uL (0.0-0.7); EOSINOPHILS % (AUTO) 1.3 %; HCT - HEMATOCRIT 24.4 % (37.0-47.0); LYMPHOCYTES # (AUTO) 0.8 10^3/uL (1.5-3.5); LYMPHOCYTES % (AUTO) 10.5 %; MEAN CORPUSCULAR HEMOGLOBIN 31.4 pg (27.0-31.0); MEAN CORPUSCULAR HGB CONC 32.8 g/dL (32.0-36.0); MEAN CORPUSCULAR VOLUME 95.7 fL (81.0-99.0); MEAN PLATELET VOLUME 9.8 fL (7.9-10.8); MONOCYTES # (AUTO) 0.3 10^3/uL (0.0-1.0); MONOCYTES % (AUTO) 4.2 %; NEUTROPHILS # (AUTO) 6.4 10^3/uL (1.5-6.6); NEUTROPHILS % (AUTO) 82.4 %; PLT - PLATELET COUNT 135 10^3/uL (130-450); RED BLOOD COUNT 2.55 10^6/uL (4.20-5.40); RED CELL DISTRIBUTION WIDTH 15.3 % (12.0-15.0); WHITE BLOOD COUNT 7.8 x10^3/uL (4.8-10.8)
[2024-06-19 05:46] LABS: INR 1.8 (0.8-1.2); PT - PROTHROMBIN TIME 19.4 secs (9.9-12.6)
[2024-06-19 05:50] LABS: CALCIUM 7.5 mg/dL (8.5-10.3); CREATININE 2.2 mg/dL (0.6-1.3); MAGNESIUM 2.2 mg/dL (1.7-2.3); POTASSIUM 4.2 mmol/L (3.5-4.5)
[2024-06-19] MEDS: SODIUM CHLORIDE 0.9% 250 ML IV ONE (09:22)
--- NOTE | 2024-06-19 11:43 | PROVIDER PROGRESS NOTE ---
Subjective Subjective Subjective: Patient feels okay this morning. She feels as if her legs are less swollen. She has no shortness of breath. She denies fevers, chills. Current Medications Current Medications Current Medications: Current Medications Generic Name Dose Route Start Last Admin Trade Name Freq PRN Reason Stop Dose Admin Acetaminophen 650 mg 06/15/24 21:07 Acetaminophen 325 Mg Tablet PO Q4HR PRN Pain 1 to 4, or Fever Apixaban 2.5 mg 06/18/24 21:00 06/19/24 09:22 Apixaban 2.5 Mg Tablet PO 2.5 mg BID TORIBIO Administration Calcium Carbonate/Glycine 1,500 mg 06/16/24 09:00 06/19/24 09:22 Calcium Carbonate Chew 500 Mg Tablet PO 1,500 mg DAILY TORIBIO Administration Carvedilol 25 mg 06/15/24 21:07 06/19/24 08:53 Carvedilol 12.5 Mg Tablet PO Not Given BID TORIBIO Ceftriaxone Sodium 1 gm 06/16/24 20:00 06/18/24 20:15 Ceftriaxone 1 Gm Vial IVP 1 gm Q24H TORIBIO Administration Dorzolamide HCl 1 drops 06/15/24 21:07 06/19/24 09:22 Dorzolamide 2% Ophth Drops EACHEYE 1 drops BID TORIBIO Administration Latanoprost 1 drops 06/15/24 21:07 06/18/24 20:15 Latanoprost 0.005% Ophth Drops EACHEYE 1 drops QPM TORIBIO Administration Lidocaine 1 patch 06/16/24 09:00 06/19/24 08:53 Lidocaine Patch 4% TOP Not Given DAILY TOIRBIO Ondansetron HCl 4 mg 06/15/24 21:07 Ondansetron Odt 4 Mg Tablet TL Q6HR PRN Nausea / Vomiting Oxycodone HCl 5 mg 06/15/24 21:07 Oxycodone 5 Mg Tablet PO Q4HR PRN Pain 5 to 7 Sodium Chloride 10 ml 06/15/24 21:07 06/18/24 20:15 Sodium Chloride Flush 0.9% 10 Ml Syringe IVP 10 ml PRN PRN Administration NEEDED PER PROVIDER ORDERS Sodium Chloride 10 ml 06/16/24 01:00 06/19/24 09:22 Sodium Chloride Flush 0.9% 10 Ml Syringe IVP 10 ml 0100,[id number],1700 TORIBIO Administration Objective Vital Signs/Intake & Output Reviewed Vital Signs: Yes Vital Signs: Vital Signs x48h Temp Pulse Resp BP Pulse Ox 06/19/24 08:40 97.2 F L 48 L 26 H 112/50 L 95 Intake & Output: Intake & Output 06/16/24 06/17/24 06/18/24 06/19/24 23:59 23:59 23:59 23:59 Intake Total 1212 / 1212 1180 / 1180 780 / 780 120 / 120 Output Total 390 / 390 280 / 280 250 / 250 200 / 200 Balance 822 / 822 900 / 900 530 / 530 -80 / -80 Weight (kg) 79 kg 82 kg 75.5 kg 74.5 kg Objective General Appearance: positive No acute distress and Alert Eyes Bilateral: positive Normal inspection ENT: positive ENT inspection nml Neck: positive Nml inspection Respiratory: positive No respiratory distress and Breath sounds nml (decreased at the bases); negative Wheezes, Rales or Rhonchi Cardiovascular: positive No murmur and Irregularly irregular; negative Systolic murmur or Diastolic murmur Abdomen: positive Non-tender, No organomegaly and Nml bowel sounds; negative Hepatomegaly or Splenomegaly Back: positive Nml inspection Skin: positive Color nml Extremities: positive Pedal edema (improving appearance of edema - now 1+ ) Neurologic/Psychiatric: positive Oriented x3 and Mood/affect nml Lab Results 06/19/24 05:20 06/19/24 05:20 Other Labs: Lab Results x24hrs 06/19/24 Range/Units 05:20 WBC 7.8 (4.8-10.8) x10^3/uL RBC 2.55 L (4.20-5.40) 10^6/uL Hgb 8.0 L (12.0-16.0) g/dL Hct 24.4 L (37.0-47.0) % MCV 95.7 (81.0-99.0) fL MCH 31.4 H (27.0-31.0) pg MCHC 32.8 (32.0-36.0) g/dL RDW 15.3 H (12.0-15.0) % Plt Count 135 (130-450) 10^3/uL MPV 9.8 (7.9-10.8) fL Neut # (Auto) 6.4 (1.5-6.6) 10^3/uL Lymph # (Auto) 0.8 L (1.5-3.5) 10^3/uL [place] # (Auto) 0.3 (0.0-1.0) 10^3/uL Eos # (Auto) 0.1 (0.0-0.7) 10^3/uL Baso # (Auto) 0.0 (0.0-0.1) 10^3/uL Absolute Nucleated RBC 0.00 x10^3/uL Nucleated RBC % 0.0 /100WBC PT 19.4 H (9.9-12.6) secs INR 1.8 H (0.8-1.2) Sodium 129 L (135-145) mmol/L Potassium 4.2 (3.5-4.5) mmol/L Chloride 99 L (101-111) mmol/L Carbon Dioxide 22 (21-32) mmol/L Anion Gap 8.0 (6-13) BUN 79 H (6-20) mg/dL Creatinine 2.2 H (0.6-1.3) mg/dL Estimated GFR (MDRD) 21 L (>89) Glucose 108 H (74-104) mg/dL Calcium 7.5 L (8.5-10.3) mg/dL Magnesium 2.2 (1.7-2.3) mg/dL Assessment/Plan Problem List (1) Acute exacerbation of CHF (congestive heart failure): Impression: Patient received diuresis over the last few days with improvement of the appearance of her lower extremity pedal edema. Creatinine is slowly worsening. She remains with poor urine output, less than 400 cc/day. Will hold diuretics, allow some gentle IVF rehydration, recheck creatinine. Continue discussions with patient and regarding next steps including possible transfer for dialysis. Qualifiers: Heart failure type: unspecified Qualified Code(s): I50.9 - Heart failure, unspecified (2) UTI (urinary tract infection): Impression: Being treated for urinary tract infection with IV Rocephin, today is day 4. Qualifiers: Hematuria presence: without hematuria Urinary tract infection type: a cute cystitis Qualified Code(s): N30.00 - Acute cystitis without hematuria (3) CUBA (acute kidney injury): Impression: Baseline creatinine is 1.1-1.3. Has steadily increased to 2.2. Received few days of IV diuresis, in conjunction with albumin. Will reach out to nephrology if in the next day or so, the creatinine continues to worsen, and urine output continues to be in the oliguric range. (4) Hyponatremia: Impression: Stable. (5) Chronic atrial fibrillation: Impression: Continue Coreg 25 mg twice daily. Will restart Eliquis 2.5 mg twice daily; patient qualifies for low-dose with elevated creatinine, as well as age. (6) Leg swelling: Impression: Secondary to CHF. Patient has lost about 5 kg of water weight since being here.
[2024-06-19 15:18] LABS: CALCIUM 7.7 mg/dL (8.5-10.3); CREATININE 2.2 mg/dL (0.6-1.3); POTASSIUM 4.2 mmol/L (3.5-4.5)
[2024-06-20 05:44] LABS: BASOPHILS % (AUTO) 0.4 %; EOSINOPHILS # (AUTO) 0.1 10^3/uL (0.0-0.7); HCT - HEMATOCRIT 25.5 % (37.0-47.0); HGB - HEMOGLOBIN 8.2 g/dL (12.0-16.0); LYMPHOCYTES % (AUTO) 11.3 %; MEAN CORPUSCULAR HEMOGLOBIN 31.5 pg (27.0-31.0); MEAN CORPUSCULAR HGB CONC 32.2 g/dL (32.0-36.0); MEAN CORPUSCULAR VOLUME 98.1 fL (81.0-99.0); MEAN PLATELET VOLUME 9.9 fL (7.9-10.8); MONOCYTES # (AUTO) 0.4 10^3/uL (0.0-1.0); MONOCYTES % (AUTO) 4.5 %; NEUTROPHILS # (AUTO) 6.9 10^3/uL (1.5-6.6); NEUTROPHILS % (AUTO) 81.8 %; PLT - PLATELET COUNT 130 10^3/uL (130-450); RED CELL DISTRIBUTION WIDTH 15.3 % (12.0-15.0); WHITE BLOOD COUNT 8.4 x10^3/uL (4.8-10.8)
[2024-06-20 05:47] LABS: INR 1.9 (0.8-1.2); PT - PROTHROMBIN TIME 20.1 secs (9.9-12.6)
[2024-06-20 05:59] LABS: MAGNESIUM 2.2 mg/dL (1.7-2.3)
[2024-06-20 06:09] LABS: CALCIUM 7.5 mg/dL (8.5-10.3); CREATININE 2.2 mg/dL (0.6-1.3); POTASSIUM 4.4 mmol/L (3.5-4.5)
[2024-06-20] MEDS: SODIUM CHLORIDE 0.9% 250 ML IV ONE (08:08)
--- NOTE | 2024-06-20 09:29 | PROVIDER PROGRESS NOTE ---
Subjective Subjective Subjective: Patient feels okay this morning. She feels as if her legs are less swollen. She has no shortness of breath. She denies fevers, chills. Current Medications Current Medications Current Medications: Current Medications Generic Name Dose Route Start Last Admin Trade Name Freq PRN Reason Stop Dose Admin Acetaminophen 650 mg 06/15/24 21:07 Acetaminophen 325 Mg Tablet PO Q4HR PRN Pain 1 to 4, or Fever Apixaban 2.5 mg 06/18/24 21:00 06/20/24 08:09 Apixaban 2.5 Mg Tablet PO 2.5 mg BID TORIBIO Administration Calcium Carbonate/Glycine 1,500 mg 06/16/24 09:00 06/20/24 08:08 Calcium Carbonate Chew 500 Mg Tablet PO 1,500 mg DAILY TORIBIO Administration Carvedilol 25 mg 06/15/24 21:07 06/20/24 08:09 Carvedilol 12.5 Mg Tablet PO 25 mg BID TORIBIO Administration Ceftriaxone Sodium 1 gm 06/16/24 20:00 06/19/24 20:52 Ceftriaxone 1 Gm Vial IVP 1 gm Q24H TORIBIO Administration Dorzolamide HCl 1 drops 06/15/24 21:07 06/20/24 08:08 Dorzolamide 2% Ophth Drops EACHEYE 1 drops BID TORIBIO Administration Sodium Chloride 250 mls @ 75 mls/hr 06/20/24 07:39 06/20/24 08:08 Normal Saline 0.9% IV 06/20/24 10:58 75 mls/hr ONCE ONE Administration Latanoprost 1 drops 06/15/24 21:07 06/19/24 20:52 Latanoprost 0.005% Ophth Drops EACHEYE 1 drops QPM TORIBIO Administration Lidocaine 1 patch 06/16/24 09:00 06/20/24 08:09 Lidocaine Patch 4% TOP Not Given DAILY TORIBIO Ondansetron HCl 4 mg 06/15/24 21:07 Ondansetron Odt 4 Mg Tablet TL Q6HR PRN Nausea / Vomiting Oxycodone HCl 5 mg 06/15/24 21:07 Oxycodone 5 Mg Tablet PO Q4HR PRN Pain 5 to 7 Sodium Chloride 10 ml 06/15/24 21:07 06/18/24 20:15 Sodium Chloride Flush 0.9% 10 Ml Syringe IVP 10 ml PRN PRN Administration NEEDED PER PROVIDER ORDERS Sodium Chloride 10 ml 06/16/24 01:00 06/20/24 08:09 Sodium Chloride Flush 0.9% 10 Ml Syringe IVP 10 ml 0100,0900,1700 TORIBIO Administration Objective Vital Signs/Intake & Output Reviewed Vital Signs: Yes Vital Signs: Vital Signs x48h Temp Pulse Resp BP Pulse Ox 06/20/24 08:05 97.5 F L 57 L 20 125/50 L 94 Intake & Output: Intake & Output 06/17/24 06/18/24 06/19/24 06/20/24 23:59 23:59 23:59 23:59 Intake Total 1180 / 1180 780 / 780 540 / 540 Output Total 280 / 280 250 / 250 300 / 300 550 / 550 Balance 900 / 900 530 / 530 240 / 240 -550 / -550 Weight (kg) 82 kg 75.5 kg 74.5 kg 74.5 kg Objective General Appearance: positive No acute distress and Alert Eyes Bilateral: positive Normal inspection ENT: positive ENT inspection nml Neck: positive Nml inspection Respiratory: positive No respiratory distress and Breath sounds nml (decreased at the bases); negative Wheezes, Rales or Rhonchi Cardiovascular: positive No murmur and Irregularly irregular; negative Systolic murmur or Diastolic murmur Abdomen: positive Non-tender, No organomegaly and Nml bowel sounds; negative Hepatomegaly or Splenomegaly Back: positive Nml inspection Skin: positive Color nml Extremities: positive Pedal edema (improving appearance of edema - now 1+ ) Neurologic/Psychiatric: positive Oriented x3 and Mood/affect nml Lab Results 06/20/24 05:35 06/20/24 05:35 Other Labs: Lab Results x24hrs 06/20/24 06/19/24 Range/Units 05:35 14:59 WBC 8.4 (4.8-10.8) x10^3/uL RBC 2.60 L (4.20-5.40) 10^6/uL Hgb 8.2 L (12.0-16.0) g/dL Hct 25.5 L (37.0-47.0) % MCV 98.1 (81.0-99.0) fL MCH 31.5 H (27.0-31.0) pg MCHC 32.2 (32.0-36.0) g/dL RDW 15.3 H (12.0-15.0) % Plt Count 130 (130-450) 10^3/uL MPV 9.9 (7.9-10.8) fL Neut # (Auto) 6.9 H (1.5-6.6) 10^3/uL Lymph # (Auto) 1.0 L (1.5-3.5) 10^3/uL [place] # (Auto) 0.4 (0.0-1.0) 10^3/uL Eos # (Auto) 0.1 (0.0-0.7) 10^3/uL Baso # (Auto) 0.0 (0.0-0.1) 10^3/uL Absolute Nucleated RBC 0.00 x10^3/uL Nucleated RBC % 0.0 /100WBC PT 20.1 H (9.9-12.6) secs INR 1.9 H (0.8-1.2) Sodium 129 L 130 L (135-145) mmol/L Potassium 4.4 4.2 (3.5-4.5) mmol/L Chloride 99 L 96 L (101-111) mmol/L Carbon Dioxide 23 25 (21-32) mmol/L Anion Gap 7.0 9.0 (6-13) BUN 81 H* 79 H (6-20) mg/dL Creatinine 2.2 H 2.2 H (0.6-1.3) mg/dL Estimated GFR (MDRD) 21 L 21 L (>89) Glucose 104 169 H (74-104) mg/dL Calcium 7.5 L 7.7 L (8.5-10.3) mg/dL Magnesium 2.2 (1.7-2.3) mg/dL Assessment/Plan Problem List (1) Acute exacerbation of CHF (congestive heart failure): Impression: Patient received diuresis over the last few days with improvement of the appearance of her lower extremity pedal edema. Creatinine is stable. Her 24 urine output is slowly improving; 750 mL over the last 24 hours. Continue discussions with patient and regarding next steps including possible transfer for dialysis. Qualifiers: Heart failure type: unspecified Qualified Code(s): I50.9 - Heart failure, unspecified (2) UTI (urinary tract infection): Impression: Being treated for urinary tract infection with IV Rocephin, today is day 5, last day of treatment. Qualifiers: Hematuria presence: without hematuria Urinary tract infection type: a cute cystitis Qualified Code(s): N30.00 - Acute cystitis without hematuria (3) CUBA (acute kidney injury): Impression: Baseline creatinine is 1.1-1.3. Has steadily increased to 2.2. Received few days of IV diuresis, in conjunction with albumin. Will reach out to nephrology if in the next day or so, the creatinine continues to worsen, and urine output continues to be in the oliguric range. (4) Hyponatremia: Impression: Stable. (5) Chronic atrial fibrillation: Impression: Continue Coreg 25 mg twice daily. Will restart Eliquis 2.5 mg twice daily; patient qualifies for low-dose with elevated creatinine, as well as age. (6) Leg swelling: Impression: Secondary to CHF. Patient has lost about 5 kg of water weight since being here.
[2024-06-21] MEDS: oxyCODONE 5 MG TABLET PO PRN (04:51)
[2024-06-21 05:19] LABS: HCT - HEMATOCRIT 27.2 % (37.0-47.0); HGB - HEMOGLOBIN 8.9 g/dL (12.0-16.0); MEAN CORPUSCULAR HGB CONC 32.7 g/dL (32.0-36.0); MEAN CORPUSCULAR VOLUME 97.8 fL (81.0-99.0); MEAN PLATELET VOLUME 9.9 fL (7.9-10.8); RED BLOOD COUNT 2.78 10^6/uL (4.20-5.40); RED CELL DISTRIBUTION WIDTH 15.2 % (12.0-15.0); WHITE BLOOD COUNT 8.1 x10^3/uL (4.8-10.8)
[2024-06-21 05:26] LABS: PT - PROTHROMBIN TIME 21.4 secs (9.9-12.6)
[2024-06-21 05:29] LABS: MAGNESIUM 2.4 mg/dL (1.7-2.3)
[2024-06-21 05:35] LABS: CALCIUM 7.7 mg/dL (8.5-10.3); CREATININE 2.3 mg/dL (0.6-1.3); POTASSIUM 4.8 mmol/L (3.5-4.5)
--- NOTE | 2024-06-21 09:40 | PROVIDER PROGRESS NOTE ---
Subjective Subjective Subjective: Patient feels okay this morning. She feels as if her legs are less swollen. She has no shortness of breath. She denies fevers, chills. She is lethargic, sleepy. This morning, her creatinine worsened. Her urine output remains low. I spoke with r and d lab technician, Max Magallon at [facility]. She is likely not going to be a good candidate for dialysis. He recommends holding fluids diuretics at this time, placing a Preciado catheter, and continuing to monitor her creatinine. I spoke with her at bedside. We discussed the option of possible dialysis, versus home with hospice. She states that she wants her to be comfortable, and wants to elect for hospice. She would like to give her another day or so, as per the nephrology recommendations prior to enrolling in hospice. With hospice care, she would like her to be at home. She will need caregivers at home. Current Medications Current Medications Current Medications: Current Medications Generic Name Dose Route Start Last Admin Trade Name Freq PRN Reason Stop Dose Admin Acetaminophen 650 mg 06/15/24 21:07 Acetaminophen 325 Mg Tablet PO Q4HR PRN Pain 1 to 4, or Fever Apixaban 2.5 mg 06/18/24 21:00 06/21/24 08:45 Apixaban 2.5 Mg Tablet PO 2.5 mg BID TORIBIO Administration Calcium Carbonate/Glycine 1,500 mg 06/16/24 09:00 06/21/24 08:45 Calcium Carbonate Chew 500 Mg Tablet PO 1,500 mg DAILY TORIBIO Administration Carvedilol 25 mg 06/15/24 21:07 06/21/24 08:46 Carvedilol 12.5 Mg Tablet PO Not Given BID TORIBIO Ceftriaxone Sodium 1 gm 06/16/24 20:00 06/20/24 20:00 Ceftriaxone 1 Gm Vial IVP 1 gm Q24H TORIBIO Administration Dorzolamide HCl 1 drops 06/15/24 21:07 06/21/24 08:44 Dorzolamide 2% Ophth Drops EACHEYE 1 drops BID TORIBIO Administration Latanoprost 1 drops 06/15/24 21:07 06/20/24 20:07 Latanoprost 0.005% Ophth Drops EACHEYE 1 drops QPM TORIBIO Administration Lidocaine 1 patch 06/16/24 09:00 06/21/24 08:44 Lidocaine Patch 4% TOP 1 patch DAILY TORIBIO Administration Ondansetron HCl 4 mg 06/15/24 21:07 Ondansetron Odt 4 Mg Tablet TL Q6HR PRN Nausea / Vomiting Oxycodone HCl 5 mg 06/15/24 21:07 06/21/24 04:51 Oxycodone 5 Mg Tablet PO 5 mg Q4HR PRN Administration Pain 5 to 7 Sodium Chloride 10 ml 06/15/24 21:07 06/18/24 20:15 Sodium Chloride Flush 0.9% 10 Ml Syringe IVP 10 ml PRN PRN Administration NEEDED PER PROVIDER ORDERS Sodium Chloride 10 ml 06/16/24 01:00 06/21/24 08:46 Sodium Chloride Flush 0.9% 10 Ml Syringe IVP 10 ml 0100,0900,1700 TORIBIO Administration Objective Vital Signs/Intake & Output Reviewed Vital Signs: Yes Vital Signs: Vital Signs x48h Temp Pulse Resp BP Pulse Ox O2 Flow Rate 06/21/24 08:20 97.7 F 52 L 16 129/66 96 1 Intake & Output: Intake & Output 06/18/24 06/19/24 06/20/24 06/21/24 23:59 23:59 23:59 23:59 Intake Total 780 / 780 540 / 540 570 / 570 50 / 50 Output Total 250 / 250 300 / 300 700 / 700 Balance 530 / 530 240 / 240 -130 / -130 50 / 50 Weight (kg) 75.5 kg 74.5 kg 74.5 kg 74.5 kg Objective General Appearance: positive No acute distress and Alert Eyes Bilateral: positive Normal inspection ENT: positive ENT inspection nml Neck: positive Nml inspection Respiratory: positive No respiratory distress and Breath sounds nml (decreased at the bases); negative Wheezes, Rales or Rhonchi Cardiovascular: positive No murmur and Irregularly irregular; negative Systolic murmur or Diastolic murmur Abdomen: positive Non-tender, No organomegaly and Nml bowel sounds; negative Hepatomegaly or Splenomegaly Back: positive Nml inspection Skin: positive Color nml Extremities: positive Pedal edema (improving appearance of edema - now 1+ ) Neurologic/Psychiatric: positive Oriented x3 and Mood/affect nml Lab Results 06/21/24 05:10 06/21/24 05:10 Other Labs: Lab Results x24hrs 06/21/24 Range/Units 05:10 WBC 8.1 (4.8-10.8) x10^3/uL RBC 2.78 L (4.20-5.40) 10^6/uL Hgb 8.9 L (12.0-16.0) g/dL Hct 27.2 L (37.0-47.0) % MCV 97.8 (81.0-99.0) fL MCH 32.0 H (27.0-31.0) pg MCHC 32.7 (32.0-36.0) g/dL RDW 15.2 H (12.0-15.0) % Plt Count 120 L (130-450) 10^3/uL MPV 9.9 (7.9-10.8) fL PT 21.4 H (9.9-12.6) secs INR 2.0 H (0.8-1.2) Sodium 130 L (135-145) mmol/L Potassium 4.8 H (3.5-4.5) mmol/L Chloride 98 L (101-111) mmol/L Carbon Dioxide 25 (21-32) mmol/L Anion Gap 7.0 (6-13) BUN 86 H* (6-20) mg/dL Creatinine 2.3 H (0.6-1.3) mg/dL Estimated GFR (MDRD) 20 L (>89) Glucose 110 H (74-104) mg/dL Calcium 7.7 L (8.5-10.3) mg/dL Magnesium 2.4 H (1.7-2.3) mg/dL Assessment/Plan Problem List (1) CUBA (acute kidney injury): Impression: Patient received diuresis over the last few days with improvement of the appearance of her lower extremity pedal edema. We then held diuresis, gave her some gentle IV fluid rehydration. Initially her urine output picked up, but is now decreased back into the oliguric range. I spoke with nephrology, Max Magallon, at [facility] about possible transfer, need for hemodialysis in near future. He does not believe that she would be a good candidate for dialysis, although he is agreeable to transfer if needed. He recommends placing a Preciado catheter, stopping Lasix and fluids, and seeing if her creatinine stabilizes. I spoke with the at bedside about neck steps including possible dialysis. The patient herself is very sleepy today, although she responds intermittently. states that she wants her to be comfortable, and is interested in hospice. They have already completed a hospice informational. Plan is to see if there is any improvement in the kidneys in the next 2 days in terms of creatinine, BUN, as well as urine output; if there is or if she stabilizes, she will likely go back to her extended care bed at [facility]. If they worsen, plan will be hospice at home. (2) UTI (urinary tract infection): Impression: Completed treatment for urinary tract infection with IV Rocephin. Qualifiers: Hematuria presence: without hematuria Urinary tract infection type: a cute cystitis Qualified Code(s): N30.00 - Acute cystitis without hematuria (3) Hyponatremia: Impression: Stable. (4) Acute exacerbation of CHF (congestive heart failure): Impression: Patient with improved lower extremity swelling, although still extensive. On 1L oxygen. Holding diuresis as stated above. Qualifiers: Heart failure type: unspecified Qualified Code(s): I50.9 - Heart failure, unspecified (5) Chronic atrial fibrillation: Impression: Continue Coreg 25 mg twice daily. Will restart Eliquis 2.5 mg twice daily; patient qualifies for low-dose with elevated creatinine, as well as age. (6) Leg swelling: Impression: Secondary to CHF. Patient has lost about 5 kg of water weight since being here.
[2024-06-22] MEDS: LORazepam 2 MG/ML VIAL IVP PRN (02:43)
[2024-06-22] MEDS: MORPHINE 2 MG/ML CARPUJECT IVP SCH (04:54)
[2024-06-22 05:46] LABS: HCT - HEMATOCRIT 25.1 % (37.0-47.0); HGB - HEMOGLOBIN 7.8 g/dL (12.0-16.0); MEAN CORPUSCULAR HEMOGLOBIN 31.1 pg (27.0-31.0); MEAN CORPUSCULAR HGB CONC 31.1 g/dL (32.0-36.0); MEAN PLATELET VOLUME 9.9 fL (7.9-10.8); RED BLOOD COUNT 2.51 10^6/uL (4.20-5.40); RED CELL DISTRIBUTION WIDTH 15.6 % (12.0-15.0); WHITE BLOOD COUNT 10.3 x10^3/uL (4.8-10.8)
[2024-06-22 06:01] LABS: MAGNESIUM 2.4 mg/dL (1.7-2.3)
[2024-06-22 06:04] LABS: CALCIUM 7.7 mg/dL (8.5-10.3); CREATININE 2.7 mg/dL (0.6-1.3); POTASSIUM 5.2 mmol/L (3.5-4.5)
[2024-06-22] MEDS: DEXTROSE 50% ABBOJECT 25 GM/50 ML SYRINGE IVP ONE (08:05)
[2024-06-22] MEDS: INSULIN REGULAR, HUMAN 300 UNIT/3 ML PEN IVP ONE (08:06)
[2024-06-22] MEDS: FUROSEMIDE 40 MG/4 ML VIAL IVP SCH (08:06)
[2024-06-22] MEDS: CONCENTRATED ALBUTEROL NEB 2.5 MG/0.5 ML INH STA (09:44)
--- NOTE | 2024-06-22 09:44 | PROVIDER PROGRESS NOTE ---
Subjective Subjective Subjective: Patient is a 88-year-old female with a history of congestive heart failure with ejection fraction of 35% who presented with worsening lower extremity swelling. She was extensively diuresed in the first few days here, and her creatinine has continued to increase. She has poor urine output, and the oliguric range for the last few days. We then rehydrated her with some gentle IV fluid rehydration, i.e., 250 cc/day. On 06/21, I spoke with dispatch clerk, Max Magallon at [facility]. She is likely not going to be a good candidate for dialysis. He recommends holding fluids diuretics at this time, placing a Preciado catheter, and continuing to monitor her creatinine. Overnight, she appeared to worsen. She had increasing shortness of breath, and required an increase of her oxygen to 15 L. This morning, this has been decreased to 6 L via nasal cannula. However, patient has still not made urine, i.e. only 235 cc in the last 24 hours. Her creatinine is continued to increase, and she is now having hyperkalemia. Yesterday, I spoke with her at bedside. We discussed the option of possible dialysis, versus home with hospice. She states that she wants her to be comfortable, and wants to elect for hospice. She would like to give her another day or so, as per the nephrology recommendations prior to enrolling in hospice. With hospice care, she would like her to be at home. She will need caregivers at home. I will confirm that she would still like to proceed with hospice, as opposed to transfer today, and will then take the steps to enroll the patient in hospice. Unfortunately, yesterday evening, patient's fell. She likely has a hip fracture, and is currently being transferred to [place]. I learned this from patient's friend at bedside, Fredy. She also states that the patient's had said that she was going to reach out to the patient's brother to make the final decision on hospice. After our conversation yesterday, I do know that the does not want to escalate care to dialysis or transfer the patient. We will continue to treat her conservatively here. She is worsening. Current Medications Current Medications Current Medications: Current Medications Generic Name Dose Route Start Last Admin Trade Name Freq PRN Reason Stop Dose Admin Acetaminophen 650 mg 06/15/24 21:07 Acetaminophen 325 Mg Tablet PO Q4HR PRN Pain 1 to 4, or Fever Apixaban 2.5 mg 06/18/24 21:00 06/21/24 20:51 Apixaban 2.5 Mg Tablet PO 2.5 mg BID TORIBIO Administration Calcium Carbonate/Glycine 1,500 mg 06/16/24 09:00 06/21/24 08:45 Calcium Carbonate Chew 500 Mg Tablet PO 1,500 mg DAILY TORIBIO Administration Carvedilol 25 mg 06/15/24 21:07 06/21/24 20:51 Carvedilol 12.5 Mg Tablet PO Not Given BID TORIBIO Dorzolamide HCl 1 drops 06/15/24 21:07 06/21/24 20:49 Dorzolamide 2% Ophth Drops EACHEYE 1 drops BID TORIBIO Administration Furosemide 40 mg 06/22/24 08:00 06/22/24 09:04 Furosemide 40 Mg/4 Ml Vial IVP 40 mg BIDDIURETIC TORIBIO Administration Latanoprost 1 drops 06/15/24 21:07 06/21/24 20:50 Latanoprost 0.005% Ophth Drops EACHEYE 1 drops QPM TORIBIO Administration Lidocaine 1 patch 06/16/24 09:00 06/21/24 08:44 Lidocaine Patch 4% TOP 1 patch DAILY TORIBIO Administration Ondansetron HCl 4 mg 06/15/24 21:07 Ondansetron Odt 4 Mg Tablet TL Q6HR PRN Nausea / Vomiting Oxycodone HCl 5 mg 06/15/24 21:07 06/22/24 02:02 Oxycodone 5 Mg Tablet PO 5 mg Q4HR PRN Administration Pain 5 to 7 Sodium Chloride 10 ml 06/15/24 21:07 06/22/24 04:54 Sodium Chloride Flush 0.9% 10 Ml Syringe IVP 10 ml PRN PRN Administration NEEDED PER PROVIDER ORDERS Sodium Chloride 10 ml 06/16/24 01:00 06/22/24 08:07 Sodium Chloride Flush 0.9% 10 Ml Syringe IVP 10 ml 0100,[id number],1700 TORIBIO Administration Objective Vital Signs/Intake & Output Reviewed Vital Signs: Yes Vital Signs: Vital Signs x48h Temp Pulse Resp BP Pulse Ox O2 Flow Rate 06/22/24 09:04 64 16 103/35 L 94 6 06/22/24 08:39 97.5 F L 54 L 24 104/38 L 99 15 06/22/24 07:00 15 06/22/24 03:45 92 15 06/22/24 02:02 31 H 91 L 15 06/22/24 01:48 42 L 29 H 112/44 L 84 L 12 Intake & Output: Intake & Output 06/19/24 06/20/24 06/21/24 06/22/24 23:59 23:59 23:59 23:59 Intake Total 540 / 540 570 / 570 440 / 440 Output Total 300 / 300 700 / 700 235 / 235 Balance 240 / 240 -130 / -130 205 / 205 -25 25 Weight (kg) 74.5 kg 74.5 kg 74.5 kg 74.5 kg Objective General Appearance: positive No acute distress and Alert Eyes Bilateral: positive Normal inspection ENT: positive ENT inspection nml Neck: positive Nml inspection Respiratory: positive No respiratory distress and Breath sounds nml (decreased at the bases); negative Wheezes, Rales or Rhonchi Cardiovascular: positive No murmur and Irregularly irregular; negative Systolic murmur or Diastolic murmur Abdomen: positive Non-tender, No organomegaly and Nml bowel sounds; negative Hepatomegaly or Splenomegaly Back: positive Nml inspection Skin: positive Color nml Extremities: positive Pedal edema (improving appearance of edema - now 1+ ) Neurologic/Psychiatric: positive Oriented x3 and Mood/affect nml Lab Results 06/22/24 05:34 06/22/24 05:34 Other Labs: Lab Results x24hrs 06/22/24 Range/Units 05:34 WBC 10.3 (4.8-10.8) x10^3/uL RBC 2.51 L (4.20-5.40) 10^6/uL Hgb 7.8 L (12.0-16.0) g/dL Hct 25.1 L (37.0-47.0) % MCV 100.0 H (81.0-99.0) fL MCH 31.1 H (27.0-31.0) pg MCHC 31.1 L (32.0-36.0) g/dL RDW 15.6 H (12.0-15.0) % Plt Count 126 L (130-450) 10^3/uL MPV 9.9 (7.9-10.8) fL Sodium 130 L (135-145) mmol/L Potassium 5.2 H (3.5-4.5) mmol/L Chloride 98 L (101-111) mmol/L Carbon Dioxide 25 (21-32) mmol/L Anion Gap 7.0 (6-13) BUN 91 H* (6-20) mg/dL Creatinine 2.7 H (0.6-1.3) mg/dL Estimated GFR (MDRD) 17 L (>89) Glucose 112 H (74-104) mg/dL Calcium 7.7 L (8.5-10.3) mg/dL Magnesium 2.4 H (1.7-2.3) mg/dL Assessment/Plan Problem List (1) CUBA (acute kidney injury): Impression: Patient received diuresis over the last few days with improvement of the appearance of her lower extremity pedal edema. We then held diuresis, gave her some gentle IV fluid rehydration. Initially her urine output picked up, but is now decreased back into the oliguric range. I spoke with nephrology, Max Magallon, at [facility] about possible transfer, need for hemodialysis in near future. He does not believe that she would be a good candidate for dialysis, although he is agreeable to transfer if needed. He recommends placing a Preciado catheter, stopping Lasix and fluids, and seeing if her creatinine stabilizes. I spoke with the at bedside on 06/21 about next steps including possible dialysis. The patient herself is very sleepy today, although she responds intermittently. states that she wants her to be comfortable, and is interested in hospice. They have already completed a hospice informational. Plan is to see if there is any improvement in the kidneys in the next 2 days in terms of creatinine, BUN, as well as urine output; if there is or if she stabilizes, she will likely go back to her extended care bed at [facility]. If they worsen, plan will be hospice at home. Overnight, her creatinine worsened, she now has hyperkalemia, and is requiring increasing oxygen. Unfortunately, yesterday evening, patient's fell. She likely has a hip fracture, and is currently being transferred to [place]. I learned this from patient's friend at bedside, Fredy. She also states that the patient's had said that she was going to reach out to the patient's brother to make the final decision on hospice. After our conversation yesterday, I do know that the does not want to escalate care to dialysis or transfer the patient. We will continue to treat her conservatively here. She is worsening in terms of urine output and creatinine. In the meantime, have ordered hyperkalemia cocktail including insulin, D50, nebulized albuterol. I have also ordered 1 dose of IV Lasix. (2) UTI (urinary tract infection): Impression: Completed treatment for urinary tract infection with IV Rocephin. Qualifiers: Hematuria presence: without hematuria Urinary tract infection type: a cute cystitis Qualified Code(s): N30.00 - Acute cystitis without hematuria (3) Hyponatremia: Impression: Stable. (4) Acute exacerbation of CHF (congestive heart failure): Impression: Worsening has patient has not made sufficient urine. Patient with improved lower extremity swelling, although still extensive. On 6L oxygen. Qualifiers: Heart failure type: unspecified Qualified Code(s): I50.9 - Heart failure, unspecified (5) Chronic atrial fibrillation: Impression: Continue Coreg 25 mg twice daily. Will restart Eliquis 2.5 mg twice daily; patient qualifies for low-dose with elevated creatinine, as well as age. (6) Leg swelling: Impression: Secondary to CHF. Patient has lost about 5 kg of water weight since being here.
[2024-06-22] MEDS ORDERED: haloperidoL 1 MG TABLET PO PRN (17:10)
[2024-06-22] MEDS: ACETAMINOPHEN 1,000 MG/100 ML 1,000 MG/100 ML BAG IV PRN (18:11)
[2024-06-22] MEDS: MORPHINE 2 MG/ML CARPUJECT IVP PRN (23:05)
[2024-06-22] MEDS: LORazepam 0.5 MG TABLET PO PRN (23:11)
[2024-06-23 08:41] VITALS: O2SAT 83
[2024-06-23 16:06] VITALS: BP 94/38; TEMP 97.5
[2024-06-23] MEDS: LORazepam 2 MG/ML VIAL IVP PRN (16:44)
[2024-06-23] MEDS: SCOPOLAMINE PATCH TOP SCH (16:44)
[2024-06-23] MEDS: MORPHINE 2 MG/ML CARPUJECT IVP PRN (16:44)
--- NOTE | 2024-06-23 18:17 | PROVIDER PROGRESS NOTE ---
Subjective Prog Note Date Prog Note Date: 06/23/24 Prog Note Time: 08:45 Subjective Pt reports feeling: No change Current Medications Current Medications Current Medications: Current Medications Generic Name Dose Route Start Last Admin Trade Name Freq PRN Reason Stop Dose Admin Acetaminophen 650 mg 06/15/24 21:07 Acetaminophen 325 Mg Tablet PO Q4HR PRN Pain 1 to 4, or Fever Dorzolamide HCl 1 drops 06/15/24 21:07 06/23/24 09:18 Dorzolamide 2% Ophth Drops EACHEYE 1 drops BID TORIBIO Administration Haloperidol 1 mg 06/22/24 17:10 Haloperidol 1 Mg Tablet PO Q6H PRN Nausea / Vomiting Acetaminophen 1,000 mg in 100 mls @ 400 mls/hr 06/22/24 17:10 06/22/24 18:30 Acetaminophen IV Infused Q6HR PRN Infusion Moderate Pain (Level 4-6) Latanoprost 1 drops 06/15/24 21:07 06/22/24 21:06 Latanoprost 0.005% Ophth Drops EACHEYE Not Given QPM TORIBIO Lidocaine 1 patch 06/16/24 09:00 06/23/24 09:59 Lidocaine Patch 4% TOP Not Given DAILY TORIBIO Lorazepam 1 mg 06/23/24 16:25 06/23/24 16:44 Lorazepam 2 Mg/Ml Vial IVP 1 mg Q1HR PRN Administration Anxiety Morphine Sulfate 2 mg 06/23/24 16:27 06/23/24 16:44 Morphine 2 Mg/Ml Carpuject IVP 2 mg Q1H PRN Administration PAIN 1-4 Ondansetron HCl 4 mg 06/15/24 21:07 Ondansetron Odt 4 Mg Tablet TL Q6HR PRN Nausea / Vomiting Oxycodone HCl 5 mg 06/15/24 21:07 06/22/24 02:02 Oxycodone 5 Mg Tablet PO 5 mg Q4HR PRN Administration Pain 5 to 7 Scopolamine HBr 1 patch 06/23/24 17:00 06/23/24 16:44 Scopolamine Patch TOP 1 patch Q3D TORIBIO Administration Sodium Chloride 10 ml 06/15/24 21:07 06/22/24 04:54 Sodium Chloride Flush 0.9% 10 Ml Syringe IVP 10 ml PRN PRN Administration NEEDED PER PROVIDER ORDERS Sodium Chloride 10 ml 06/16/24 01:00 06/23/24 15:38 Sodium Chloride Flush 0.9% 10 Ml Syringe IVP 10 ml 0100,0900,1700 TORIBIO Administration Objective Vital Signs/Intake & Output Reviewed Vital Signs: Yes Vital Signs: Vital Signs x48h Temp Resp BP O2 Flow Rate 06/23/24 16:04 36.4 C L 14 94/38 L 4 Intake & Output: Intake & Output 06/20/24 06/21/24 06/22/24 06/23/24 23:59 23:59 23:59 23:59 Intake Total 570 / 570 440 / 440 100 / 100 Output Total 700 / 700 235 / 235 85 / 85 Balance -130 / -130 205 / 205 Weight (kg) 74.5 kg 74.5 kg 74.5 kg 75.5 kg Objective General Appearance: positive Lethargic (Patient demented and partially sedated, but occasionally moans and denies pain when asked directly) Respiratory: positive No respiratory distress and Breath sounds nml (decreased at the bases); negative Wheezes, Rales or Rhonchi Cardiovascular: positive No murmur and Irregularly irregular; negative Systolic murmur or Diastolic murmur Abdomen: positive Non-tender, No organomegaly and Nml bowel sounds; negative Hepatomegaly or Splenomegaly Back: positive Nml inspection Extremities: positive Pedal edema (improving appearance of edema - now 1+ ) Lab Results 06/22/24 05:34 06/22/24 05:34 Diagnostic Imaging Diagnostic Imaging Results: positive Final report reviewed Assessment/Plan Problem List (1) CUBA (acute kidney injury): Impression: * Patient was transition to comfort care on 06/22/2024 * Continuing plans with comfort care order set including morphine and Ativan for comfort * Possible expiration and hospital versus hospice transition (2) UTI (urinary tract infection): Qualifiers: Hematuria presence: without hematuria Urinary tract infection type: a cute cystitis Qualified Code(s): N30.00 - Acute cystitis without hematuria (3) Hyponatremia: (4) Acute exacerbation of CHF (congestive heart failure): Qualifiers: Heart failure type: unspecified Qualified Code(s): I50.9 - Heart failure, unspecified (5) Chronic atrial fibrillation: (6) Leg swelling:
--- NOTE | 2024-07-06 14:05 | Discharge Summary ---
Discharge Summary Admit Date: 06/15/24 Discharge Date: 06/23/24 Code Status: Do Not Attempt Resuscitation DIAGNOSES Discharge Diagnoses with Status of Each Condition: 1) CUBA (acute kidney injury): (2) UTI (urinary tract infection): Qualifiers: Hematuria presence: without hematuria Urinary tract infection type: a cute cystitis Qualified Code(s): N30.00 - Acute cystitis without hematuria (3) Hyponatremia: (4) Acute exacerbation of CHF (congestive heart failure): (5) Chronic atrial fibrillation: (6) Leg swelling: Patient HPI History of Present Illness: 88-year-old female known to our service for recent admission for CHF exacerbation presents to the emergency department with complaints of leg swelling. She has a history of CHF and a recent admission for CHF exacerbation and digoxin toxicity with acute kidney injury. She is currently a resident of [facility]. On presentation today she is noted to be 10 kg higher than her discharge weight from the hospital at the last time. She has altered mental status a BNP of 851, a creatinine of 2.0 which is elevated from the level of 1.1 at the time of her discharge from the hospital last time. She complains to me today that she is cold and she is hungry and that she does not feel well. She denies any shortness of breath at this time but notes that her legs are very swollen. She denies any fevers. No fever was noted at her care facility. She was noted to be mildly hypoxic at her care facility with an oxygen saturation of 92%. HOSPITAL COURSE Hospital Course: Patient is a 88-year-old female with a history of congestive heart failure with ejection fraction of 35% who presented with worsening lower extremity swelling. She was extensively diuresed in the first few days here, and her creatinine has continued to increase. She has poor urine output, and the oliguric range for the last few days. We then rehydrated her with some gentle IV fluid rehydration, i.e., 250 cc/day. On 06/21, I spoke with dip brazier, Max Magallon at [facility]. She is likely not going to be a good candidate for dialysis. He recommends holding fluids diuretics at this time, placing a Preciado catheter, and continuing to monitor her creatinine. Overnight, she appeared to worsen. She had increasing shortness of breath, and required an increase of her oxygen to 15 but eventually decreased to 6 L via nasal cannula. However, patient has still not made urine, i.e. only 235 cc in the last 24 hours. Her creatinine continued to increase with hyperkalemia. Her spoude eventually the decision to transition the patient to comfort care and was agreeable to hospice. She on the evening of 06/23/24 at 21:00 ALLERGIES Allergies Allergy/AdvReac Type Severity Reaction Status Date / Time No Known Drug Allergies Allergy Verified 06/15/24 15:16 MEDICATIONS Ambulatory Orders Medication Instructions Recorded Confirmed acetaminophen 325 mg tablet 650 mg (2 x 325 mg) PO Q4HR PRN 05/29/24 06/16/24 Pain 1 to 4, or Fever #90 tabs calcium carbonate 600 mg PO DAILY #30 tabs 05/29/24 06/16/24 carvedilol 25 mg tablet (Coreg) 25 mg PO BID #60 tabs 05/29/24 06/16/24 dorzolamide 2 % eye drops 1 drp ophthalmic (eye) BID #10 mL 05/29/24 06/16/24 latanoprost 0.005 % eye drops 1 drp ophthalmic (eye) QPM #2.5 mL 05/29/24 06/16/24 lidocaine 4 % topical patch 1 patch topical DAILY #30 ea 05/29/24 06/16/24 multivitamin 1 tab PO DAILY #30 tabs 05/29/24 06/16/24 apixaban 5 mg tablet (Eliquis) 5 mg PO BID 06/16/24 06/16/24 ascorbic acid (vitamin C) 500 mg 1,000 mg PO DAILY 06/16/24 06/16/24 capsule bumetanide 1 mg tablet 1 mg PO QPM 06/16/24 06/16/24 bumetanide 1 mg tablet 2 mg PO DAILY 06/16/24 06/16/24 spironolactone 25 mg tablet 25 mg PO DAILY 06/16/24 06/16/24 zinc 50 mg capsule 50 mg PO DAILY 06/16/24 06/16/24 LABS 06/22/24 05:34 06/22/24 05:34 Discharge Plan Discharge Patient Disposition: 20 Print Language: Slovenian Date/Time: 06/23/24 19:25
== END 2024-06-23 19:25 | disposition expired | DRG 689 ==
LOC: ED 15:12 → MS2 15:12
PROVIDERS: ADMIT Physician Assistant Medical; ATTEND Physician Assistant Medical